=== PATIENT | male | born 1950 | race Caucasian/White ===

== ENCOUNTER 2020-06-23 15:03 | Observation (INO) | payer MEDICARE, SELFPAY ==
[2020-06-23] VITALS (7 sets, daily range): BP systolic 106–137; BP diastolic 60–78; PULSE 64–73; RESP 13–22; TEMP 36.7–37.3; O2SAT 97–99; BMI 29.2
--- NOTE | 2020-06-23 15:24 | DI.US.S_ITS ---
PROCEDURE: US ABDOMEN COMPLETE INDICATIONS: RULE OUT GALLBLADDER DISEASE TECHNIQUE: Real-time scanning was performed of the abdominal and retroperitoneal organs, with image documentation. COMPARISON: None. FINDINGS: Liver: Liver is normal in size and homogeneous in echotexture. Gallbladder: Gallbladder wall thickening measuring 8 mm. Positive sonographic Oshea sign is present. There are multiple gallstones measuring up to 8 mm. Biliary ducts: Intrahepatic bile ducts are non-dilated. Extrahepatic bile duct caliber measures 3 mm. Normal is 6-7 mm or less in diameter, or 10 mm or less post-cholecystectomy. Pancreas: Visualized portions of the pancreas are sonographically normal. Spleen: Spleen is normal in size and homogeneous in echotexture. Kidneys: Kidneys are normal in size and echotexture. Right kidney measures 10.3 cm long; left kidney measures 10.0 cm long. No hydronephrosis or nephrolithiasis. No solid masses. Aorta: Visualized aorta is normal in caliber at less than 3 cm. Iliacs: Proximal common iliac arteries are normal in caliber at less than 2.5 cm. IVC: Intrahepatic inferior vena cava is patent. Miscellaneous: No free abdominal fluid. IMPRESSION: Cholelithiasis, gallbladder wall thickening and sonographic Oshea sign suspicious for acute cholecystitis is as above. Recommend clinical correlation and with LFTs. Dictated by: Aamir Miramontes M.D. on 06/23/2020 at 17:12 Approved by: Aamir Miramontes M.D. on 06/23/2020 at 17:15
[2020-06-23 15:43] LABS: Add Manual Diff / Slide Review NO; Basophils Absolute Auto 100 /uL (0-100); Basophils Percent Auto 1.3 % (0-2); Eosinophils Absolute Auto 300 /uL (0-450); Eosinophils Percent Auto 4.8 % (2-4); Hematocrit 43.1 % (41-53); Hemoglobin 14.5 g/dL (13.5-17.5); Lymphocytes Absolute Auto 1200 /uL (1100-4500); Lymphocytes Percent Auto 17.4 % (25-40); Mean Corpuscular HGB Conc 33.7 % (30-36); Mean Corpuscular Hemoglobin 30.5 PG (26-34); Mean Corpuscular Volume 90.6 fL (80-100); Monocytes Absolute Auto 400 /uL (0-900); Monocytes Percent Auto 5.9 % (3-14); Neutrophils Absolute Auto 4900 /uL (1500-7000); Neutrophils Percent Auto 70.6 % (50-75); Platelet Count 210 X10^3/uL (150-400); Red Blood Cell Count 4.76 X10^6/uL (4.5-5.9); Red Cell Distribution Width 13.9 % (11.6-14.8)
[2020-06-23 15:52] LABS: Prothrombin Time 23.2 SECONDS (10.1-12.7)
[2020-06-23 15:54] LABS: PTT Partial Thromboplastin Tim 53 SECONDS (26.4-36.2)
[2020-06-23 15:57] LABS: Alanine Aminotransferase 287 IU/L (<50); Albumin 4.5 g/dL (3.5-5.0); Albumin Globulin Ratio 1.4 (1.0-2.8); Alkaline Phosphatase 152 U/L (38-126); Aspartate Aminotransferase 204 IU/L (17-59); Bilirubin Total 2.3 mg/dL (0.2-1.3); Blood Urea Nitrogen 13 mg/dL (9-20); Calcium 9.4 mg/dL (8.4-10.2); Carbon Dioxide 28 mmol/L (22-32); Chloride 104 mmol/L (98-107); Estimated Glomerular Filt Rate > 60.0 mL/min (>60); Globulin 3.2 g/dL (1.7-4.1); Glucose 120 mg/dL (80-110); HEMOLYSIS < 15 (0-50); Lipase 148 U/L (23-300); Potassium 3.9 mmol/L (3.4-5.1); Sodium 137 mmol/L (137-145); Total Protein 7.7 g/dL (6.3-8.2)
--- NOTE | 2020-06-23 18:08 | ED_ITS ---
HPI - Abdominal Pain General Chief Complaint: Recheck/Abnormal Lab/Rx Stated Complaint: sent by MD - liver issues Time Seen by Provider: 06/23/20 15:14 Source: patient and family Mode of arrival: Ambulatory History of Present Illness HPI narrative: Patient here with . Sent here from Dr. Dc, primary care in [place] for abnormal liver enzymes in the office. Complains of 3 days of right upper quadrant pain. Nausea but no vomiting. No diarrhea. No fever chills. No recent illness. No cough cold congestion fever chills. MD complaint: abdominal pain Related Data Home Medications Medication Instructions Recorded Confirmed metoprolol succinate 25 mg PO DAILY 06/23/20 06/23/20 nitroglycerin 0.3 mg SUBLINGUAL Q5MIN PRN 06/23/20 06/23/20 oxycodone 5 mg PO Q8HR PRN 06/23/20 06/23/20 sacubitril-valsartan [Entresto] 0.5 tab PO BID 06/23/20 06/23/20 warfarin 1 mg PO SEEINSTR 06/23/20 06/23/20 warfarin 2 mg PO SEEINSTR 06/23/20 06/23/20 Allergies Allergy/AdvReac Type Severity Reaction Status Date / Time No Known Drug Allergies Allergy Verified 06/23/20 18:53 Review of Systems Review of Systems Narrative: GENERAL: Denies chills, fatigue, malaise, fever, sweats. HEENT: Denies sinus pain, ear pain, sore throat RESPIRATORY: Denies dyspnea, cough CARDIOVASCULAR: Denies chest pain, palpitations GASTROINTESTINAL: Denies nausea, vomiting, complains abdominal pain : Denies dysuria, frequency, hematuria MUSCULOSKELETAL: denies muscle or bony pain SKIN: Denies rash, skin lesions NEUROLOGIC: Denies weakness, numbness ROS Unobtainable: All systems reviewed & are unremarkable except as noted in HPI and below Patient History Medical History (Updated 06/24/20 @ 12:04 by Pau Avalos MD) Acute calculous cholecystitis Social History household members: spouse and children Smoking Status: Never smoker alcohol intake: current Smoking Status: Never smoker alcohol intake frequency: holidays/special occasions only Exam Narrative Exam Narrative: GENERAL: in no distress, not toxic not dyspneic HEAD: Normocephalic. EYES: Pupils equal round No scleral icterus. No injection no discharge ENT: Mucous membranes moist. NECK: Trachea midline. CARDIOVASCULAR: Regular rate and rhythm without murmurs RESPIRATORY: Clear to auscultation. Breath sounds equal bilaterally. No wheezes, rales, or rhonchi. GASTROINTESTINAL: Abdomen soft, positive Oshea sign. Reproducible right upper quadrant tenderness. Bowel sounds present. No peritoneal signs. EXTREMITIES: No gross deformities. BACK: No flank tenderness. NEURO: AOx4. SKIN: Warm and dry PSYCH: Not anxious, is cooperative Initial Vital Signs Initial Vital Signs: Vital Signs Temperature 98.0 F 06/23/20 15:18 Pulse Rate 72 06/23/20 15:18 Respiratory Rate 16 06/23/20 15:18 Blood Pressure 127/60 06/23/20 15:18 Pulse Oximetry 97 06/23/20 15:18 Course Course Course Narrative: No new issues during course of stay Decision to Admit Date: 06/23/20 Decision to Admit time: 18:17 Orders Ordered: Acetaminophen (Acetaminophen 325 Mg Tablet) 650 mg PO Q6HR PRN PRN Reason: Fever/Mild Pain (1-3) Sodium Chloride (Normal Saline 0.9%) 1,000 mls @ 75 mls/hr IV CONT LESTER Last Infusion: 06/24/20 10:12 Dose: 0 mls/hr Documented by: Admin: 06/24/20 08:53 Dose: 75 mls/hr Documented by: Infusion: 06/24/20 08:22 Dose: 75 mls/hr Documented by: Admin: 06/23/20 19:02 Dose: 75 mls/hr Documented by: YOVANY Lactated Ringer's (Lactated Ringers) 1,000 mls @ 100 mls/hr IV CONT LESTER Last Admin: 06/24/20 10:11 Dose: 100 mls/hr Documented by: LINK Morphine Sulfate (Morphine 2 Mg/Ml Inj) 2 mg IV Q4HR PRN PRN Reason: Pain, Moderate (4-6) Last Admin: 06/24/20 08:39 Dose: 2 mg Documented by: Admin: 06/24/20 04:06 Dose: 2 mg Documented by: Admin: 06/23/20 21:30 Dose: 2 mg Documented by: YOVANY Ondansetron HCl (Ondansetron 4 Mg/2 Ml Inj) 4 mg IV Q4HR PRN PRN Reason: Nausea And Vomiting Discontinued Medications Piperacillin/Tazobactam/Dextrose (Zosyn) 3.375 gm in 50 mls @ 100 mls/hr IV NOW ONE Stop: 06/23/20 18:49 Last Admin: 06/23/20 19:02 Dose: 100 mls/hr Documented by: YOVANY Reevaluation(s) Reevaluation #1: Pain control at this time. Patient does not want anything. Understands admit and likely surgery tomorrow. Time: 18:17 Consultations Consultation #1: Spoke with Dr. Avalos, general surgeon. Will admit patient. Time: 18:17 Vital Signs Vital signs: Vital Signs - 8 hr 06/23/20 15:18 Temperature 98.0 F Pulse Rate 72 Respiratory Rate 16 Blood Pressure 127/60 Pulse Oximetry 97 MDM - Abdominal Pain Differential Diagnosis Differential diagnosis: Likely abdominal pain, constipation, diverticulitis, pancreatitis, small bowel obstruction and other (Acute cholecystitis) Lab Data Attestation: I reviewed the patient's lab results. Result diagrams: 06/23/20 15:35 06/24/20 09:51 Labs: Lab Results 06/23/20 06/23/20 06/23/20 Range/Units 15:35 15:35 15:35 WBC 7.0 (4.5-11.0) X10^3/uL RBC 4.76 (4.5-5.9) X10^6/uL Hgb 14.5 (13.5-17.5) g/dL Hct 43.1 (41-53) % MCV 90.6 (80-100) fL MCH 30.5 (26-34) PG MCHC 33.7 (30-36) % RDW 13.9 (11.6-14.8) % Plt Count 210 (150-400) X10^3/uL Neut % (Auto) 70.6 (50-75) % Lymph % (Auto) 17.4 L (25-40) % [place] % (Auto) 5.9 (3-14) % Eos % (Auto) 4.8 H (2-4) % Baso % (Auto) 1.3 (0-2) % Neut # (Auto) 4900 (7820-9756) /uL Lymph # (Auto) 1200 (2904-8729) /uL [place] # (Auto) 400 (0-900) /uL Eos # (Auto) 300 (0-450) /uL Baso # (Auto) 100 (0-100) /uL PT 23.2 H (10.1-12.7) SECONDS INR 2.0 H (0.9-1.3) APTT 53 H (26.4-36.2) SECONDS Sodium 137 (137-145) mmol/L Potassium 3.9 (3.4-5.1) mmol/L Chloride 104 (98-107) mmol/L Carbon Dioxide 28 (22-32) mmol/L BUN 13 (9-20) mg/dL Creatinine 1.18 (0.66-1.25) mg/dL Estimated GFR > 60.0 (>60) mL/min BUN/Creatinine Ratio 11.0 (6-22) Glucose 120 H (80-110) mg/dL Calcium 9.4 (8.4-10.2) mg/dL Total Bilirubin 2.3 H (0.2-1.3) mg/dL AST 204 H (17-59) IU/L ALT 287 H (<50) IU/L Alkaline Phosphatase 152 H (38-126) U/L Total Protein 7.7 (6.3-8.2) g/dL Albumin 4.5 (3.5-5.0) g/dL Globulin 3.2 (1.7-4.1) g/dL Albumin/Globulin Ratio 1.4 (1.0-2.8) Lipase 148 (23-300) U/L SARS-CoV-2 (PCR) (Negative) 06/23/20 Range/Units 18:00 WBC (4.5-11.0) X10^3/uL RBC (4.5-5.9) X10^6/uL Hgb (13.5-17.5) g/dL Hct (41-53) % MCV (80-100) fL MCH (26-34) PG MCHC (30-36) % RDW (11.6-14.8) % Plt Count (150-400) X10^3/uL Neut % (Auto) (50-75) % Lymph % (Auto) (25-40) % [place] % (Auto) (3-14) % Eos % (Auto) (2-4) % Baso % (Auto) (0-2) % Neut # (Auto) (8568-5762) /uL Lymph # (Auto) (5619-5674) /uL Cabell # (Auto) (0-900) /uL Eos # (Auto) (0-450) /uL Baso # (Auto) (0-100) /uL PT (10.1-12.7) SECONDS INR (0.9-1.3) APTT (26.4-36.2) SECONDS Sodium (137-145) mmol/L Potassium (3.4-5.1) mmol/L Chloride (98-107) mmol/L Carbon Dioxide (22-32) mmol/L BUN (9-20) mg/dL Creatinine (0.66-1.25) mg/dL Estimated GFR (>60) mL/min BUN/Creatinine Ratio (6-22) Glucose (80-110) mg/dL Calcium (8.4-10.2) mg/dL Total Bilirubin (0.2-1.3) mg/dL AST (17-59) IU/L ALT (<50) IU/L Alkaline Phosphatase (38-126) U/L Total Protein (6.3-8.2) g/dL Albumin (3.5-5.0) g/dL Globulin (1.7-4.1) g/dL Albumin/Globulin Ratio (1.0-2.8) Lipase (23-300) U/L SARS-CoV-2 (PCR) Negative (Negative) Imaging Data US - abdomen: Radiologist's Impression: [address] [id number] ReportSigned Patient: Luis Mckeon LMR#: [id number]: 1950cct:[id number]/Sex: 69 / MDate of Service: 06/23/20Loc: EDAccession Number: [id number] Procedure: US abdomen complete Ordering Provider: Gil Davalos MD PROCEDURE: US ABDOMEN COMPLETE INDICATIONS: RULE OUT GALLBLADDER DISEASE TECHNIQUE: Real-time scanning was performed of the abdominal and retroperitoneal organs, with image documentation. COMPARISON: None. FINDINGS: Liver: Liver is normal in size and homogeneous in echotexture. Gallbladder: Gallbladder wall thickening measuring 8 mm. Positive sonographic Oshea sign is present. There are multiple gallstones measuring up to 8 mm. Biliary ducts: Intrahepatic bile ducts are non-dilated. Extrahepatic bile duct caliber measures 3 mm. Normal is 6-7 mm or less in diameter, or 10 mm or less post-cholecystectomy. Pancreas: Visualized portions of the pancreas are sonographically normal. Spleen: Spleen is normal in size and homogeneous in echotexture. Kidneys: Kidneys are normal in size and echotexture. Right kidney measures 10.3 cm long; left kidney measures 10.0 cm long. No hydronephrosis or nephrolithiasis. No solid masses. Aorta: Visualized aorta is normal in caliber at less than 3 cm. Iliacs: Proximal common iliac arteries are normal in caliber at less than 2.5 cm. IVC: Intrahepatic inferior vena cava is patent. Miscellaneous: No free abdominal fluid. IMPRESSION: Cholelithiasis, gallbladder wall thickening and sonographic Oshea sign suspicious for acute cholecystitis is as above. Recommend clinical correlation and with LFTs. Dictated by: Aamir Miramontes M.D. on 06/23/2020 at 17:12 Approved by: Aamir Miramontes M.D. on 06/23/2020 at 17:15 [facility] Narrative Medical decision making narrative: Appropriate for admission. Will need surgic al consult/admit Discharge Plan Departure Patient Disposition: Admitted as Observation Clinical Impression: Acute calculous cholecystitis Admit Date/Time: 06/23/20 18:08 Admit Provider: Pau Avalos
[2020-06-23 18:19] LABS: COVID19 -Nasal RAPID Negative (Negative)
[2020-06-23] MEDS: PIPERACILLIN-TAZO 3.375 GM/50 ML FROZ.PIGGY IV (19:02)
[2020-06-23] MEDS: SODIUM CHLORIDE 0.9% 1,000 ML 75 ML IV (19:02)
--- NOTE | 2020-06-23 19:14 | PC.NURSE ---
Admission note: Patient arrived via wheelchair accompanied by and ED QUALITY ASSURANCE ADVISOR, transferred self to inpatient bed and ambulated to toilet with no difficulties. Denies recent hx of falls. Hx of mechanical heart valve for which he takes warfarin, tele placed and ICU notified. Patient has not taken his warfarin today. C/o chest pain r/t anxiety of needing surgery, does have a history of angina for which he's prescribed nitro but has not taken his home prescription in a while. VSS and on room air. Low fall risk, bed alarm on d/t IV fluids infusion, call light and fall risk safety education given, acknowledges all instructions.
[2020-06-23] MEDS: MORPHINE 2 MG/ML INJ IV (21:30)
[2020-06-24 01:29] VITALS: BP 110/67; PULSE 69; RESP 14; TEMP 36.4; O2SAT 97
[2020-06-24] MEDS: MORPHINE 2 MG/ML INJ IV ×5 (04:06→23:17)
[2020-06-24 04:40] VITALS: BP 125/70; PULSE 83; RESP 18; TEMP 36.6; O2SAT 96
[2020-06-24] MEDS: SODIUM CHLORIDE 0.9% 1,000 ML 75 ML IV (08:53)
[2020-06-24 10:09] LABS: INR 1.9 (0.9-1.3); Prothrombin Time 22.4 SECONDS (10.1-12.7)
[2020-06-24] MEDS: LACTATED RINGERS 1,000 ML 100 ML IV ×2 (10:11→23:11)
[2020-06-24 10:12] LABS: Alanine Aminotransferase 175 IU/L (<50); Albumin 3.5 g/dL (3.5-5.0); Albumin Globulin Ratio 1.2 (1.0-2.8); Alkaline Phosphatase 116 U/L (38-126); Aspartate Aminotransferase 84 IU/L (17-59); BUN Creatinine Ratio 11.8 (6-22); Bilirubin Total 1.9 mg/dL (0.2-1.3); Blood Urea Nitrogen 12 mg/dL (9-20); Calcium 8.6 mg/dL (8.4-10.2); Carbon Dioxide 27 mmol/L (22-32); Chloride 109 mmol/L (98-107); Estimated Glomerular Filt Rate > 60.0 mL/min (>60); Globulin 2.9 g/dL (1.7-4.1); Glucose 88 mg/dL (80-110); HEMOLYSIS 31 (0-50); Potassium 3.9 mmol/L (3.4-5.1); Sodium 137 mmol/L (137-145); Total Protein 6.4 g/dL (6.3-8.2)
[2020-06-24 11:18] VITALS: BP 96/62; PULSE 67; RESP 19; TEMP 36.7; O2SAT 97
--- NOTE | 2020-06-24 11:52 | P.HP_ITS ---
History of Present Illness History of Present Illness Date Patient Seen: 06/24/20 Time Patient Seen: 08:53 Date of Onset of Symptoms: 06/21/20 Chief complaint: sent by MD - liver issues Narrative: 69 yo male seen in consult for Dr. Bell in ED for 3 days of RUQ pain, decreased appetite, nausea. no fevers. he has had prior events that slaughter bsided w/o hospitalization. Has congenital heart defect and on coumadin. COVID negative. Patient History Medical History (Updated 06/24/20 @ 12:03 by Pau Avalos MD) Acute calculous cholecystitis Family & Social History Social History: household members spouse,children Prior Living Arrangements Apartment/Condo Safety & Behavioral: Feels Safe in Current Yes Environment Been Physically Hurt or No Threatened By a Person Suicidal Ideation Description None Suicide Plan Description No Plan Tobacco & Substance use: Smoking Status Never smoker alcohol intake current alcohol intake frequency holiday/special occasion Substance Use Type does not use Meds Home Medications and Allergies Home Medications Medication Instructions Recorded Confirmed Type metoprolol succinate 25 mg PO DAILY 06/23/20 06/23/20 History nitroglycerin 0.3 mg SUBLINGUAL Q5MIN PRN 06/23/20 06/23/20 History oxycodone 5 mg PO Q8HR PRN 06/23/20 06/23/20 History sacubitril-valsartan [Entresto] 0.5 tab PO BID 06/23/20 06/23/20 History warfarin 1 mg PO SEEINSTR 06/23/20 06/23/20 History warfarin 2 mg PO SEEINSTR 06/23/20 06/23/20 History Allergies Allergy/AdvReac Type Severity Reaction Status Date / Time No Known Drug Allergies Allergy Verified 06/23/20 18:53 Review of Systems Review of Systems ROS: Yes All systems reviewed with the patient and are negative except as otherwise documented Gastrointestinal Gastrointestinal: Reports abdominal pain Exam Vital Signs (past 8 hours): - 06/24/20 04:40 Temperature 97.9 F Pulse Rate 83 Respiratory Rate 18 Blood Pressure 125/70 Pulse Oximetry 96 Oxygen Delivery Method Room Air Oxygen Flow Rate 0 Const General: cooperative HENMT Head: normocephalic and atraumatic Mouth: oral mucosae normal Eyes Sclera: sclerae normal Neck Neck: trachea midline Chest Chest: normal inspection of the chest (midline scar, reports discomfort left upper chest with deep breath) Resp Effort & Inspection: normal respiratory effort and able to speak in complete sentences Cardio Rate: regular rate Rhythm: regular rhythm GI Inspection: distended Palpation: soft and tender (RUQ) Skin General: no rashes or lesions noted Neuro General: patient alert, patient oriented x3 and no focal motor deficits Extrem General: normal to inspection and full ROM Psych Judgment: judgment good Objective Labs Result Diagrams: 06/23/20 15:35 06/24/20 09:51 Labs: Laboratory Results - last 24 hr 06/23/20 06/23/20 06/23/20 15:35 15:35 15:35 WBC 7.0 RBC 4.76 Hgb 14.5 Hct 43.1 MCV 90.6 MCH 30.5 MCHC 33.7 RDW 13.9 Plt Count 210 Neut % (Auto) 70.6 Lymph % (Auto) 17.4 L [place] % (Auto) 5.9 Eos % (Auto) 4.8 H Baso % (Auto) 1.3 Neut # (Auto) 4900 Lymph # (Auto) 1200 [place] # (Auto) 400 Eos # (Auto) 300 Baso # (Auto) 100 PT 23.2 H INR 2.0 H APTT 53 H Sodium 137 Potassium 3.9 Chloride 104 Carbon Dioxide 28 BUN 13 Creatinine 1.18 Estimated GFR > 60.0 BUN/Creatinine Ratio 11.0 Glucose 120 H Calcium 9.4 Total Bilirubin 2.3 H AST 204 H ALT 287 H Alkaline Phosphatase 152 H Total Protein 7.7 Albumin 4.5 Globulin 3.2 Albumin/Globulin Ratio 1.4 Lipase 148 SARS-CoV-2 (PCR) 06/23/20 06/24/20 06/24/20 18:00 09:34 09:51 WBC RBC Hgb Hct MCV MCH MCHC RDW Plt Count Neut % (Auto) Lymph % (Auto) [place] % (Auto) Eos % (Auto) Baso % (Auto) Neut # (Auto) Lymph # (Auto) [place] # (Auto) Eos # (Auto) Baso # (Auto) PT 22.4 H INR 1.9 H APTT Sodium 137 Potassium 3.9 Chloride 109 H Carbon Dioxide 27 BUN 12 Creatinine 1.02 Estimated GFR > 60.0 BUN/Creatinine Ratio 11.8 Glucose 88 Calcium 8.6 Total Bilirubin 1.9 H AST 84 H ALT 175 H Alkaline Phosphatase 116 Total Protein 6.4 Albumin 3.5 Globulin 2.9 Albumin/Globulin Ratio 1.2 Lipase SARS-CoV-2 (PCR) Negative Assessment & Plan Assessment and plan (1) Acute calculous cholecystitis: Problem details: US confirms acute glenis. elevated LFT's trending down consistent with no true biliary obstruction. INR 1.9 today. Plan: Lap glenis in am to allow INR to drift to safer value. Status: Acute Quality VTE Deep Vein Thrombosis/Pulmonary Embolism Present on Admission: No
--- NOTE | 2020-06-24 13:11 | CM.DANOTE ---
Patient is a 69 yo male who was admitted on 06/23/20 for Liver Issues. Pt has MCR and AARP for insurance and his PCP is Dr. Mohini Dc in [facility]. EMR was reviewed. Per MD, pt with gallbladder thickening and awaiting Surgeon Consult to determine possible surgery for cholecystitis. Per linen keeper, pt scheduled for 1400 surgery today. SW met bedside with pt and explained role and he confirms he has not seen the Surgeon Dr. Avalos yet bedside and unsure if he will need surgery. He states he lives at home in an apt in [place] with his , who does not drive, and his adult son who does drive. Pt is retired and independent with ADL's at baseline and still drives himself and states his son and can assist if needed at d/c. Pt denies any DPOA but plans to complete pwk in the near future. Pt denies any hx of SNF but states he used HH after one of his open heart surgeries. Pt preference is to d/c home with family assist when medically stable. Plan: SW to follow tomorrow to determine how pt is progressing after scheduled surgery with Surgeon regarding his gallbladder at 1400 today to confirm if he will be safe for d/c home with family assist and any further identified needs. MARIO Escalera Discharge Planning/Care Management CM Discharge Assessment Start: 06/24/20 13:10 Freq: Status: Active Protocol: Document 06/24/20 13:10 BF (Rec: 06/24/20 13:11 BF [id number]) Discharge Planning Assessment Assigned Content Writer MARIO Amaro DPOA/Assigned Designee Name none, considering DPOA pwk Advance Directives? No Advance Directives on File No History Provided By Patient,Family Member,Medical Record Has Patient been admitted in last 30 No days? Prior Living Arrangements Apartment/Condo Household Members spouse,children Type of transporation used prior to Drives own vehicle admit Independent with ADL's Yes Is patient alert and oriented? Yes Caregiver for Another No Comment Pending pt's needs after surg today at 1400 Barriers to Discharge No Discharge Plan Home with Home Health Transportation Arrangement Pt states his son can provide transport at d/c Additional Comment Pending surg today Whiteboard Updated in Patient Room with Yes name and ext. # of Content Writer Review Status In Process Please Provide Date Initial DC 06/24/20 Assessment Was Performed Next Review Type Continued Stay Review
--- NOTE | 2020-06-24 15:52 | PC.NURSE ---
1200- Dr. Avalos reports pt will not have surgery today, but scheduled it for tomorrow 0745. She placed consent form in chart, unsigned, stated she will have him sign it when he is brought down for pre-op tomorrow am. Verbal order for Low Fat diet for lunch and dinner, NPO at midnight.
[2020-06-24 16:38] VITALS: BP 100/60; PULSE 75; RESP 17; TEMP 36.6; O2SAT 97
[2020-06-24 19:45] VITALS: BP 120/66; PULSE 75; RESP 18; TEMP 36.6; O2SAT 100
[2020-06-24 23:00] VITALS: BP 116/69; PULSE 64; RESP 18; TEMP 36.8; O2SAT 96
[2020-06-25] VITALS (23 sets, daily range): BP systolic 100–145; BP diastolic 63–81; PULSE 6–91; RESP 8–18; TEMP 36.4–37.6; O2SAT 92–100; BMI 29.1
--- NOTE | 2020-06-25 | PATH_ITS ---
[facility] Accession Number: [id number] . 01 Material submitted: . gallbladder - GALLBLADDER . 01 Clinical history: . SEND BY LIVER ISSUES . 02 Diagnosis: Gallbladder, Cholecystectomy: Cholelithiasis with mild chronic cholecystitis and cholesterolosis. No evidence of neoplasm. MRV 06/30/2020 1027 Local . 02 Electronically signed: . Jericho Burciaga MD, PhD, Pathologist NPI- [id number] . 01 Gross description: . The specimen is received in formalin, labeled gallbladder, and consists of a 7.0 x 3.0 x 2.8 cm previously disrupted gallbladder with a 0.3 cm in diameter cystic duct. The serosa is pink-purple to carranza and wrinkled. Opening reveals green viscous bile with multiple carranza-green cholelith fragments ranging from 0.1-0.4 cm and measuring 2.5 x 2.5 x 1.0 cm in aggregate. The mucosa is carranza-green with severe cholestrolosis. The wall thickness measures 0.3 cm. Dental Service Chief sections are submitted, to include the en face cystic duct margin, in cassette A1. ([id number]) /[facility] 06/27/2020 1500 Local . 02 Pathologist provided ICD-10: K80.60, K81.1 . 02 CPT . 465194 Performed at: 01 [facility] [address] [id number] MD Zhang Echeverria MD Phone: [phone] Performed at: 02 [facility] [address] [place], [place] [id number] MD Lis Gonzalez MD Phone: [phone]
[2020-06-25] MEDS: ONDANSETRON 4 MG/2 ML INJ IV (02:37)
[2020-06-25] MEDS: LACTATED RINGERS 1,000 ML 42 ML IV (07:20)
--- NOTE | 2020-06-25 07:22 | PC.NURSE ---
Patient was taken to OR via stretcher at 0710. Telemetry was removed by PHYSICS TECHNICAL OFFICER before departing.
--- NOTE | 2020-06-25 07:26 | PC.NURSE ---
Patient not in room, picked up for surgery at 0705am. Report received from nightshift, plan to assume care upon his return.
--- NOTE | 2020-06-25 07:41 | PM.PREOP ---
Pre-operative Note COVID-19 COVID-19 status: Negative Interval Note History & Physical reviewed/Exam performed by Physician: Yes Changes to H&P: No
[2020-06-25] MEDS: ACETAMINOPHEN 325 MG TABLET 650 MG PO (08:04)
[2020-06-25] MEDS: METOPROLOL ER 25 MG TABLET PO (08:05)
[2020-06-25] MEDS: OXYCODONE IR 5 MG TABLET PO ×4 (08:05→16:17)
[2020-06-25] MEDS: CEFAZOLIN 2 GM/100 ML FROZ.PIGGY IV (09:10)
--- NOTE | 2020-06-25 09:22 | SUR.OPER ---
Supine on padded OR bed, head on pillow, arms secured on padded arm boards at <90 degrees abduction, legs uncrossed, safety belt at thigh, tape over blanket over lower legs.
[2020-06-25] MEDS: BUPIVACAINE 0.5% W/ EPI (PF) 30 ML VIAL INJ (09:39)
--- NOTE | 2020-06-25 10:35 | PM.OP.1 ---
Operative Date/Time/Diagnoses Date of procedure: 06/25/20 Time of procedure: 10:36 Pre-op diagnosis: acute cholecystitis Post-op diagnosis: same Procedure & Clinicians Same procedure as scheduled: Yes Post-operative Condition: stable Disposition: PACU Plan for aftercare: Discharge home.
[2020-06-25] MEDS: LACTATED RINGERS 1,000 ML 100 ML IV ×2 (10:36→17:18)
--- NOTE | 2020-06-25 10:36 | PM.OP.1 ---
Procedure & Clinicians Procedure: Laparoscopic cholecystectomy Same procedure as scheduled: Yes Indications: Acute cholecystitis Surgeon: Pau Avalos Click Yes if Unassisted: Yes Anesthesia Type: General Operative Notes Findings: Acute cholecystitis Closure Type: primary Specimen(s): other Estimated Blood Loss (mL): 20 Blood products transfused: none Procedure in detail: Patient is placed in a supine position. Prepped and draped in sterile fashion. Infraumbilical port site was placed in open technique and a 12 mm port. Insufflation began in all other ports were placed under direct vision, this included 11 mm port in the midepigastrium, 2 5 mm ports in the right lateral abdomen. Gallbladder was identified, decompressed, then lifted cephalad for exposure. Cystic duct was identified clipped once distally twice proximally and transected. Cystic artery was identified clipped once distally once proximally and transected. Gallbladder is removed from the fossa with electrocautery and excellent hemostasis. There was no spillage of stones, small amount of bile spillage which was irrigated to a clear return. Gallbladder was placed into an Endo-Catch bag and pulled through the umbilical port site intact. Abdomen was surveyed for hemostasis and suctioned free of any retained fluid or clot. I then removed all ports and began closure. Closure consisted of interrupted 0 Vicryl for fascial closure at the umbilical port site. Skin was closed a running 4-0 Vicryl. Steri-Strips and sterile dressings were placed. Patient was awakened, extubated, taken to recovery room in stable condition. Needle, instrument, sponge counts were correct. Blood loss: 20 mL Specimen: Gallbladder Complications: none
[2020-06-25] MEDS: fentaNYL 100 MCG/2 ML INJ IV ×3 (12:23→12:33)
--- NOTE | 2020-06-25 14:27 | PC.NURSE ---
Patient still off unit in PACU
--- NOTE | 2020-06-25 14:32 | SUR.PHASEII ---
Assumed pt from Noman Phoenix RN, pt on his way to , fairly steady on feet with SBA. Pt voided in BR, bloody drainage on floor in BR and drips from BR to bed. pressure to wound x 5minutes then new steri stips placed. Wound still oozing bloody drainage. Dr. Kulkarni called instructed to hold pressure for 10 minutes. Pressure held for 10 minutes, new steri strips again applied, wound still oozing, reinforced with [address] Kulkarni called again. Pt to stay over night, Kayla LEACH coordinator upstairs notified. Report called to HANY Hyde. Awaiting transfer orders from Dr. Kulkarni. Pt up to BR to void again, wound again leaked reinforced with gauze.
--- NOTE | 2020-06-25 15:11 | SUR.PHASEII ---
Pt transported up to room 210, left in stable condition with Barrett LEACH.
--- NOTE | 2020-06-25 15:29 | PC.NURSE ---
Patient received from PACU at 1500 back to his room, after orders for patient to stay overnight. at bedside. VSS. Patient awake and talkative, states his pain is minimal at about 2/10 to his abdomen. Steri strips and gauze dressing in place to lap sites to abdomen, all CDI, no bleeding or drainage noted after he was up to bathroom this time. Call light within reach. Report given to evening shift RN.
[2020-06-25 15:50] LABS: Hematocrit 42.6 % (41-53)
[2020-06-25] MEDS: MORPHINE 2 MG/ML INJ IV ×2 (17:17→23:38)
[2020-06-25] MEDS: IBUPROFEN 600 MG TABLET PO ×2 (17:17→23:37)
[2020-06-25] MEDS: WARFARIN 1 MG TABLET PO (17:18)
[2020-06-26] MEDS: OXYCODONE IR 5 MG TABLET PO ×2 (01:50→10:36)
[2020-06-26 05:00] VITALS: BP 98/58; PULSE 63; RESP 18; TEMP 36.4; O2SAT 95
[2020-06-26] MEDS: LACTATED RINGERS 1,000 ML 100 ML IV (05:01)
[2020-06-26] MEDS: IBUPROFEN 600 MG TABLET PO (05:05)
[2020-06-26] MEDS: MORPHINE 2 MG/ML INJ IV (05:54)
[2020-06-26 07:50] VITALS: BP 101/61; PULSE 64; RESP 15; TEMP 36.3; O2SAT 94
[2020-06-26 08:24] VITALS: BP 102/56; PULSE 70
[2020-06-26] MEDS: Sacubitril-Valsartan [Entresto] 24-26 mg 0.5 EACH PO (09:33)
--- NOTE | 2020-06-26 09:54 | PM.DS.1 ---
History of Present Illness History of Present Illness Chief complaint: sent by MD - liver issues Narrative: 69 yo male seen in consult for Dr. Bell in ED for 3 days of RUQ pain, decreased appetite, nausea. no fevers. he has had prior events that subsided w/o hospitalization. Has congenital heart defect and on coumadin. COVID negative. Discharge Providers Provider Date of admission: 06/23/20 18:08 Discharge Date: 06/26/20 Primary care physician: JAMAL Morris Discharge provider: Pau Avalos MD Summary Hospital Course Discharge Diagnosis: acute glenis, chronic anticoagulation. Hospital Course: uncomplicated post op. held for pain control and observation of bleeding vs drainage for port site that was actually drainage only Status at Discharge Cognitive/behavioral status at discharge: at baseline, oriented Time Spent with Patient Time spent: Less than 30 minutes Exam Vital Signs (past 8 hours): - 06/26/20 05:00 06/26/20 07:50 06/26/20 08:24 Temperature 97.6 F 97.3 F L Pulse Rate 63 64 70 Respiratory Rate 18 15 Blood Pressure 98/58 L 101/61 102/56 L Pulse Oximetry 95 94 Oxygen Delivery Method Room Air Oxygen Flow Rate 0 Const General: cooperative and comfortable Eyes General: appearance normal, both eyes and all related structures Cardio Rhythm: regular rhythm GI Palpation: soft and tender (incisional tenderness, no further drainage) Objective Labs Result Diagrams: 06/25/20 15:23 06/24/20 09:51 Labs: Laboratory Results - last 24 hr 06/25/20 15:23 Hct 42.6 PFSH Medical History Acute calculous cholecystitis Ascending aortic aneurysm Chronic pain HTN (hypertension) Kidney stones Surgical History AICD (automatic cardioverter/defibrillator) present S/P AVR (aortic valve replacement) and aortoplasty S/P CABG (coronary artery bypass graft) Status post laparoscopic cholecystectomy Social History household members: spouse and children Smoking Status: Never smoker alcohol intake: current Discharge Assessment & Plan Assessment and Plan Assessment: a/p lap glenis. no further drainage from port site. no clinical complication. incision pain Plan of Treatment: final check on CBC and CMP, if baseline or appropriate patient can discharge home with follow up [facility] in 2-4 weeks. Discharge Plan Discharge Plan Patient Disposition: Home Provider Discharge Comment: follow up with [facility] in 2-4 weeks Nursing Discharge Comment: per Dr Avalos, pt to start warfarin tonight as previously prescribed. Discharge orders & Medications Prescriptions: New oxycodone-acetaminophen [Percocet] 10-325 mg tablet 1 tab PO Q8H PRN (Reason: pain) Qty: 20 RF: 0 Continued nitroglycerin 0.3 mg tablet, sublingual 0.3 mg sublingual Q5MIN PRN (Reason: Chest Pain) RF: 0 metoprolol succinate 25 mg tablet extended release 24 hr 25 mg PO DAILY RF: 0 warfarin 1 mg tablet 2 mg PO SEEINSTR RF: 0 warfarin 1 mg tablet 1 mg PO SEEINSTR RF: 0 oxycodone 5 mg tablet 5 mg PO Q8HR PRN (Reason: Pain (Scale Score 4-6)) RF: 0 Entresto 24-26 mg tablet 0.5 tab PO BID RF: 0 Follow up/Referrals: Mohini Dc ARNP [Primary Care Provider] - Diet/Activity/Treatments Diet: Diet as Tolerated Activity: no heavy lifting greater than 15 lbs for 4 weeks. Skin/Wound/Dressing Care Report to your healthcare provider any signs of infection, such as:: chills, fever, increased pain, unusual drainage and unusual redness Visit Report/Discharge Packet Instructions: DI for Laparoscopy, DI for Prescription Opioid Use, [facility]: Wound Care Stand Alone Forms: Surgery Discharge Discharge Data Primary Care Provider: Mohini Dc Attending Provider: Pau Avalos VTE Deep Vein Thrombosis/Pulmonary Embolism Present on Admission: No
[2020-06-26] MEDS: ENOXAPARIN 80 MG/0.8 ML SYRINGE SUBCUT (10:35)
[2020-06-26] MEDS: ONDANSETRON 4 MG ODT 8 MG PO (10:36)
[2020-06-26 11:20] LABS: Hematocrit 38.5 % (41-53); Hemoglobin 12.7 g/dL (13.5-17.5); Mean Corpuscular HGB Conc 33.1 % (30-36); Mean Corpuscular Volume 90.8 fL (80-100); Platelet Count 182 X10^3/uL (150-400); Red Blood Cell Count 4.24 X10^6/uL (4.5-5.9); Red Cell Distribution Width 13.9 % (11.6-14.8); White Blood Cell Count 10.4 X10^3/uL (4.5-11.0)
[2020-06-26 11:37] LABS: Alanine Aminotransferase 134 IU/L (<50); Albumin 3.4 g/dL (3.5-5.0); Albumin Globulin Ratio 1.2 (1.0-2.8); Alkaline Phosphatase 120 U/L (38-126); Aspartate Aminotransferase 74 IU/L (17-59); BUN Creatinine Ratio 17.6 (6-22); Bilirubin Total 1.1 mg/dL (0.2-1.3); Blood Urea Nitrogen 19 mg/dL (9-20); Calcium 9.1 mg/dL (8.4-10.2); Carbon Dioxide 31 mmol/L (22-32); Chloride 103 mmol/L (98-107); Estimated Glomerular Filt Rate > 60.0 mL/min (>60); Globulin 2.9 g/dL (1.7-4.1); Glucose 107 mg/dL (80-110); Sodium 136 mmol/L (137-145); Total Protein 6.3 g/dL (6.3-8.2)
[2020-06-26 11:43] LABS: HEMOLYSIS < 15 (0-50); Potassium 4.3 mmol/L (3.4-5.1)
--- NOTE | 2020-06-26 11:45 | PC.NURSE ---
VSS. Pain controlled with PRN oxy and nausea controlled with PRN zofran. Given discharge instructions and all questions answered. Escorted to personal vehicle by wheel chair, son driving him home. Off of unit at 11:47.
--- NOTE | 2020-07-01 17:06 | PC.NURSE ---
Late Entry; Zosyn infusion initiated /2 at 19:02 complete at 19:33.
== END 2020-06-26 11:45 | disposition home or self-care (01) ==
LOC: ED 17:56 → AC 18:09
PROVIDERS: Admitting Provider Surgery; Emergency Provider Emergency Medicine; PCP Nurse Practitioner Family; Referring Provider Emergency Medicine; Visit Provider Surgery
PROC: 0FT44ZZ Resection of Gallbladder, Percutaneous Endoscopic Approach (ICD-10-PCS; CPT 47562; principal; 2020-06-25 07:45)
DX: K80.00 Calculus of gallbladder with acute cholecystitis without obstruction (principal); R10.11 Right upper quadrant pain; Z95.0 Presence of cardiac pacemaker; Z95.1 Presence of aortocoronary bypass graft; I50.9 Heart failure, unspecified; I10 Essential (primary) hypertension; Z20.822 Contact with and (suspected) exposure to COVID-19
CPT/HCPCS: 47562; 36415; 76700; 80053; 83690; 85014; 85025; 85027; 85610; 85730; 87635; 96361; 96365; 96372; 96375; 96376; 99219; 99283; 99284; C9803; G0378; J0330; J0690; J1100; J1650; J2250; J2270; J2405; J2543; J2704; J3010

== ENCOUNTER 2021-11-17 11:12 | Inpatient (IN) | payer MEDICARE, SELFPAY ==
[2020-06-29 15:34] VITALS: BMI 29.2
[2021-11-17] VITALS (12 sets, daily range): BP systolic 97–151; BP diastolic 59–77; PULSE 50–78; RESP 14–19; TEMP 35.7–36.5; O2SAT 96–98; BMI 28.1
--- NOTE | 2021-11-17 11:25 | DI.CT.S_ITS ---
PROCEDURE: CT ANGIO HEAD AND NECK INDICATIONS: Possible stroke TECHNIQUE: Noncontrast images were performed earlier in the day and not repeated. After the administration of intravenous contrast, 1 mm thick sections acquired from the aortic arch through the Kiana of Garcia. Post-contrast 4.5 mm thick sections then re-acquired from the foramen magnum to the vertex. 3-dimensional kznevff-nnxpbyhuf-cwlvwfgvhp (MIP) and/or volume rendering reformats were acquired of the central intracranial vasculature and neck separately. For radiation dose reduction, the following was used: automated exposure control, adjustment of mA and/or kV according to patient size. COMPARISON: [facility], CR, XR CHEST 1V, 11/17/2021, 11:37. [facility], CT, CT STROKE, 11/17/2021, 11:30. FINDINGS: Image quality: Limited by bolus timing, with venous contamination. BRAIN: CSF spaces: Ventricles are normal in size and shape. Basal cisterns are patent. No extra-axial fluid collections. Brain: No midline shift. No intracranial bleeds or masses. Chen-white matter interface appears intact. Skull and face: Calvarium and facial bones appear intact, without suspicious lesions. Orbits appear normal. Sinuses: Mild paranasal sinus disease is seen. No abnormal fluid is seen within the mastoid air cells. HEAD CT ANGIOGRAPHY: Anterior circulation: Intracranial internal carotid arteries are normal in size and flow. The flow within the paired anterior cerebral arteries is normal and symmetric. The flow within the middle cerebral arteries is normal and symmetric. The anterior communicating artery is seen. No aneurysms are seen. Posterior circulation: Visualized portions of the vertebral arteries demonstrate normal caliber, and join to form a normal appearing basilar artery. Flow within the posterior cerebral arteries is normal and symmetric. No aneurysms are seen. NECK CT ANGIOGRAPHY: Carotid system: Incidental note is made of a common origin of the right brachiocephalic artery and the left common carotid artery (bovine type arch). This is considered to be a developmental variant of no clinical consequence. The origins of the common carotid arteries appear patent. The common carotid arteries demonstrate normal caliber and courses. The bifurcation regions are both widely patent. The internal carotid arteries demonstrate normal calibers and courses. Posterior circulation: The origins of the vertebral arteries both appear widely patent. The more superior extracranial portions of both vertebral arteries also demonstrate normal courses and calibers. They join to form a normal appearing basilar artery. Soft tissues: Visualized neck soft tissues demonstrate no suspicious abnormalities. Left-sided pacer leads are seen Bones: No suspicious bony lesions. Visualized cervical spine appears normally aligned. Moderate cervical spine degenerative change can be seen. Sternotomy wires are partially seen. IMPRESSION: No significant intracranial arterial abnormality is seen. Within the arteries of the neck, no hemodynamically significant stenosis can be seen. Incidental note is made of: Moderate cervical spine degenerative change Bovine type aortic branching pattern Left-sided pacer leads Sternotomy wires Any quantitative measurements of stenosis were performed using NASCET criteria. Dictated by: Rosalio Mares M.D. on 11/17/2021 at 10:56 Approved by: Rosalio Mares M.D. on 11/17/2021 at 10:59
--- NOTE | 2021-11-17 11:25 | DI.CT.S_ITS ---
PROCEDURE: CT STROKE INDICATIONS: Positive BE-FAST, Stroke symptoms TECHNIQUE: Noncontrast 4.5 mm thick angled axial sections acquired from the foramen magnum to the vertex, with coronal reformats. For radiation dose reduction, the following was used: automated exposure control, adjustment of mA and/or kV according to patient size. COMPARISON: None. FINDINGS: Image quality: Excellent. CSF spaces: Basal cisterns are patent. No extra-axial fluid collections. The ventricles are symmetric in size and shape. Brain: No intracranial bleeds or masses. There is cerebral volume loss for age, with resultant ventricular and sulcal prominence. There are periventricular and deep white matter chronic small vessel ischemic changes. There is intracranial internal carotid artery atherosclerosis. Skull and face: Calvarium and visualized facial bones appear intact, without suspicious lesions. Sinuses: Bilateral maxillary sinus mucosal thickening. The mastoids are clear. IMPRESSION: 1. No acute intracranial abnormalities. 2. Cerebral volume loss and chronic microvascular ischemic changes. 3. Bilateral maxillary sinus mucosal thickening. The result was discussed with Dr. Valero in ER prior to dictation. This study fulfills neurological imaging criteria for inclusion or exclusion of acute stroke therapies based on available published neurological guidelines. Dictated by: Stuart Mendiola M.D. on 11/17/2021 at 11:41 Approved by: Stuart Mendiola M.D. on 11/17/2021 at 11:44
--- NOTE | 2021-11-17 11:25 | DI.RAD.S_ITS ---
PROCEDURE: XR CHEST 1V INDICATIONS: Possible stroke TECHNIQUE: One view of the chest was acquired. COMPARISON: None. FINDINGS: Surgical changes and devices: Median sternotomy wires are present and appear intact. Left-sided cardiac pacer device is in place. Lungs and pleura: Lungs are clear. No pleural effusions or pneumothorax. Mediastinum: Mediastinal contours appear normal. Heart size is normal. Bones and chest wall: No suspicious bony lesions. Overlying soft tissues appear unremarkable. IMPRESSION: Chest without acute cardiopulmonary abnormalities or focal airspace disease. Dictated by: Melquiades Julian M.D. on 11/17/2021 at 12:00 Approved by: Melquiades Julian M.D. on 11/17/2021 at 12:00
[2021-11-17 11:41] LABS: Add Manual Diff / Slide Review NO; Basophils Absolute Auto 100 /uL (0-100); Eosinophils Absolute Auto 500 /uL (0-450); Hematocrit 43.1 % (41-53); Hemoglobin 14.5 g/dL (13.5-17.5); Lymphocytes Absolute Auto 1000 /uL (1100-4500); Lymphocytes Percent Auto 16.5 % (25-40); Mean Corpuscular HGB Conc 33.6 % (30-36); Mean Corpuscular Volume 89.5 fL (80-100); Monocytes Absolute Auto 500 /uL (0-900); Monocytes Percent Auto 7.8 % (3-14); Neutrophils Absolute Auto 4200 /uL (1500-7000); Neutrophils Percent Auto 66.7 % (50-75); Platelet Count 212 X10^3/uL (150-400); Red Blood Cell Count 4.82 X10^6/uL (4.5-5.9); Red Cell Distribution Width 13.3 % (11.6-14.8); White Blood Cell Count 6.3 X10^3/uL (4.5-11.0)
[2021-11-17 11:49] LABS: Prothrombin Time 34.4 SECONDS (10.1-12.7)
[2021-11-17 11:51] LABS: PTT Partial Thromboplastin Tim 60 SECONDS (26.4-36.2)
[2021-11-17 11:53] LABS: Alanine Aminotransferase 18 IU/L (<50); Albumin 4.1 g/dL (3.5-5.0); Albumin Globulin Ratio 1.2 (1.0-2.8); Alkaline Phosphatase 83 U/L (38-126); Aspartate Aminotransferase 32 IU/L (17-59); BUN Creatinine Ratio 15.7 (6-22); Blood Urea Nitrogen 18 mg/dL (9-20); Calcium 8.5 mg/dL (8.4-10.2); Carbon Dioxide 29 mmol/L (22-32); Chloride 105 mmol/L (98-107); Creatine Kinase 151 U/L (55-170); Estimated Glomerular Filt Rate > 60 mL/min (>60); Globulin 3.5 g/dL (1.7-4.1); Glucose 121 mg/dL (80-110); HEMOLYSIS 27 (0-50); Potassium 4.3 mmol/L (3.4-5.1); Sodium 139 mmol/L (137-145); Total Protein 7.6 g/dL (6.3-8.2)
--- NOTE | 2021-11-17 11:53 | ED.NEUROSD ---
HPI - Neuro Symptoms/Deficit General Chief Complaint: Neuro Symptoms/Deficit Stated Complaint: Left arm numb/painful, SOB, dizzy Time Seen by Provider: 11/17/21 11:34 Source: patient Mode of arrival: Ambulatory History of Present Illness HPI Narrative: Patient is a 71-year-old male with history of aortic valve replacement on warfarin presenting is today with left leg weakness and difficulty walking along with some left hand numbness. He went to bed normal last night. Woke up at some point to go to the bathroom thought his legs were just stiff. However this morning he just does not feel quite right. He has got some numbness in his left hand and wrist. He is really having some difficulty walking his left leg seems weak. His he says that he has had some mild shortness of breath as well. He has no chest pain or palpitations. On Anticoagulants: Yes (coumadin) Related Data Home Medications Medication Instructions Recorded Confirmed metoprolol succinate 25 mg 25 mg PO DAILY 06/23/20 11/17/21 tablet,extended release 24 hr nitroglycerin 0.3 mg sublingual 0.3 mg sublingual Q5MIN PRN Chest 06/23/20 11/17/21 tablet Pain oxycodone 5 mg tablet 5 mg PO Q8HR PRN Pain (Scale Score 06/23/20 11/17/21 4-6) sacubitril 24 mg-valsartan 26 mg 0.5 tab PO BID 06/23/20 11/17/21 tablet (Entresto) warfarin 1 mg tablet 1 mg PO SEEINSTR 06/23/20 11/17/21 warfarin 1 mg tablet 2 mg PO SEEINSTR 06/23/20 11/17/21 Allergies Allergy/AdvReac Type Severity Reaction Status Date / Time No Known Drug Allergies Allergy Verified 11/17/21 11:19 Review of Systems Review of Systems Narrative: GENERAL: Denies chills, fatigue, malaise, fever, sweats, travel HEENT: Denies sinus pain, ear pain, sore throat, difficulty swallowing, neck pain RESPIRATORY: Denies dyspnea, cough, wheezing, hemoptysis, sputum. CARDIOVASCULAR: Denies chest pain, palpitations, orthopnea, edema GASTROINTESTINAL: Denies nausea, vomiting, abdominal pain, diarrhea, constipation, melena. : Denies dysuria, frequency, incontinence, hematuria, urinary retention, flank pain. MUSCULOSKELETAL: Denies weakness, joint pain, or bony pain SKIN: No rash, no erythema, no pruritus NEUROLOGIC: See HPI PSYCHIATRIC: No concerning psychosocial issues. 12 point review of systems is negative except for those stated above and HPI Hematologic/Lymphatic On Anticoagulants: Yes (coumadin) Patient History Medical History Acute calculous cholecystitis Ascending aortic aneurysm Chronic pain HTN (hypertension) Kidney stones Surgical History AICD (automatic cardioverter/defibrillator) present S/P AVR (aortic valve replacement) and aortoplasty S/P CABG (coronary artery bypass graft) Status post laparoscopic cholecystectomy Family History (Updated 11/17/21 @ 14:41 by Ashvin Muhammad DO) Mother Diabetes mellitus Father Diabetes mellitus Social History household members: spouse and children Smoking Status: Never smoker alcohol intake: current Smoking Status: Never smoker alcohol intake frequency: holidays/special occasions only Substance Use Type: does not use Exam Initial Vital Signs Initial Vital Signs: Vital Signs Temperature 97.7 F 11/17/21 11:15 Pulse Rate 78 11/17/21 11:15 Respiratory Rate 15 11/17/21 11:15 Blood Pressure 141/77 H 11/17/21 11:15 Pulse Oximetry 97 11/17/21 11:15 Oxygen Delivery Method 11/17/21 11:15 GENERAL: Alert pleasant 71-year-old male and in [no acute] distress. HEENT: Head atraumatic,EOMI, pupils reactive, face symmetric, [moist] mucous membranes CARDIOVASCULAR: Regular rate and rhythm without murmurs, rubs or gallops. RESPIRATORY: Breath sounds equal bilaterally, no wheezes rales or rhonchi. ABDOMEN: Soft, nontender. Normoactive bowel sounds all 4 quadrants. No guarding or rebound. EXTREMITIES: Normal range of motion, no clubbing or edema. Neurovascularly intact NEUROLOGICAL: Alert and oriented x4. Left leg it drips to gurney difficulty heel to amaro with left leg. Good [id number] bilaterally some decreased sensation in left arm is. No aphasia or dysarthria no facial droop SKIN: Warm, dry, no laceration, no petechiae, no rashes or lesions. Scores NIH Stroke Scale Level of Conciousness: Alert, keenly responsive Ask month/age: Answers both questions correctly. Open/close eyes, close hand: Performs both tasks correctly Best gaze horizontal: Normal Visual leija: No visual loss Facial palsy: Normal symetrical movement Left arm drift: No drift for full 10 sec Right arm drift: No drift for full 10 sec Left leg drift: Drifts down, not to bed Right leg drift: No drift for full 5 sec Limb ataxia: Present in one limb Sensory on face/arms/legs: Mild to moderate sensory loss, can tell touch Best language: No aphasia, normal Dysarthria: Normal Extinction or inattention: No abnormality Total NIH Stroke scale score: 3 Course Orders Ordered: ED Orders 11/17/21 11:[address] angio head and neck Stat XR chest 1V Stat EKG-12 Lead Stat 11/17/21 11:38 Complete Blood Count AUTO DIFF Stat Comprehensive Metabolic Panel Stat Magnesium Stat Partial Thromboplastin Time Stat Prothrombin Time INR Stat Troponin & CK Cardiac Panel Stat 11/17/21 12:10 COVID19 -Nasal RAPID/Pre-Proc Stat 11/17/21 13:23 Urine Drug Screen, Rapid Stat Acetaminophen (Acetaminophen 325 Mg Tablet) 975 mg PO Q8H PRN PRN Reason: Pain, Mild (1-3) Metoprolol Succinate (Metoprolol Er 25 Mg Tablet) 37.5 mg PO DAILY [facility] Nf - Sacubitril- Valsartan (Entresto) 24-26 Mg Tablet 0.5 tab PO BID [facility] Oxycodone HCl (Oxycodone Ir 5 Mg Tablet) 5 mg PO Q6H PRN PRN Reason: Pain, Moderate (4-6) Last Admin: 11/17/21 16:40 Dose: 5 mg Documented By: JARETH Warfarin Sodium (Warfarin 2 Mg Tablet) 2 mg PO DAILY@1700 [facility] Last Admin: 11/17/21 16:40 Dose: 2 mg Documented By: JARETH Vital Signs Vital signs: Vital Signs - 8 hr 11/17/21 11:48 11/17/21 11:49 11/17/21 11:49 Pulse Rate 74 72 Respiratory Rate 15 19 Blood Pressure 119/62 Pulse Oximetry 96 96 11/17/21 12:00 11/17/21 12:00 07/27/22 12:30 Pulse Rate 77 69 Respiratory Rate 18 Blood Pressure 151/74 H Pulse Oximetry 97 96 11/17/21 12:31 11/17/21 12:31 11/17/21 13:00 Pulse Rate 73 Respiratory Rate 19 Blood Pressure 100/66 102/60 Pulse Oximetry 97 11/17/21 13:00 Pulse Rate 65 Respiratory Rate Blood Pressure Pulse Oximetry 96 MDM - Neuro Symptoms/Deficit Lab Data Result diagrams: 11/17/21 11:38 11/17/21 11:38 Labs: Lab Results 11/17/21 11/17/21 11/17/21 Range/Units 11:38 11:38 11:38 WBC 6.3 (4.5-11.0) X10^3/uL RBC 4.82 (4.5-5.9) X10^6/uL Hgb 14.5 (13.5-17.5) g/dL Hct 43.1 (41-53) % MCV 89.5 (80-100) fL MCH 30.0 (26-34) PG MCHC 33.6 (30-36) % RDW 13.3 (11.6-14.8) % Plt Count 212 (150-400) X10^3/uL Neut % (Auto) 66.7 (50-75) % Lymph % (Auto) 16.5 L (25-40) % [place] % (Auto) 7.8 (3-14) % Eos % (Auto) 8.0 H (2-4) % Baso % (Auto) 1.0 (0-2) % Neut # (Auto) 4200 (4954-2845) /uL Lymph # (Auto) 1000 L (9173-1411) /uL [place] # (Auto) 500 (0-900) /uL Eos # (Auto) 500 H (0-450) /uL Baso # (Auto) 100 (0-100) /uL PT 34.4 H (10.1-12.7) SECONDS INR 3.0 H (0.9-1.3) APTT 60 H (26.4-36.2) SECONDS Sodium 139 (137-145) mmol/L Potassium 4.3 (3.4-5.1) mmol/L Chloride 105 (98-107) mmol/L Carbon Dioxide 29 (22-32) mmol/L BUN 18 (9-20) mg/dL Creatinine 1.15 (0.66-1.25) mg/dL Estimated GFR > 60 (>60) mL/min BUN/Creatinine Ratio 15.7 (6-22) Glucose 121 H (80-110) mg/dL Calcium 8.5 (8.4-10.2) mg/dL Magnesium 2.0 (1.6-2.3) mg/dL Total Bilirubin 1.0 (0.2-1.3) mg/dL AST 32 (17-59) IU/L ALT 18 (<50) IU/L Alkaline Phosphatase 83 (38-126) U/L Total Creatine Kinase 151 (55-170) U/L CK-MB (CK-2) 3.06 H (<2.37) ng/mL CK-MB (CK-2) Rel Index 2.0 (1.5-5.0) % Troponin I < 0.012 (0.01-0.034) ng/mL Total Protein 7.6 (6.3-8.2) g/dL Albumin 4.1 (3.5-5.0) g/dL Globulin 3.5 (1.7-4.1) g/dL Albumin/Globulin Ratio 1.2 (1.0-2.8) SARS-CoV-2 (PCR) (Negative) 11/17/21 Range/Units 12:10 WBC (4.5-11.0) X10^3/uL RBC (4.5-5.9) X10^6/uL Hgb (13.5-17.5) g/dL Hct (41-53) % MCV (80-100) fL MCH (26-34) PG MCHC (30-36) % RDW (11.6-14.8) % Plt Count (150-400) X10^3/uL Neut % (Auto) (50-75) % Lymph % (Auto) (25-40) % [place] % (Auto) (3-14) % Eos % (Auto) (2-4) % Baso % (Auto) (0-2) % Neut # (Auto) (9837-8198) /uL Lymph # (Auto) (9910-7470) /uL [place] # (Auto) (0-900) /uL Eos # (Auto) (0-450) /uL Baso # (Auto) (0-100) /uL PT (10.1-12.7) SECONDS INR (0.9-1.3) APTT (26.4-36.2) SECONDS Sodium (137-145) mmol/L Potassium (3.4-5.1) mmol/L Chloride (98-107) mmol/L Carbon Dioxide (22-32) mmol/L BUN (9-20) mg/dL Creatinine (0.66-1.25) mg/dL Estimated GFR (>60) mL/min BUN/Creatinine Ratio (6-22) Glucose (80-110) mg/dL Calcium (8.4-10.2) mg/dL Magnesium (1.6-2.3) mg/dL Total Bilirubin (0.2-1.3) mg/dL AST (17-59) IU/L ALT (<50) IU/L Alkaline Phosphatase (38-126) U/L Total Creatine Kinase (55-170) U/L CK-MB (CK-2) (<2.37) ng/mL CK-MB (CK-2) Rel Index (1.5-5.0) % Troponin I (0.01-0.034) ng/mL Total Protein (6.3-8.2) g/dL Albumin (3.5-5.0) g/dL Globulin (1.7-4.1) g/dL Albumin/Globulin Ratio (1.0-2.8) SARS-CoV-2 (PCR) Negative (Negative) Imaging Data CT scan - head: Radiologist's Impression: [address] [place] [id number] Scan Report Signed Patient: Luis Mckeon MR#: [id number] : 1950 Acct:[id number] Age/Sex: 71 / M Date of Service: 11/17/21 Loc: ED Accession Number: [id number] ?? Procedure: CT Stroke Ordering Provider: Sarah Valero D.O. PROCEDURE:? CT STROKE ? INDICATIONS:? Positive BE-FAST, Stroke symptoms ? TECHNIQUE:? Noncontrast 4.5 mm thick angled axial sections acquired from the foramen magnum to the vertex, with coronal reformats.? For radiation dose reduction, the following was used:? automated exposure control, adjustment of mA and/or kV according to patient size.? ? COMPARISON:? None. ? FINDINGS:? Image quality:? Excellent.? ? CSF spaces:? Basal cisterns are patent.? No extra-axial fluid collections.? The ventricles are symmetric in size and shape.? ? Brain:? No intracranial bleeds or masses.? There is cerebral volume loss for age, with resultant ventricular and sulcal prominence.? There are periventricular and deep white matter chronic small vessel ischemic changes.? There is intracranial internal carotid artery atherosclerosis.? ? Skull and face:? Calvarium and visualized facial bones appear intact, without suspicious lesions.? ? Sinuses:? Bilateral maxillary sinus mucosal thickening.? The mastoids are clear.? ? IMPRESSION:? ? 1. No acute intracranial abnormalities. 2. Cerebral volume loss and chronic microvascular ischemic changes. 3.? Bilateral maxillary sinus mucosal thickening. ? The result was discussed with Dr. Valero in ER prior to dictation. ? This study fulfills neurological imaging criteria for inclusion or exclusion of acute stroke therapies based on available published neurological guidelines.? ? ? Dictated by: Stuart Mendiola M.D. on 11/17/2021 at 11:41 ?? CTA - brain/neck: Radiologist's Impression: [place] [address] CT Scan Report Signed Patient: Luis Mckeon MR#: [id number] : 1950 Acct:[id number] Age/Sex: 71 / M Date of Service: 11/17/21 Loc: ED Accession Number: [id number] ?? Procedure: CT angio head and neck Ordering Provider: Sarah Valero D.O. PROCEDURE:? CT ANGIO HEAD AND NECK ? INDICATIONS:? Possible stroke ? TECHNIQUE:? Noncontrast images were performed earlier in the day and not repeated.? ? After the administration of intravenous contrast, 1 mm thick sections acquired from the aortic arch through the [place] of Garcia.? Post-contrast 4.5 mm thick sections then re-acquired from the foramen magnum to the vertex.? 3-dimensional fpnfxnx-iyfrjujak-ruarmdajhq (MIP) and/or volume rendering reformats were acquired of the central intracranial vasculature and neck separately. For radiation dose reduction, the following was used:? automated exposure control, adjustment of mA and/or kV according to patient size.? ? COMPARISON:? [facility], CR, XR CHEST 1V, 11/17/2021, 11:37.? [facility], CT, CT STROKE, 11/17/2021, 11:30. ? FINDINGS:? Image quality:? Limited by bolus timing, with venous contamination. ? BRAIN:? CSF spaces:? Ventricles are normal in size and shape.? Basal cisterns are patent.? No extra-axial fluid collections.? ? Brain:? No midline shift.? No intracranial bleeds or masses.? Chen-white matter interface appears intact.? ? Skull and face:? Calvarium and facial bones appear intact, without suspicious lesions.? Orbits appear normal.? ? Sinuses:? Mild paranasal sinus disease is seen. No abnormal fluid is seen within the mastoid air cells. ? ? HEAD CT ANGIOGRAPHY:? Anterior circulation:? Intracranial internal carotid arteries are normal in size and flow.? The flow within the paired anterior cerebral arteries is normal and symmetric.? The flow within the middle cerebral arteries is normal and symmetric.? The anterior communicating artery is seen.? No aneurysms are seen.? ? Posterior circulation:? Visualized portions of the vertebral arteries demonstrate normal caliber, and join to form a normal appearing basilar artery.? Flow within the posterior cerebral arteries is normal and symmetric.? No aneurysms are seen.? ? NECK CT ANGIOGRAPHY:? Carotid system:? Incidental note is made of a common origin of the right brachiocephalic artery and the left common carotid artery (bovine type arch). This is considered to be a developmental variant of no clinical consequence. ? The origins of the common carotid arteries appear patent.? The common carotid arteries demonstrate normal caliber and courses.? The bifurcation regions are both widely patent.? The internal carotid arteries demonstrate normal calibers and courses.? ? Posterior circulation:? The origins of the vertebral arteries both appear widely patent.? The more superior extracranial portions of both vertebral arteries also demonstrate normal courses and calibers.? They join to form a normal appearing basilar artery.? ? Soft tissues:? Visualized neck soft tissues demonstrate no suspicious abnormalities.? Left-sided pacer leads are seen ? Bones:? No suspicious bony lesions.? Visualized cervical spine appears normally aligned.? Moderate cervical spine degenerative change can be seen.? Sternotomy wires are partially seen. ? ? IMPRESSION:? No significant intracranial arterial abnormality is seen.? ? Within the arteries of the neck, no hemodynamically significant stenosis can be seen. ? Incidental note is made of: Moderate cervical spine degenerative change Bovine type aortic branching pattern Left-sided pacer leads Sternotomy wires ? Any quantitative measurements of stenosis were performed using NASCET criteria.? ? ? Dictated by: Rosalio Mares M.D. on 11/17/2021 at 10:56 ? ? Chest x-ray: Radiologist's Impression: [address] [address] XRay Report Signed Patient: Luis Mckeon MR#: [id number] : 1950 Acct:[id number] Age/Sex: 71 / M Date of Service: 11/17/21 Loc: ED Accession Number: [id number] ?? Procedure: XR chest 1V Ordering Provider: Sarah Valero D.O. PROCEDURE:? XR CHEST 1V ? INDICATIONS:? Possible stroke ? TECHNIQUE:? One view of the chest was acquired.? ? COMPARISON:? None. ? FINDINGS:? ? Surgical changes and devices:? Median sternotomy wires are present and appear intact. Left-sided cardiac pacer device is in place.? ? Lungs and pleura:? Lungs are clear.? No pleural effusions or pneumothorax.? ? Mediastinum:? Mediastinal contours appear normal.? Heart size is normal.? ? Bones and chest wall:? No suspicious bony lesions.? Overlying soft tissues appear unremarkable.? ? IMPRESSION:? Chest without acute cardiopulmonary abnormalities or focal airspace disease. ? ? Dictated by: Melquiades Julian M.D. on 11/17/2021 at 12:00 ? ? ECG Data Interpretation: Sinus rhythm rate 75 [place] interval 114 QRS [address] changes MDM Narrative Medical decision making narrative: Patient's symptoms are concerning for stroke he is certainly not a tPA candidate he is out of the window an on warfarin. He has significant left leg weakness. Imaging is negative. He is not an MRI candidate due to his aortic valve an AICD. Dr. Muhammad accepts patient Discharge Plan Departure Patient Disposition: Admitted As Inpatient Clinical Impression: Cerebrovascular accident Admit Date/Time: 11/17/21 13:04 Admit Provider: Ashvin Muhammad
[2021-11-17 12:05] LABS: Troponin I < 0.012 ng/mL (0.01-0.034)
[2021-11-17 12:08] LABS: Creatine Kinase MB 3.06 ng/mL (<2.37)
--- NOTE | 2021-11-17 12:22 | PC.NURSE ---
Reports waking up with left leg weakness and numbness/tingling in forearm down into hands/fingers.
[2021-11-17 12:29] LABS: COVID19 -Nasal RAPID Negative (Negative)
--- NOTE | 2021-11-17 13:36 | PC.NURSE ---
Pt reports some mild dizziness upon standing to use urinal.
[2021-11-17 13:45] LABS: UR Morphine/Opiate cutoff 300 Negative (Negative); Ur Creatinine Normal (Normal); Ur Specific Gravity Normal (Normal); Urine Amphetamines Negative (Negative); Urine Barbiturates Negative (Negative); Urine Benzodiazepines Negative (Negative); Urine Cocaine Negative (Negative); Urine MDMA Negative (Negative); Urine Methadone Negative (Negative); Urine Methamphetamines Negative (Negative); Urine Oxycodone Positive (Negative); Urine Phencyclidine Negative (Negative); Urine Tetrahydrocannabinol Negative (Negative); Urine Tricyclic Antidepressant Negative (Negative); Urine pH Normal (Normal)
--- NOTE | 2021-11-17 14:16 | PC.NURSE ---
Day shift: Pt in AC room from ED at approx 1410. Dr Muhammad and dial lathe operator Kayla in room at this time.
--- NOTE | 2021-11-17 14:40 | PM.HP.1 ---
History of Present Illness History of Present Illness Date Patient Seen: 11/17/21 Time Patient Seen: 14:30 Chief complaint: Left arm numb/painful, SOB, dizzy Narrative: This is a 71-year-old male with a past medical history of aortic valve replacement with mechanical valve on Coumadin, congenital heart disease, heart failure with reduced ejection fraction (due to valvular disease, most recently normal), hypertension, chronic low back pain, paroxysmal atrial flutter, AICD placement who came to the emergency room with left-sided weakness and numbness. The patient states that he woke up this morning with left leg weakness and some left hand weakness but predominantly numbness. His last known normal was when he went to bed yesterday evening. He states over the past month or so he has had a couple episodes chest pain requiring nitro, but none recently eyes any palpitations, shock. He does endorse some lower extremity swelling, though that is quite mild intermittent mild shortness of breath. He denies orthopnea, fever, chills, abdominal pain, nausea, vomiting, dysuria, or urinary frequency. Spouse at bedside did not notice See room, his vital signs were unremarkable, laboratory evaluation revealed an unremarkable CBC, INR was within therapeutic limits at 3.0, chemistries were also unremarkable and troponin was negative. Urine drug screen was positive for oxycodone which the patient chronically takes for back pain. COVID-[address] noncontrast of his head showed no hemorrhage. CT angiogram of his head and neck showed no significant vessel disease. Patient was admitted for further management of presumed stroke. Patient History Medical History Acute calculous cholecystitis Ascending aortic aneurysm Chronic pain HTN (hypertension) Kidney stones Surgical History AICD (automatic cardioverter/defibrillator) present S/P AVR (aortic valve replacement) and aortoplasty S/P CABG (coronary artery bypass graft) Status post laparoscopic cholecystectomy Family & Social History Family History (Updated 11/17/21 @ 14:41 by Ashvin Muhammad DO) Mother Diabetes mellitus Father Diabetes mellitus Social History: household members spouse,children Safety & Behavioral: Feels Safe in Current Yes Environment Been Physically Hurt or No Threatened By a Person Tobacco & Substance use: Smoking Status Former smoker, approx 10 PY history. alcohol intake current alcohol intake frequency holiday/special occasion Substance Use Type does not use Meds Home Medications and Allergies Home Medications Medication Instructions Recorded Confirmed Type metoprolol succinate 25 mg 25 mg PO DAILY 06/23/20 11/17/21 History tablet,extended release 24 hr nitroglycerin 0.3 mg sublingual 0.3 mg sublingual Q5MIN PRN Chest 06/23/20 11/17/21 History tablet Pain oxycodone 5 mg tablet 5 mg PO Q8HR PRN Pain (Scale Score 06/23/20 11/17/21 History 4-6) sacubitril 24 mg-valsartan 26 mg 0.5 tab PO BID 06/23/20 11/17/21 History tablet (Entresto) warfarin 1 mg tablet 1 mg PO SEEINSTR 06/23/20 11/17/21 History warfarin 1 mg tablet 2 mg PO SEEINSTR 06/23/20 11/17/21 History Allergies Allergy/AdvReac Type Severity Reaction Status Date / Time No Known Drug Allergies Allergy Verified 11/17/21 11:19 Review of Systems Review of Systems Narrative: All other systems reviewed with the patient and are negative unless otherwise stated. Exam Vital Signs (past 8 hours): - 11/17/21 11:15 11/17/21 11:48 11/17/21 11:49 Temperature 97.7 F Pulse Rate 78 74 Respiratory Rate 15 15 Blood Pressure 141/77 H 119/62 Pulse Oximetry 97 96 Oxygen Delivery Method Room Air 11/17/21 11:49 11/17/21 12:00 11/17/21 12:00 Temperature Pulse Rate 72 77 Respiratory Rate 19 18 Blood Pressure 151/74 H Pulse Oximetry 96 97 Oxygen Delivery Method 11/17/21 12:30 11/17/21 12:31 11/17/21 12:31 Temperature Pulse Rate 69 73 Respiratory Rate 19 Blood Pressure 100/66 Pulse Oximetry 96 97 Oxygen Delivery Method 11/17/21 13:00 11/17/21 13:00 Temperature Pulse Rate 65 Respiratory Rate Blood Pressure 102/60 Pulse Oximetry 96 Oxygen Delivery Method Oxygen Delivery Method Room Air Narrative Exam Narrative: General:? Patient is well developed and well nourished, in no distress at this time. HEENT:? Normocephalic, atraumatic, extraocular muscles intact, oral pharynx is clear and mucous membranes are moist. Neck: supple and symmetric, trachea is midline, no cervical adenopathy. Negative for JVD Chest:? Normal AP diameter and contour without kyphoscoliosis, no tachypnea, equal chest rise bilaterally. Lungs:? CTA b/l no wheezing rhonchi or rales. Cardio:?RRR no m/r/g. Abdomen: S NT ND. No CVA tenderness. Musculoskeletal:? Muscle strength and tone are equal within normal limits, no deformity. Extremities: No edema or joint effusions. No cyanosis or clubbing. Skin:? Pale,? Warm to touch,dry and intact without rashes, ulcerations or petechiae.? Neuro:? Alert and orientated x3,? decreased sensation bilateral lower feet, chronic, with new decreased sensation in L hand and foot. L leg and hand weakness compared to R, though approx 4+/5. unable to do heel to amaro. rapid alternating movements slowed and irregular on the L. + facial asymmetry with slight droop on the L. Psych:? Patient has a well-kept appearance, appropriate affect, mental status attitude thought context and judgment are appropriate for age. Objective ECG Impression: Normal sinus rhythm Nonspecific T wave abnormality Artifact in inferior leads No prior tracings As interpreted by me Labs Result Diagrams: 11/17/21 11:38 11/17/21 11:38 Labs: Laboratory Results - last 24 hr 11/17/21 11/17/21 11/17/21 11:38 11:38 11:38 WBC 6.3 RBC 4.82 Hgb 14.5 Hct 43.1 MCV 89.5 MCH 30.0 MCHC 33.6 RDW 13.3 Plt Count 212 Neut % (Auto) 66.7 Lymph % (Auto) 16.5 L Stafford % (Auto) 7.8 Eos % (Auto) 8.0 H Baso % (Auto) 1.0 Neut # (Auto) 4200 Lymph # (Auto) 1000 L Stafford # (Auto) 500 Eos # (Auto) 500 H Baso # (Auto) 100 PT 34.4 H INR 3.0 H APTT 60 H Sodium 139 Potassium 4.3 Chloride 105 Carbon Dioxide 29 BUN 18 Creatinine 1.15 Estimated GFR > 60 BUN/Creatinine Ratio 15.7 Glucose 121 H Calcium 8.5 Magnesium 2.0 Total Bilirubin 1.0 AST 32 ALT 18 Alkaline Phosphatase 83 Total Creatine Kinase 151 CK-MB (CK-2) 3.06 H CK-MB (CK-2) Rel Index 2.0 Troponin I < 0.012 Total Protein 7.6 Albumin 4.1 Globulin 3.5 Albumin/Globulin Ratio 1.2 U Opiates 300ng/mL cut Ur Oxycodone Screen Urine Methadone Screen Ur Barbiturates Screen U Tricyclic Antidepress Ur Phencyclidine Scrn Ur Amphetamines Screen U Methamphetamines Scrn Ur MDMA Scrn (Ecstasy) U Benzodiazepines Scrn Urine Cocaine Screen U Marijuana (THC) Screen SARS-CoV-2 (PCR) 11/17/21 11/17/21 12:10 13:23 WBC RBC Hgb Hct MCV MCH MCHC RDW Plt Count Neut % (Auto) Lymph % (Auto) Stafford % (Auto) Eos % (Auto) Baso % (Auto) Neut # (Auto) Lymph # (Auto) Stafford # (Auto) Eos # (Auto) Baso # (Auto) PT INR APTT Sodium Potassium Chloride Carbon Dioxide BUN Creatinine Estimated GFR BUN/Creatinine Ratio Glucose Calcium Magnesium Total Bilirubin AST ALT Alkaline Phosphatase Total Creatine Kinase CK-MB (CK-2) CK-MB (CK-2) Rel Index Troponin I Total Protein Albumin Globulin Albumin/Globulin Ratio U Opiates 300ng/mL cut Negative Ur Oxycodone Screen Positive H Urine Methadone Screen Negative Ur Barbiturates Screen Negative U Tricyclic Antidepress Negative Ur Phencyclidine Scrn Negative Ur Amphetamines Screen Negative U Methamphetamines Scrn Negative Ur MDMA Scrn (Ecstasy) Negative U Benzodiazepines Scrn Negative Urine Cocaine Screen Negative U Marijuana (THC) Screen Negative SARS-CoV-2 (PCR) Negative Assessment & Plan Assessment & Plan narrative: This is a 71-year-old male with a past medical history of aortic valve replacement with mechanical valve on Coumadin, congenital heart disease, heart failure with reduced ejection fraction (due to valvular disease, most recently normal), hypertension, chronic low back pain, paroxysmal atrial flutter, AICD placement who came to the emergency room with left-sided weakness and numbness. Admitted for an acute CVA. 1. 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 Follow NIH qshift for now. - will check TTE - continue coumadin, INR therapeutic at 3.0. - unable to do MRI with prior aortic valve and AICD. though symptoms are consistent with CVA. - CT head unremarkable, CT angio without significant vascular disease further indicating embolic etiology. - start PT / OT - resume entresto in the AM, continue home metoprolol. 2. paroxysmal atrial flutter, history of aortic valve replacement - continue coumadin. 3. CHFrEF - continue home entresto and metoprolol. - appears euvolemic currently, some mild dyspnea, will repeat TTE. No need for diuresis. Most recent TTE in records with EF 50-55%. 4. HTN, chronic - continue home medications as noted above. 5. Chronic back pain - continue home oxycodone. Code: Full, surrogate decision maker is his spouse Dispo: Patient is admitted under inpatient status as his stay is expected to exceed 2 midnights DVT: On Coumadin I have utilized all available immediate resources to obtain, update, or review the patient's current medications. COVID-19 COVID-19 status: Negative Time Spent With Patient Critical Care time: I spent a total of [] minutes of critical care time on this patient's care today; this time is exclusive of procedural time. Scores NIHSS Level of Conciousness: Alert, keenly responsive Ask month/age: Answers both questions correctly. Open/close eyes, close hand: Performs both tasks correctly Best gaze horizontal: Normal Visual leija: No visual loss Facial palsy: Minor paralysis, flattened nasolabial fold, asymmetry on smiling Left arm drift: No drift for full 10 sec Quality Stroke Contraindication Not Initiating IV-Tpa: Contraindicated
--- NOTE | 2021-11-17 14:45 | DI.ECHO.S_ITS ---
[facility]---------+ [facility] +---------+ : : [address] [place] : : : : [id number] : : : : Phone: [phone]+ Echocardiogram Report + + :Name: AWILDA NORWOOD Study Date: 11/17/2021 Height: 64 in : :[facility] ReadingLocation: Weight: 164 lb : : Gender: Male BSA: 1.8 m2 : :: 1950 Age: 71 yrs BP: 100/66 mmHg: :Reason For Study: CVA, HX OF AVR, CHF : :Ordering Physician: URIAH, : :KINGSLEY CLEMONS Performed By: Nina Gaspar : :Referring: KINGSLEY KRUSE : + + Interpretation Summary The left ventricle is normal in size and wall thickness. The ejection fraction is estimated to be 50-55%. There has been no significant change in LVEF since the previous exam. The right ventricle is mildly dilated. There is a pacemaker lead in the right ventricle. Right ventricular systolic function is mildly reduced. There has been no significant change since the previous study. There is a mechanical aortic valve.The prosthetic aortic valve is well-seated. There is mild intravalvular regurgitation through the prosthetic aortic valve. There is mild perivalvular regurgitation around the prosthetic aortic valve. There has been no significant change since the previous study. The peak aortic velocity is 1.9 m/sec. The aortic valve mean gradient is 9 mmHg. The peak aortic velocity on the previous exam was 1.7 m/sec. There is moderate to severe tricuspid regurgitation. Compared to the prior echo exam, there has been an increase in TR severity. The right ventricular systolic pressure is estimated to be at least 32 mmHg based on an estimated right atrial pressure of 3 mm Hg. Injection of contrast documented no interatrial shunt. Mild atherosclerotic plaque(s) in the aortic arch. Procedure: A two-dimensional transthoracic echocardiogram with color flow and Doppler was performed. The study quality was technically adequate. Comparison is made with the echocardiogram of 01/21/2019. The patient was in sinus rhythm with heart rates between 66-77 bpm during the exam. The patient had frequent PVCs during the exam. Left Ventricle: The left ventricle is normal in size and wall thickness. There is no thrombus. The ejection fraction is estimated to be 50-55%. There has been no significant change since the previous exam. There is a basal inferior wall and basal inferior septum hypokinesis. There is a mild dyssynchronous contraction pattern, consistent with a conduction abnormality. MV E/A: 1.6 Med Peak E' Abilio: 6.7 cm/sec E/E' med: 9.5. Right Ventricle: There is a pacemaker lead in the right ventricle. The right ventricle is mildly dilated. Right ventricular systolic function is mildly reduced. There has been no significant change since the previous study. Atria: The left atrium is mildly dilated. The right atrium is moderate to severely dilated. There is a catheter/pacemaker lead seen in the right atrium. The right atrium has mildly increased in size since the prior echo exam. There is no Doppler evidence for an interatrial shunt. Injection of contrast documented no interatrial shunt. Mitral Valve: There is mild mitral annular calcification. There is systolic anterior motion of the chordal apparatus. Redundant elongated chordae are noted. No significant mitral valve stenosis. There is mild mitral regurgitation. Aortic Valve: There is a mechanical aortic valve. There is mild intravalvular regurgitation through the prosthetic aortic valve. There is mild perivalvular regurgitation around the prosthetic aortic valve. There has been no significant change since the previous study. The prosthetic aortic valve is well-seated. The peak aortic velocity is 1.9 m/sec. The aortic valve mean gradient is 9 mmHg. The calculated aortic valve area is 1.5 cm2. The peak aortic velocity on the previous exam was 1.7 m/sec. Tricuspid Valve: The tricuspid valve leaflets are thin and pliable. The tricuspid annulus is dilated. There is moderate to severe tricuspid regurgitation. The right ventricular systolic pressure is estimated to be at least 32 mmHg based on an estimated right atrial pressure of 3 mm Hg. Compared to the prior echo exam, there has been an increase in TR severity. Pulmonic Valve: The pulmonic valve is not well visualized. There is trace pulmonic regurgitation. Great Vessels: The aortic root is not well visualized but is probably normal size. The dimensions of the ascending aorta are normal. Mild atherosclerotic plaque(s) in the aortic arch. The IVC is of normal diameter and collapses greater than 50% with a sniff. This suggests a low right atrial pressure of 3 mm Hg. Pericardium/ Pleura There is no pericardial effusion. There is no pleural effusion. MMode/2D Measurements & Calculations LVIDd: 4.7 cm LVOT diam: 2.0 cm LVIDs: 3.7 cm asc Aorta Diam: 2.6 cm FS: 22.5 % Ao Arch Diam (Prox Trans): 2.0 cm IVSd: 0.75 cm LVPWd: 0.74 cm LV cortez. diameter/BSA (cm/m^2): 2.6 LV sys. diameter/BSA (cm/m^2): 2.0 LA A2 area: 21.5 cm2 RA long axis: 5.8 cm LA A4 area: 22.3 cm2 RA area: 23.0 cm2 LA length (vol): 6.6 cm RA vol: 78.0 ml LA vol: 61.5 ml RA : 43.4 ml/m2 LA vol index: 34.2 ml/m2 IVC diam: 1.2 cm RVD1 (basal): 4.7 cm RVD2 (mid): 3.8 cm TAPSE: 1.5 cm Doppler Measurements & Calculations Ao V2 max: 198.0 cm/sec LVOT Max Abilio: 95.1 cm/sec Ao V2 mean: 130.7 cm/sec LV V1 max P.6 mmHg Ao max P.1 mmHg LV V1 VTI: 20.6 cm Ao mean P.9 mmHg JORJE(I,D): 1.6 cm2 Ao V2 VTI: 41.5 cm JORJE(V,D): 1.5 cm2 sev ratio: 0.50 JORJE indexed to BSA (cm^2/m^2): 0.87 MV E max abilio: 63.6 cm/sec TR max abilio: 271.0 cm/sec MV A max abilio: 38.9 cm/sec TR max P.4 mmHg MV E/A: 1.6 PA V2 max: 73.1 cm/sec Med Peak E' Abilio: 6.7 cm/sec PA V2 mean: 49.4 cm/sec E/E' med: 9.5 PA mean P.1 mmHg Lat Peak E' Abilio: 10.2 cm/sec PA pr(Accel): 12.2 mmHg E/E' lat: 6.3 E/e' average: 7.9 MV dec time: 0.20 sec SV(LVOT): 65.2 ml Reading Physician:05:45 PM
[2021-11-17] MEDS: OXYCODONE IR 5 MG TABLET PO ×2 (16:40→22:04)
[2021-11-17] MEDS: WARFARIN 2 MG TABLET PO (16:40)
[2021-11-18] VITALS (8 sets, daily range): BP systolic 96–120; BP diastolic 60–66; PULSE 60–67; RESP 14–18; TEMP 36.3–36.8; O2SAT 96–99
[2021-11-18] MEDS: OXYCODONE IR 5 MG TABLET PO ×3 (06:44→22:31)
[2021-11-18] MEDS: ACETAMINOPHEN 325 MG TABLET 975 MG PO (06:44)
[2021-11-18 06:48] LABS: Add Manual Diff / Slide Review NO; Basophils Absolute Auto 100 /uL (0-100); Basophils Percent Auto 1.5 % (0-2); Eosinophils Absolute Auto 600 /uL (0-450); Eosinophils Percent Auto 11.4 % (2-4); Hematocrit 38.8 % (41-53); Hemoglobin 13.2 g/dL (13.5-17.5); Lymphocytes Absolute Auto 1500 /uL (1100-4500); Lymphocytes Percent Auto 29.1 % (25-40); Mean Corpuscular HGB Conc 34.1 % (30-36); Mean Corpuscular Hemoglobin 30.6 PG (26-34); Mean Corpuscular Volume 89.5 fL (80-100); Monocytes Absolute Auto 600 /uL (0-900); Monocytes Percent Auto 10.6 % (3-14); Neutrophils Absolute Auto 2500 /uL (1500-7000); Neutrophils Percent Auto 47.4 % (50-75); Platelet Count 189 X10^3/uL (150-400); Red Blood Cell Count 4.34 X10^6/uL (4.5-5.9); Red Cell Distribution Width 13.5 % (11.6-14.8); White Blood Cell Count 5.3 X10^3/uL (4.5-11.0)
[2021-11-18 07:08] LABS: BUN Creatinine Ratio 16.5 (6-22); Blood Urea Nitrogen 19 mg/dL (9-20); Calcium 8.4 mg/dL (8.4-10.2); Carbon Dioxide 30 mmol/L (22-32); Chloride 104 mmol/L (98-107); Estimated Glomerular Filt Rate > 60 mL/min (>60); Glucose 108 mg/dL (80-110); HEMOLYSIS < 15 (0-50); Magnesium 1.8 mg/dL (1.6-2.3); Potassium 4.2 mmol/L (3.4-5.1); Sodium 138 mmol/L (137-145)
--- NOTE | 2021-11-18 09:26 | PC.NURSE ---
Addendum entered by Isabelle Barcenas R.N. 11/18/21 13:19: Patient is a sba with walker to use the bathroom. He denies pain and is comfortable up in the chair. Original Note: Assess- Patient is alert and oriented x4, he does have some weakness in his left leg, it does drift down after about 5 seconds but does not touch the bed. His NIH stroke scale is a 1. He denies pain, patient has a mechanical heart valve, and an aicd. Denies discomfort and comfortable.
[2021-11-18] MEDS: METOPROLOL ER 25 MG TABLET 37.5 MG PO (09:32)
--- NOTE | 2021-11-18 09:50 | PT.IIE ---
Current Diagnoses Cerebral infarction, unspecified (11/17/21) Surgical History (Last Reviewed 11/17/21 @ 14:41 by Ashvin Muhammad DO) AICD (automatic cardioverter/defibrillator) present S/P AVR (aortic valve replacement) and aortoplasty S/P CABG (coronary artery bypass graft) Status post laparoscopic cholecystectomy Medical History (Last Reviewed 11/17/21 @ 14:41 by Ashvin Muhammad DO) Acute calculous cholecystitis Ascending aortic aneurysm Chronic pain HTN (hypertension) Kidney stones Physical Therapy Inpatient Evaluation/Re-Eval M1 PT/OT-IP Prior Functional Status Start: 11/18/21 13:21 Freq: NEEDED Status: Active Protocol: Document 11/18/21 09:50 AB (Rec: 11/18/21 13:36 AB [facility]) Medical Review Prior Functional Status Medical History Reviewed Yes Communication able to make needs known Mobility and Gait pt stated that he is independent with all mobilities and ambulation without AD but occasionally uses a SPC depending on back pain Social History Household Members spouse Living Arrangements Apartment/Condo Number of Floors (Floors) One Floor Number of Stairs To Enter/Railing? 2 stteps to enter with L rail Home Environment Standard Height Toilet,Tub/ Shower Home Equipment Front Wheel Walker,Straight Cane,Tub Transfer Bench,Hand Held Shower M2 PT-IP Current Condition Start: 11/18/21 13:21 Freq: NEEDED Status: Active Protocol: Document 11/18/21 09:50 AB (Rec: 11/18/21 13:36 AB [facility]) Physical Therapy Current Condition Current Condition Evaluation Date 11/18/21 Treatment Diagnosis CVA; difficulty in walking Onset Date 11/17/21 M3 PT-IP Subjective Start: 11/18/21 13:21 Freq: NEEDED Status: Active Protocol: Document 11/18/21 09:50 AB (Rec: 11/18/21 13:36 AB [id number]) Subjective Physical Therapy Visit Type Type Initial Evaluation Visit Start Time 09:50 Visit Stop Time 10:25 Total Visit Minutes 30 Number of NETBACKUP ENGINEER Visits 0 Physical Therapy Visit Comments Patient Comments agreeable to do PT M4 PT-IP Mobility and Gait Start: 11/18/21 13:21 Freq: NEEDED Status: Active Protocol: Document 11/18/21 09:50 AB (Rec: 11/18/21 13:36 AB [id number]) PT-Bed Mobility Assessment Supine to Sit Supine to Sit Standby Assistance Sit to Supine Sit to Supine Standby Assistance PT-Transfer Assessment Sit to and From Stand Sit to and from Stand Standby Assistance Equipment Transfer Assistive Device None,Gait Belt,Front Wheeled Walker Orthotic/Prosthetic Devices or Brace: No Transfers Transfer Destination Chair,Toilet Transfer Technique ambulated Transfer Ability Level of Assist Standby Assistance,1 Person Assistance,Use of Upper Extremities Comments Mobility Comments pt completed supine to sit SBA . completed sit to stand SBA and ambulated in room ~ 30 ft using FWW SBA. pt sat on chair. completed sit to stand from chair SBA and ambulated in room without AD SBA. unsteady antalgic gait but without LOB. pt requested to use the toilet and ambulated to the toilet without AD SBA. able to complete toileting needs without assistance. ambulated to the sink without AD SBA and able to maintain standing balance while doing handwashing sBA. ambulated in the hallway using FWW SBA. completed up/down steps x 2 sets SBA and cues. pt ambulated back to his room sBA without AD. agreed to sit up on the chair and positioned . call light and table placed within reach. Gait Assessment Gait Gait Assistance Required: Standby Assistance Distance (Feet) 125 Able to Maintain Weight Bearing Status Yes During Gait Assistive Devices Assistive Device Gait Belt,Front Wheeled Walker Orthotic/Prosthetic Devices or Brace: No Gait Deviations General Gait Pattern Antalgic,Decreased Stride Length,Decreased Feet Clearance Factors Limiting Gait Function Factors Limiting Gait Function Decreased Activity Tolerance, Decreased Strength,Pain,Poor Safety Awareness Stair Climbing Assessment Evaluation Level of Assist On Stairs Standby Assistance Devices Stair Climbing Assistive Devices Left Railing Technique/Endurance Stair Climbing Direction Ascend and Descend Stair Climbing Technique Step to Step Number of Steps Climbed 3 Query Text: Stair Climbing Set # Repetitions (reps) 2 PT-Balance Assessment Sitting Balance and Reactions Static Sitting Balance Ability Normal Dynamic Sitting Balance Ability Good Standing Balance and Reactions Static Standing Balance Ability Good Dynamic Standing Balance Ability Fair Device Used without AD M5 PT-IP Objective Assessments Start: 11/18/21 13:21 Freq: NEEDED Status: Active Protocol: Document 11/18/21 09:50 AB (Rec: 11/18/21 13:36 AB [email or web address]) Orientation Orientation/Cognition Level of Alertness Alert Orientation Name,Place,Situation Language Function Ability No Deficits Noted Safety Awareness Decreased Safety Awareness Gross Range of Motion Lower Extremity ROM Assessment Within Functional Limits Strength Lower Extremity Strength Assessment Left Impaired Comments Strength Comments RLE: 4/5 LLE: 4-/5 Sensation Assessment Sensation Gross Sensation Left UE Impaired,Left LE Impaired Sensation Description Numbness Comments Sensation Comments c/o slight numbness on L hand/ fingers and L foot Muscle Tone Muscle Tone WNL Yes M6 PT-IP Treatment Start: 11/18/21 13:21 Freq: NEEDED Status: Active Protocol: Document 11/18/21 09:50 AB (Rec: 11/18/21 13:36 AB [id number]) Physical Therapy Treatment Education Education Provided Safety M7 PT-IP Assessment and Plan Start: 11/18/21 13:21 Freq: NEEDED Status: Active Protocol: Document 11/18/21 09:50 AB (Rec: 11/18/21 13:36 AB [id number]) PT Summary Assessment and Plan Potential Rehabilitation Potential Fair Status of Condition at Evaluation Stable Summary Impairments Pain,ROM,Strength,Balance, Coordination,Sensation,Tone, Cognition,Bed Mobility, Transfers,Gait,Activity Tolerance Assessment Summary pt requiring SBA with mobility without AD. pt plans to go home and spouse to assist him if needed. pt presents with unsteady gait but without LOB. pt may go home when medically stable. Goals Bed Mobility Goal Independent Transfer Goal Independent Gait Goal Independent Gait Distance 250 Other Goals up/down 2 steps L rail mod I Days to Meet Goals 5 Frequency of Treatment Frequency Of Treatment Once a Day Treatment Plan Physical Therapy Treatment Plan Bed Mobility Training,Transfer Training,Gait Training, Therapeutic Exercise,Balance Retraining,Discharge Planning, Hot or Cold Pack,Neuromuscular Re-ed,Coordination Retraining ,Manual Therapy Recommendations To Nursing Amount of Assist Needed Standby Assistance Discharge Recommendations PT Discharge Recommendations Home with Assistance, Outpatient PT Transportation Needs at Discharge Private Vehicle
--- NOTE | 2021-11-18 12:31 | CM.DANOTE ---
DCP: Case received, EMR reviewed and met with patient. Introduced self and role. Was able to obtain information regarding patient's baseline activity level prior to hospitalization. DCP assessment completed with information currently available. Patient is a 71 year old male who admitted yesterday afternoon to the care of the hospitalist team. DCP: Dr. Dc. Payer: confirmed: Medicare/[employer]. Patient came to the hospital via private vehicle secondary to having left leg weakness and difficulty walking. Patient was also complaining of hand numbness. He had also been complaining of shortness of breath. Patient has history of cardiac issues, which include aortic valve replacement, congenital heart disease, heart failure with decreased ejection fraction, and atrial flutter. Patient has an AICD. He is unable to have MRI secondary to valve replacement and AICE. 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 Met with patient in his room. He is alert and oriented, pleasant. He was sitting up in bed. Confirmed that he resides here in [place] with his spouse, Ashley. At his baseline, he is independent. He still drives. He stated, he just had the feeling that his hand fall asleep, and felt strange, which is why he came to the hospital. Discussed patient during team rounds. Hospitalist indicated that acute inpatient rehab may benefit patient. He does have P.T, and O.T orders which are pending. Called [facility] rehab and spoke to Dahlia. Confirmed that she has a couple of beds available. Let her know that therapy has not yet worked with patient. She stated to go ahead and send the referral, and can send notes from therapy when they are completed. P: DCP to continue to follow. Having Selene fax initial referral to [facility] acute rehab. Will see how patient does with the therapy team. Yarelis Dobbs RN/[place] Discharge Planning/Care Management Advanced directive, confirm from FAMILY Start: 11/17/21 18:31 Freq: Q24H Status: Active Protocol: Document 11/17/21 18:31 YAD (Rec: 11/17/21 18:31 YAD [id number]) Advance Directive, confirm on record Time 18:31 Person contacted Pt Copy received No CM Discharge Assessment Start: 11/18/21 12:28 Freq: Status: Active Protocol: Document 11/18/21 12:28 (Rec: 11/18/21 12:30 [id number]) Discharge Planning Assessment Assigned Machine Joint Cutter Yarelis Dobbs RN/[place] Advance Directives? No Advance Directives on File No History Provided By Patient,Medical Record Prior Living Arrangements Apartment/Condo Household Members spouse,children Type of transporation used prior to Drives own vehicle admit Independent with ADL's Yes Is patient alert and oriented? Yes Caregiver for Another No Comment Patient may benefit with acute inpatient rehab. Barriers to Discharge No Discharge Plan Inpatient Rehab Unit Transportation Arrangement Spouse Referrals Initiated Other Additional Comment Sending initial referral to Inpatient Acute Care Inpatient Rehab in [facility] Whiteboard Updated in Patient Room with Yes name and ext. # of Machine Joint Cutter Review Status In Process Next Review Type Continued Stay Review
--- NOTE | 2021-11-18 15:00 | OT.IP.EVAL ---
Current Diagnoses Cerebral infarction, unspecified (11/17/21) Past Medical History (Last Reviewed 11/17/21 @ 14:41 by Ashvin Muhammad DO) Acute calculous cholecystitis Ascending aortic aneurysm Chronic pain HTN (hypertension) Kidney stones Surgical History (Last Reviewed 11/17/21 @ 14:41 by Ashvin Muhammad DO) AICD (automatic cardioverter/defibrillator) present S/P AVR (aortic valve replacement) and aortoplasty S/P CABG (coronary artery bypass graft) Status post laparoscopic cholecystectomy Occupational Therapy Inpatient Evaluation/Re-Eval M1 PT/OT-IP Prior Functional Status Start: 11/18/21 13:21 Freq: NEEDED Status: Active Protocol: Document 11/18/21 14:00 [facility] (Rec: 11/18/21 15:40 [facility] [id number]) Medical Review Prior Functional Status Medical History Reviewed Yes Communication able to make needs known Mobility and Gait pt stated that he is independent with all mobilities and ambulation without AD but occasionally uses a SPC depending on back pain Activities of Daily Living and IADL's completely independent with all his ADL' and IADl needs. Social History Household Members spouse,children Living Arrangements Apartment/Condo Number of Stairs To Enter/Railing? 2 steps to enter with L rail Home Equipment Front Wheel Walker,Straight Cane,Tub Transfer Bench,Hand Held Shower M2 OT-IP Current Condition Start: 11/18/21 15:19 Freq: Status: Active Protocol: Document 11/18/21 14:00 [facility] (Rec: 11/18/21 15:40 [facility] [id number]) Occupational Therapy Current Condition Current Condition Evaluation Date 11/18/21 Treatment Diagnosis Embolic CVA, left hand numbness Diagnosis Onset Date 11/18/21 M3 OT- IP Subjective and Pain Start: 11/18/21 15:19 Freq: Status: Active Protocol: Document 11/18/21 14:00 [facility] (Rec: 11/18/21 15:40 [facility] [id number]) OT- Subjective Occupational Therapy Visit Type Type Initial Evaluation Visit Start Time 14:00 Visit Stop Time 15:00 Total Visit Minutes 60 Occupational Therapy Visit Comments Patient Comments Pt agreed to get up for OT eval. Patient/Caregiver Goals TO go home. OT Pain Assessment Pain When Pain Assessed At Rest Pain Present Pain Present Pain Reported Location Back Intensity 5 M4 OT- IP ADL's Start: 11/18/21 15:19 Freq: Status: Active Protocol: Document 11/18/21 14:00 [facility] (Rec: 11/18/21 15:40 [facility] [id number]) OT [id number] Comments OT Self-Feeding Comments Not at meal time. OT ADL-Grooming General Evaluation Grooming Ability Independent OT ADL-Oral Care General Eval Oral Care Ability Independent OT ADL-Dressing General Eval Lower Body Dressing Ability Independent Comments OT Dressing Comments Pt able to sit to osman/doff his socks independently. OT ADL-Toileting Comments OT Toileting Comments Pt states not having to use the toilet at this time. OT ADL-Bathing Comments OT Bathing Comments Pt states uses a tub bench at home. To try a shower tomorrow if pt still here. M5 OT- IP IADL's Start: 11/18/21 15:19 Freq: Status: Active Protocol: Document 11/18/21 14:00 [facility] (Rec: 11/18/21 15:40 [facility] [id number]) OT-Instrumental Activities of Daily Living Home Safety Awareness Awareness of Need for Assistance at Home Good Awareness Ability to Problem Solve Emergency Able to Problem Solve Situations Medication Management Medication Management No Deficits Identified Money Management Money Management No Deficits Identified Driving Driving Comments Pt states does not feel comfortable to drive at this time. M6 OT- IP Functional Cognition Start: 11/18/21 15:19 Freq: Status: Active Protocol: Document 11/18/21 14:00 [facility] (Rec: 11/18/21 15:40 [facility] [id number]) Cognitive Factors Limiting Selfcare Function Cognitive Ability Level of Alertness Alert Patient Orientation Name,Age,Birthday,Month,Date, Year,Day of Week,Place, Situation Attention Span Ability Capable of Focused Attention, Capable of Sustained Attention Ability to Follow Commands Able to Follow One Step Commands Problem Solving Ability No deficits Noted Executive Function Ability Unable to Filter Distractions Cognitive Comments Cognitive Assessment Comments Pt scored 79 seconds for [place] Making Part B which implies normal but perfect for visual attention, speed of processing , task switching, mental flexibility, and executive functioning. Pt's score is at 40% for his age. Pt well aware that he does not feel comfortable to be able to drive home and thinking of just calling a cab home at this time. Pt intact for all home safety questions. Initially pt need a little longer time to process ,follow commands , and remember details from the day . OT- Vision and Hearing OT- Hearing Assessment OT- Hearing Assessment WFL OT- Vision Assessment Visual Acuity WFL Visual Attentiveness WFL Occular Pursuits WFL Visual Convergence WFL Visual Mueller WFL Diplopia Absent Visual Spacial Neglect Not Applicable M7 OT- IP Mobility and Balance Start: 11/18/21 15:19 Freq: Status: Active Protocol: Document 11/18/21 14:00 [facility] (Rec: 11/18/21 15:40 [facility] [id number]) OT-Transfer Assessment Sit to and From Stand Sit to and from Stand Standby Assistance Transfers Transfer Ability Standby Assistance Technique Transfer Destination Chair Transfer Technique Stand Step Pivot Devices Transfer Assistive Devices None,Gait Belt Comments Mobility Comments Initially when up on his feet noted slight lean to the left and occasional CGA for safety and then at the end of the session able to walk with close SBA. OT- Balance Assessment Sitting Balance and Reactions Static Sitting Balance Ability Normal Dynamic Sitting Balance Ability Normal Standing Balance and Reactions Static Standing Balance Ability Good Dynamic Standing Balance Ability Fair Comments Other Balance Tests/Deviations/Treatment Pt leaning to the left : initially when up on his feet and then at the end of the session more steady and even able to carry the trash can for 10 ft to simulate IADL chores at home with good safety. M8 OT- IP Objective Assessments Start: 11/18/21 15:19 Freq: Status: Active Protocol: Document 11/18/21 14:00 [facility] (Rec: 11/18/21 15:40 [facility] [id number]) OT Gross Range of Motion Upper Extremity Range of Motion Assessment Within Functional Limits OT Strength Comments Strength Comments BUE strength LUE slightly decreased from right side during regulation supervisor. NT for shoulders due to chronic back pain. OT- Coordination Assessment Upper Extremity Finger to Nose Test Within Functional Limits Finger Tapping Test Within Functional Limits Comments Coordination Comments Initially right hand not able to touch his nose of 1 and 2nd attempt and then able to do . Right hand 21 seconds and Left hand 19 seconds for 9 hole peg test, both scoring above 90% for his age group. OT-Muscle Tone Assessment Muscle Tone WNL Yes OT Sensation Assessment Comments Summary Comments Intact for light touch but pt states still feels a bit numb on the left side. Decreased proprioception for left wrist and fingers and right fingers. M9 OT- IP Assessment and Plan Start: 11/18/21 15:19 Freq: Status: Active Protocol: Document 11/18/21 14:00 [facility] (Rec: 11/18/21 15:40 [facility] [id number]) OT Summary Assessment and Plan Potential Rehabilitation Potential Good Analytic Complexity at Evaluation Moderate Summary OT Impairments Pain,Strength,Sensation, Functional Mobility,Toileting, Bathing,Activity Tolerance Progress Towards Goals Progressing Toward Goals Assessment Summary Pt MOD complexity due to CVA, however doing well and main barriers are decreased dynamic balance at this time and needing slight increased time to process and follow commands . Pt feels that he is close to his baseline needs. Pt states drove here, but has good awareness that he will just probably take a cab home. Pt to go home when medically stable and suggest outpt PT for dynamic balance needs. Goals Dressing Goal Independent Toileting Goal Independent Bathing Goal Independent Toilet Transfer Goal Independent Shower Transfer Goal Independent Days to Meet Goals 1 Frequency of Treatment Frequency Of Treatment Once a Day Treatment Plan OT Treatment Plan ADL Training,Functional Mobility,Patient/Family Education,Discharge Planning Discharge Recommendations OT Discharge Recommendations Home with Assistance, Outpatient PT Transportation Needs at Discharge Private Vehicle
--- NOTE | 2021-11-18 15:04 | P.PN_ITS ---
Subjective Subjective Date Patient Seen: 11/18/21 Interval history: 71 year old male admitted with an acute CVA. Left weakness slightly improved today as is his numbness. No other complaints. Tele with a short 3 beat run of NSVT, no shocks. Exam Vital Signs (past 8 hours): - 11/18/21 09:16 11/18/21 09:20 11/18/21 13:21 Temperature 98.2 F Pulse Rate 60 Respiratory Rate 18 Blood Pressure 96/60 Pulse Oximetry 98 Oxygen Delivery Method Room Air Room Air Oxygen Flow Rate 0 11/18/21 13:55 Temperature 97.4 F L Pulse Rate 65 Respiratory Rate 16 Blood Pressure 111/64 Pulse Oximetry 98 Oxygen Delivery Method Oxygen Flow Rate 0 Oxygen Delivery Method Room Air Oxygen Flow Rate 0 Narrative Exam Narrative: General:? Patient is well developed and well nourished, in no distress at this time. HEENT:? Normocephalic, atraumatic, extraocular muscles intact, oral pharynx is clear and mucous membranes are moist. Neck: supple and symmetric, trachea is midline, no cervical adenopathy. Negative for JVD Chest:? Normal AP diameter and contour without kyphoscoliosis, no tachypnea, equal chest rise bilaterally. Lungs:? CTA b/l no wheezing rhonchi or rales. Cardio:?RRR no m/r/g. Abdomen: S NT ND. No CVA tenderness. Musculoskeletal:? Muscle strength and tone are equal within normal limits, no deformity. Extremities: No edema or joint effusions. No cyanosis or clubbing. Skin:? Pale,? Warm to touch,dry and intact without rashes, ulcerations or petechiae.? Neuro:? Alert and orientated x3,? decreased sensation bilateral lower feet, chronic, with new decreased sensation in L hand and foot. L leg and hand weakness compared to R, though approx 5/5 today. rapid alternating movements slowed and irregular on the L. + facial asymmetry with slight droop on the L tho ugh improved today. Psych:? Patient has a well-kept appearance, appropriate affect, mental status at titude thought context and judgment are appropriate for age. Objective Labs Result Diagrams: 11/18/21 06:07 11/18/21 06:07 Labs: Laboratory Results - last 24 hr 11/18/21 11/18/21 06:07 06:07 WBC 5.3 RBC 4.34 L Hgb 13.2 L Hct 38.8 L MCV 89.5 MCH 30.6 MCHC 34.1 RDW 13.5 Plt Count 189 Neut % (Auto) 47.4 L Lymph % (Auto) 29.1 [place] % (Auto) 10.6 Eos % (Auto) 11.4 H Baso % (Auto) 1.5 Neut # (Auto) 2500 Lymph # (Auto) 1500 [place] # (Auto) 600 Eos # (Auto) 600 H Baso # (Auto) 100 Sodium 138 Potassium 4.2 Chloride 104 Carbon Dioxide 30 BUN 19 Creatinine 1.15 Estimated GFR > 60 BUN/Creatinine Ratio 16.5 Glucose 108 Calcium 8.4 Magnesium 1.8 PFSH Medical History Acute calculous cholecystitis Ascending aortic aneurysm Chronic pain HTN (hypertension) Kidney stones Surgical History AICD (automatic cardioverter/defibrillator) present S/P AVR (aortic valve replacement) and aortoplasty S/P CABG (coronary artery bypass graft) Status post laparoscopic cholecystectomy Family History (Updated 11/17/21 @ 14:41 by Ashvin Muhammad DO) Mother Diabetes mellitus Father Diabetes mellitus Social History household members: spouse and children Smoking Status: Never smoker alcohol intake: current Assessment & Plan Assessment & Plan narrative: This is a 71-year-old male with a past medical history of aortic valve replacement with mechanical valve on Coumadin, congenital heart disease, heart failure with reduced ejection fraction (due to valvular disease, most recently normal), hypertension, chronic low back pain, paroxysmal atrial flutter, AICD placement who came to the emergency room with left-sided weakness and numbness. Admitted for an acute CVA. 1. 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 Follow [facility] qshift for now. - TTE with no significant changes compared to prior study. - continue coumadin, INR therapeutic at 3.0. - unable to do MRI with prior aortic valve and AICD. though symptoms are consistent with CVA. - CT head unremarkable, CT angio without significant vascular disease further indicating embolic etiology. - continue PT / OT, possibly home tomorrow if continuing to improve. - resumed entresto and home metoprolol. 2. paroxysmal atrial flutter, history of aortic valve replacement - continue coumadin. 3. CHFrEF - continue home entresto and metoprolol. - appears euvolemic currently, some mild dyspnea, will repeat TTE. No need for diuresis. Most recent TTE in records with EF 50-55%. 4. HTN, chronic - continue home medications as noted above. 5. Chronic back pain - continue home oxycodone. Code: Full, surrogate decision maker is his spouse Dispo: Patient is admitted under inpatient status as his stay is expected to exceed 2 midnights DVT: On Coumadin I have utilized all available immediate resources to obtain, update, or review the patient's current medications. COVID-19 COVID-19 status: Negative Time Spent With Patient Critical Care time: I spent a total of [] minutes of critical care time on this patient's care today; this time is exclusive of procedural time. Quality Stroke Contraindication Not Initiating IV-Tpa: Contraindicated
[2021-11-18] MEDS: WARFARIN 1 MG TABLET PO (19:07)
[2021-11-19 02:25] VITALS: BP 119/71; PULSE 63; RESP 14; TEMP 36.2; O2SAT 97
[2021-11-19] MEDS: OXYCODONE IR 5 MG TABLET PO (06:26)
[2021-11-19 06:27] VITALS: BP 107/62; PULSE 64; RESP 14; TEMP 36.6; O2SAT 96
[2021-11-19 06:43] LABS: Add Manual Diff / Slide Review NO; Basophils Absolute Auto 100 /uL (0-100); Basophils Percent Auto 1.2 % (0-2); Eosinophils Absolute Auto 600 /uL (0-450); Eosinophils Percent Auto 9.7 % (2-4); Hematocrit 39.3 % (41-53); Hemoglobin 13.3 g/dL (13.5-17.5); Lymphocytes Absolute Auto 1500 /uL (1100-4500); Lymphocytes Percent Auto 24.9 % (25-40); Mean Corpuscular Hemoglobin 30.2 PG (26-34); Monocytes Absolute Auto 500 /uL (0-900); Monocytes Percent Auto 9.1 % (3-14); Neutrophils Absolute Auto 3300 /uL (1500-7000); Neutrophils Percent Auto 55.1 % (50-75); Platelet Count 190 X10^3/uL (150-400); Red Blood Cell Count 4.41 X10^6/uL (4.5-5.9); Red Cell Distribution Width 13.4 % (11.6-14.8)
[2021-11-19 06:45] LABS: BUN Creatinine Ratio 23.1 (6-22); Blood Urea Nitrogen 24 mg/dL (9-20); Calcium 8.5 mg/dL (8.4-10.2); Carbon Dioxide 28 mmol/L (22-32); Chloride 105 mmol/L (98-107); Estimated Glomerular Filt Rate > 60 mL/min (>60); Glucose 118 mg/dL (80-110); HEMOLYSIS < 15 (0-50); Sodium 137 mmol/L (137-145)
--- NOTE | 2021-11-19 08:32 | OT.IP.TRT ---
Current Diagnoses Cerebral infarction, unspecified (11/17/21) Occupational Therapy Treatment Note M2 OT-IP Current Condition Start: 11/18/21 15:19 Freq: Status: Active Protocol: Document 11/18/21 14:00 [facility] (Rec: 11/18/21 15:40 [facility] [id number]) Occupational Therapy Current Condition Current Condition Evaluation Date 11/18/21 Treatment Diagnosis Embolic CVA, left hand numbness Diagnosis Onset Date 11/18/21 M3 OT- IP Subjective and Pain Start: 11/18/21 15:19 Freq: Status: Active Protocol: Document 11/19/21 08:30 [facility] (Rec: 11/19/21 09:20 [facility] [id number]) OT- Subjective Occupational Therapy Visit Type Type Treatment Note Visit Start Time 08:30 Visit Stop Time 09:02 Total Visit Minutes 32 Occupational Therapy Visit Comments Patient Comments Pt states had a good night's sleep and feeling better today. Pt states to just shower at home. . Patient/Caregiver Goals TO go home. OT Pain Assessment Pain When Pain Assessed At Rest Pain Present Pain Present Denied Pain M5 OT- IP IADL's Start: 11/18/21 15:19 Freq: Status: Active Protocol: Document 11/18/21 14:00 [facility] (Rec: 11/18/21 15:40 [facility] [id number]) OT-Instrumental Activities of Daily Living Home Safety Awareness Awareness of Need for Assistance at Home Good Awareness Ability to Problem Solve Emergency Able to Problem Solve Situations Medication Management Medication Management No Deficits Identified Money Management Money Management No Deficits Identified Driving Driving Comments Pt states does not feel comfortable to drive at this time. M6 OT- IP Functional Cognition Start: 11/18/21 15:19 Freq: Status: Active Protocol: Document 11/19/21 08:30 [facility] (Rec: 11/19/21 09:20 [facility] [id number]) Cognitive Factors Limiting Selfcare Function Cognitive Ability Level of Alertness Alert Patient Orientation Name,Age,Birthday,Month,Date, Year,Day of Week,Place, Situation Attention Span Ability Capable of Focused Attention, Capable of Sustained Attention Ability to Follow Commands Able to Follow Multi-Step Commands Problem Solving Ability No deficits Noted Executive Function Ability Unable to Filter Distractions Cognitive Comments Cognitive Assessment Comments Pt scored 82 seconds for [place] Making Part B which implies normal but perfect for visual attention, speed of processing , task switching, mental flexibility, and executive functioning. Pt's score is at 30% for his age. Pt continues to miss seeing items immediately on the assessment directly in front of him. Pt not sure if he will drive home and but pt feels that he is capable to do so. OT- Vision and Hearing OT- Vision Assessment Visual Acuity WFL Visual Attentiveness WFL Occular Pursuits WFL Visual Convergence WFL Visual Mueller WFL Diplopia Absent Visual Spacial Neglect Not Applicable M7 OT- IP Mobility and Balance Start: 11/18/21 15:19 Freq: Status: Active Protocol: Document 11/19/21 08:30 [facility] (Rec: 11/19/21 09:20 [facility] [id number]) OT- Bed Mobility Assessment Supine to Sit Supine to Sit Assist Standby Assistance OT-Transfer Assessment Sit to and From Stand Sit to and from Stand Independent Transfers Transfer Ability Independent Technique Transfer Destination Bed,Chair Transfer Technique Stand Step Pivot Devices Transfer Assistive Devices None,Gait Belt Comments Mobility Comments Pt independent in the room without a device. OT- Balance Assessment Sitting Balance and Reactions Static Sitting Balance Ability Normal Dynamic Sitting Balance Ability Normal Standing Balance and Reactions Static Standing Balance Ability Normal Dynamic Standing Balance Ability Good Comments Other Balance Tests/Deviations/Treatment Pt able to bus his tray, carry : his tray and walk it to the hallway to put in away on the cart with SBA from therapist with good safety. M8 OT- IP Objective Assessments Start: 11/18/21 15:19 Freq: Status: Active Protocol: Document 11/19/21 08:30 [facility] (Rec: 11/19/21 09:20 [facility] [id number]) OT Strength Comments Strength Comments Today WFL for LUE and noted slight tightness at end ROM for right shoulder. Educated pt on self gentle stretching to his right internal rotators . OT- Coordination Assessment Upper Extremity Finger to Nose Test Within Functional Limits Finger Tapping Test Within Functional Limits OT Sensation Assessment Comments Summary Comments Leftt wrist decreased for proprioception. Edema Edema Comments Right hand and forearm noted swollen and nurse notified. M9 OT- IP Assessment and Plan Start: 11/18/21 15:19 Freq: Status: Active Protocol: Document 11/19/21 08:30 [facility] (Rec: 11/19/21 09:20 [facility] [id number]) OT Summary Assessment and Plan Potential Rehabilitation Potential Excellent Analytic Complexity at Evaluation Moderate Summary OT Impairments Pain,Strength,Sensation, Functional Mobility,Toileting, Bathing,Activity Tolerance Progress Towards Goals Progressing Toward Goals Assessment Summary Pt states feels 85-90% of his baseline especially for his mobility needs. Pt feels still on the borderline of trying to drive home. Therapist suggesting to get a ride at this time as during [place] Making Part B noted not automatically seeing items directly in front of him. Pt would still benefit from outpt PT for high level dynamic balance needs. Goals Bathing Goal Independent Days to Meet Goals 1 Frequency of Treatment Frequency Of Treatment Once a Day Treatment Plan OT Treatment Plan ADL Training,Functional Mobility,Patient/Family Education,Discharge Planning Discharge Recommendations OT Discharge Recommendations Home with Assistance, Outpatient PT Transportation Needs at Discharge Private Vehicle
[2021-11-19 08:55] VITALS: BP 106/66; PULSE 65; RESP 16; TEMP 36.7; O2SAT 95
--- NOTE | 2021-11-19 09:17 | P.DS_ITS ---
History of Present Illness History of Present Illness Date Patient Seen: 11/19/21 Time Patient Seen: 09:17 Chief complaint: Left arm numb/painful, SOB, dizzy Narrative: This is a 71-year-old male with a past medical history of aortic valve replacement with mechanical valve on Coumadin, congenital heart disease, heart failure with reduced ejection fraction (due to valvular disease, most recently normal), hypertension, chronic low back pain, paroxysmal atrial flutter, AICD placement who came to the emergency room with left-sided weakness and numbness. The patient states that he woke up this morning with left leg weakness and some left hand weakness but predominantly numbness. His last known normal was when he went to bed yesterday evening. He states over the past month or so he has had a couple episodes chest pain requiring nitro, but none recently eyes any palpitations, shock. He does endorse some lower extremity swelling, though that is quite mild intermittent mild shortness of breath. He denies orthopnea, fever, chills, abdominal pain, nausea, vomiting, dysuria, or urinary frequency. Spouse at bedside did not notice See room, his vital signs were unremarkable, laboratory evaluation revealed an unremarkable CBC, INR was within therapeutic limits at 3.0, chemistries were also unremarkable and troponin was negative. Urine drug screen was positive for oxycodone which the patient chronically takes for back pain. COVID-[address] noncontrast of his head showed no hemorrhage. CT angiogram of his head and neck showed no significant vessel disease. Patient was admitted for further management of presumed stroke. Discharge Providers Provider Date of admission: 11/17/21 13:04 Discharge Date: 11/19/21 Primary care physician: JAMAL Morris Consults: 11/17/21 14:14 Consult to Occupational Therapy Evaluate & Treat Comment: Physician Instructions: Evaluate and treat Consult to Physical Therapy Evaluate & Treat Comment: Physician Instructions: Evaluate and Treat Discharge provider: Ashvin Muhammad DO Summary Hospital Course Discharge Diagnosis: Please see hospital course by problem list noted below Hospital Course: This is a 71-year-old male with a past medical history of aortic valve replacement with mechanical valve on Coumadin, congenital heart disease, heart failure with reduced ejection fraction (due to valvular disease, most recently normal), hypertension, chronic low back pain, paroxysmal atrial flutter, AICD placement who came to the emergency room with left-sided weakness and numbness. Admitted for an acute CVA. 1. CVA, embolic ?- presumed secondary to aflutter and valvular disease. His stroke symptoms improved over the course of his stay. ?- TTE with no significant changes compared to prior study. ?- continue coumadin, INR therapeutic at 3.0. ?- unable to do MRI with prior aortic valve and AICD. though symptoms are consistent with CVA. ?- CT head unremarkable, CT angio without significant vascular disease further indicating embolic etiology. ?- primary care follow up recommended in the next 1-2 weeks. Consider PT referral as an outpatient. ?- resumed entresto and home metoprolol. 2. paroxysmal atrial flutter, history of aortic valve replacement ?- continue coumadin. 3. CHFrEF ?- continue home entresto and metoprolol. ?- appeared euvolemic currently. No changes from prior echo on study that was repeated here. Current EF 50-55%, same as previous. 4. HTN, chronic ?- continue home medications as noted above. 5. Chronic back pain - continued home medciations. Time Spent with Patient Time spent: Greater than 30 minutes Exam Vital Signs (past 8 hours): - 11/19/21 02:25 11/19/21 05:00 11/19/21 06:27 Temperature 97.2 F L 97.8 F Pulse Rate 63 64 Respiratory Rate 14 14 Blood Pressure 119/71 107/62 Pulse Oximetry 97 96 Oxygen Delivery Method Room Air Oxygen Flow Rate 0 Oxygen Delivery Method Room Air Oxygen Flow Rate 0 Narrative Exam Narrative: General:? Patient is well developed and well nourished, in no distress at this time. HEENT:? Normocephalic, atraumatic, extraocular muscles intact, oral pharynx is clear and mucous membranes are moist. Neck: supple and symmetric, trachea is midline, no cervical adenopathy. Negative for JVD Chest:? Normal AP diameter and contour without kyphoscoliosis, no tachypnea, equal chest rise bilaterally. Lungs:? CTA b/l no wheezing rhonchi or rales. Cardio:?RRR no m/r/g. Abdomen: S NT ND. No CVA tenderness. Musculoskeletal:? Muscle strength and tone are equal within normal limits, no deformity. Extremities: No edema or joint effusions. No cyanosis or clubbing. Skin:? Pale,? Warm to touch,dry and intact without rashes, ulcerations or petechiae.? Neuro:? Alert and orientated x3,? decreased sensation bilateral lower feet, chronic now improved to baseline. L leg weakness improved, now grossly equal bilaterally. Psych:? Patient has a well-kept appearance, appropriate affect, mental status attitude thought context and judgment are appropriate for age. Objective Labs Result Diagrams: 11/19/21 06:14 11/19/21 06:14 Labs: Laboratory Results - last 24 hr 11/19/21 11/19/21 06:14 06:14 WBC 6.0 RBC 4.41 L Hgb 13.3 L Hct 39.3 L MCV 89.0 MCH 30.2 MCHC 34.0 RDW 13.4 Plt Count 190 Neut % (Auto) 55.1 Lymph % (Auto) 24.9 L Schleicher % (Auto) 9.1 Eos % (Auto) 9.7 H Baso % (Auto) 1.2 Neut # (Auto) 3300 Lymph # (Auto) 1500 Schleicher # (Auto) 500 Eos # (Auto) 600 H Baso # (Auto) 100 Sodium 137 Potassium 4.0 Chloride 105 Carbon Dioxide 28 BUN 24 H Creatinine 1.04 Estimated GFR > 60 BUN/Creatinine Ratio 23.1 H Glucose 118 H Calcium 8.5 Magnesium 2.0 PFSH Medical History Acute calculous cholecystitis Ascending aortic aneurysm Chronic pain HTN (hypertension) Kidney stones Surgical History AICD (automatic cardioverter/defibrillator) present S/P AVR (aortic valve replacement) and aortoplasty S/P CABG (coronary artery bypass graft) Status post laparoscopic cholecystectomy Family History (Updated 11/17/21 @ 14:41 by Ashvin Muhammad DO) Mother Diabetes mellitus Father Diabetes mellitus Social History household members: spouse and children Smoking Status: Never smoker alcohol intake: current Discharge Plan Discharge Plan Patient Disposition: Home Provider Discharge Comment: You were admitted to the hospital after a stroke. This was likely a result of your atrial flutter. No medication changes are recommended. Follow up with your PCP as you have already scheduled. Please visit an [facility] for an eye check up, recommend against driving at this time until your PCP follow up. Discharge orders & Medications Prescriptions: Continued nitroglycerin 0.3 mg tablet, sublingual 0.3 mg sublingual Q5MIN PRN (Reason: Chest Pain) Label Comments: Place 1 tablet (0.3 mg total) under the tongue every 5 (five) min...(REFER TO PRESCRIPTION NOTES). metoprolol succinate 25 mg tablet extended release 24 hr 25 mg PO DAILY Label Comments: take 1 AND 1/2 tablets by mouth once daily warfarin 1 mg tablet 2 mg PO SEEINSTR Label Comments: take 2 tablets by mouth once daily EXCEPT MONDAY AND MONDAY TAKE 1MG Rx Instructions: take 2 tablets by mouth once daily EXCEPT MONDAY AND MONDAY TAKE 1MG warfarin 1 mg tablet 1 mg PO SEEINSTR Label Comments: take 2 tablets by mouth once daily EXCEPT MONDAY AND MONDAY TAKE 1MG Rx Instructions: take 2 tablets by mouth once daily EXCEPT MONDAY AND MONDAY TAKE 1MG oxycodone 5 mg tablet 5 mg PO Q8HR PRN (Reason: Pain (Scale Score 4-6)) Label Comments: take 1 tablet by mouth twice a day Entresto 24-26 mg tablet 0.5 tab PO BID Label Comments: take 1/2 tablet by mouth twice a day Follow up/Referrals: Mohini Dc ARNP [Primary Care Provider] - Diet/Activity/Treatments Diet: Diet as Tolerated Activity: As toleratedr Visit Report/Discharge Packet Instructions: Progress in Stroke Prevention, DI for Heart Failure, DI for Chronic Pain -- Adult Discharge Data Primary Care Provider: Mohini Dc Quality Stroke Contraindication Not Initiating IV-Tpa: Contraindicated
[2021-11-19 09:53] VITALS: BP 106/66; PULSE 65; O2SAT 95
[2021-11-19] MEDS: METOPROLOL ER 25 MG TABLET 37.5 MG PO (09:53)
[2021-11-19 10:25] VITALS: BP 115/64; PULSE 63
--- NOTE | 2021-11-19 10:30 | PT-IP ANOTE ---
Attempted to see pt at 10:30, pt refused - has already been cleared from PT as of yesterday and states he has no further needs and feels safe and ready to return home.
--- NOTE | 2021-11-19 10:45 | PC.NURSE ---
Pt dressed and ready for discharge via taxi service. Pt IV removed and tele removed. Pt does not have any medications at the pharmacy and no items being kept in the safe. Discharge instructions provided to pt and answered questions. Pt provided education about stroke signs and symptoms, stroke education, heart failure and chronic pain. Pt taken out with all belongings via wheel chair by KIAN.
== END 2021-11-19 11:00 | disposition home or self-care (01) | DRG 65 ==
LOC: ED 13:04 → AC 13:04
PROVIDERS: Admitting Provider Internal Medicine; Emergency Provider Emergency Medicine; PCP Nurse Practitioner Family; Referring Provider Emergency Medicine; Visit Provider Internal Medicine
DX: I63.9 Cerebral infarction, unspecified (principal); G81.94 Hemiplegia, unspecified affecting left nondominant side; I48.92 Unspecified atrial flutter; I50.22 Chronic systolic (congestive) heart failure; M54.9 Dorsalgia, unspecified; R29.703 NIHSS score 3; G89.29 Other chronic pain; I11.0 Hypertensive heart disease with heart failure; Z79.01 Long term (current) use of anticoagulants; Z95.810 Presence of automatic (implantable) cardiac defibrillator; Z95.2 Presence of prosthetic heart valve; Z20.822 Contact with and (suspected) exposure to COVID-19; Z87.891 Personal history of nicotine dependence
CPT/HCPCS: 36415; 70450; 70496; 70498; 71045; 80048; 80053; 80305; 81003; 82550; 82553; 83735; 84484; 85025; 85610; 85730; 87635; 93005; 93306; 97161; 97166; 97530; 99284; C9803; Q9967

== ENCOUNTER 2022-01-25 15:58 | Emergency (ER) | payer MEDICARE, SELFPAY ==
[2021-11-17 18:20] VITALS: BMI 28.1
[2022-01-25] VITALS (53 sets, daily range): BP systolic 89–133; BP diastolic 52–66; PULSE 59–83; RESP 8–25; TEMP 36.7; O2SAT 92–100; BMI 22.9
--- NOTE | 2022-01-25 16:06 | DI.CT.S_ITS ---
PROCEDURE: CT HEAD/BRAIN WO CON INDICATIONS: slurred speech TECHNIQUE: Noncontrast 4.5 mm thick angled axial sections acquired from the foramen magnum to the vertex, with coronal and sagittal reformats. For radiation dose reduction, the following was used: automated exposure control, adjustment of mA and/or kV according to patient size. COMPARISON: [facility], CT, CT ANGIO HEAD AND NECK, 11/17/2021, 11:30. [facility], CT, CT STROKE, 11/17/2021, 11:30. FINDINGS: Image quality: Excellent. CSF spaces: Basal cisterns are patent. No extra-axial fluid collections. The ventricles are symmetric in size and shape. Brain: No intracranial bleeds or masses. There is cerebral volume loss for age, with resultant ventricular and sulcal prominence. There are periventricular and deep white matter chronic small vessel ischemic changes. There is intracranial internal carotid artery atherosclerosis. Skull and face: Calvarium and visualized facial bones appear intact, without suspicious lesions. Sinuses: Visualized sinuses and mastoids are clear. IMPRESSION: No significant noncontrast head CT abnormality can be seen. If there is strong clinical suspicion for an acute stroke, please consider a brain MRI for further evaluation, as it is more sensitive (assuming that there is no contraindication to MRI). Dictated by: Rosalio Mares M.D. on 01/25/2022 at 15:33 Approved by: Rosalio Mares M.D. on 01/25/2022 at 15:34
[2022-01-25 16:13] LABS: Add Manual Diff / Slide Review NO; Basophils Absolute Auto 100 /uL (0-100); Basophils Percent Auto 0.7 % (0-2); Eosinophils Absolute Auto 300 /uL (0-450); Eosinophils Percent Auto 4.5 % (2-4); Hematocrit 44.3 % (41-53); Hemoglobin 14.8 g/dL (13.5-17.5); Lymphocytes Absolute Auto 2400 /uL (1100-4500); Lymphocytes Percent Auto 33.4 % (25-40); Mean Corpuscular HGB Conc 33.4 % (30-36); Mean Corpuscular Volume 89.8 fL (80-100); Monocytes Absolute Auto 600 /uL (0-900); Monocytes Percent Auto 7.7 % (3-14); Neutrophils Absolute Auto 3900 /uL (1500-7000); Neutrophils Percent Auto 53.7 % (50-75); Platelet Count 202 X10^3/uL (150-400); Red Blood Cell Count 4.94 X10^6/uL (4.5-5.9); Red Cell Distribution Width 13.4 % (11.6-14.8); White Blood Cell Count 7.2 X10^3/uL (4.5-11.0)
--- NOTE | 2022-01-25 16:15 | DI.CT.S_ITS ---
PROCEDURE: CT ANGIO HEAD AND NECK INDICATIONS: speech deficit, facial weakness, numbness TECHNIQUE: Noncontrast images were performed earlier in the day and not repeated. After the administration of intravenous contrast, 1 mm thick sections acquired from the aortic arch through the [place] of [place]. Post-contrast 4.5 mm thick sections then re-acquired from the foramen magnum to the vertex. 3-dimensional ahdrymc-hztfmbdxn-ecxvwivqlk (MIP) and/or volume rendering reformats were acquired of the central intracranial vasculature and neck separately. For radiation dose reduction, the following was used: automated exposure control, adjustment of mA and/or kV according to patient size. COMPARISON: [facility], CT, CT HEAD/BRAIN WO CON, 01/25/2022, 16:26. [facility], CT, CT ANGIO HEAD AND NECK, 11/17/2021, 11:30. FINDINGS: Image quality: Within normal limits BRAIN: CSF spaces: Ventricles are normal in size and shape. Basal cisterns are patent. No extra-axial fluid collections. Brain: No midline shift. No intracranial bleeds or masses. Chen-white matter interface appears intact. Skull and face: Calvarium and facial bones appear intact, without suspicious lesions. Orbits appear normal. Sinuses: Sinuses and mastoids are clear. HEAD CT ANGIOGRAPHY: Anterior circulation: Intracranial internal carotid arteries are normal in size and flow. The flow within the paired anterior cerebral arteries is normal and symmetric. The flow within the middle cerebral arteries is normal and symmetric. The anterior communicating artery is seen. No aneurysms are seen. Posterior circulation: Visualized portions of the vertebral arteries demonstrate normal caliber, and join to form a normal appearing basilar artery. Flow within the posterior cerebral arteries is normal and symmetric. No aneurysms are seen. NECK CT ANGIOGRAPHY: Carotid system: Incidental note is made of a common origin of the right brachiocephalic artery and the left common carotid artery (bovine type arch). This is considered to be a developmental variant of no clinical consequence. The origins of the common carotid arteries appear patent. The common carotid arteries demonstrate normal caliber and courses. The bifurcation regions are both widely patent. The internal carotid arteries demonstrate normal calibers and courses. Posterior circulation: The origins of the vertebral arteries both appear widely patent. The more superior extracranial portions of both vertebral arteries also demonstrate normal courses and calibers. They join to form a normal appearing basilar artery. Soft tissues: Visualized neck soft tissues demonstrate no suspicious abnormalities. Left-sided pacer leads are seen. Bones: No suspicious bony lesions. Visualized cervical spine appears normally aligned. A sternotomy wire can be seen. Moderate cervical spine degenerative change can be seen. IMPRESSION: No significant intracranial arterial abnormality is seen. Within the arteries of the neck, no hemodynamically significant stenosis can be seen. Incidental note is made of: Bovine type aortic branching pattern Sternotomy wire Left-sided pacer leads Moderate cervical spine degenerative change Any quantitative measurements of stenosis were performed using NASCET criteria. Dictated by: Rosalio Mares M.D. on 01/25/2022 at 15:47 Approved by: Rosalio Mares M.D. on 01/25/2022 at 15:49
[2022-01-25 16:22] LABS: INR 2.4 (0.9-1.3); Prothrombin Time 27.9 SECONDS (10.1-12.7)
[2022-01-25 16:26] LABS: Alanine Aminotransferase 19 IU/L (<50); Albumin 4.5 g/dL (3.5-5.0); Albumin Globulin Ratio 1.2 (1.0-2.8); Alkaline Phosphatase 74 U/L (38-126); Aspartate Aminotransferase 31 IU/L (17-59); BUN Creatinine Ratio 11.1 (6-22); Bilirubin Total 1.3 mg/dL (0.2-1.3); Blood Urea Nitrogen 12 mg/dL (9-20); Calcium 9.1 mg/dL (8.4-10.2); Carbon Dioxide 27 mmol/L (22-32); Chloride 103 mmol/L (98-107); Creatine Kinase 170 U/L (55-170); Estimated Glomerular Filt Rate > 60 mL/min (>60); Globulin 3.8 g/dL (1.7-4.1); Glucose 104 mg/dL (80-110); HEMOLYSIS 16 (0-50); Potassium 3.8 mmol/L (3.4-5.1); Sodium 140 mmol/L (137-145); Total Protein 8.3 g/dL (6.3-8.2)
[2022-01-25 16:38] LABS: NT-proBNP (BNP-Adult 18+) 456 pg/mL (<125); Troponin I < 0.012 ng/mL (0.01-0.034)
[2022-01-25 16:42] LABS: CKMB % Relative Index 2.4 % (1.5-5.0); Creatine Kinase MB 4.01 ng/mL (<2.37)
--- NOTE | 2022-01-25 17:00 | PC.NURSE ---
pt states his defib went off and he fell down in the yard and couldnt get up. the neighbor called 911. family states pt had stroke in september/october and was left with some left leg weakness but pt was seen at 0600 this morning going to work, worked until 1515 and went to get the mail when he got home. on the way to the mail box his def went off and he suddenly felt unwell.
--- NOTE | 2022-01-25 17:06 | ED.NEUROSD ---
HPI - Neuro Symptoms/Deficit <DO Delicia Ferguson Last Filed: 01/28/22 04:28> General Chief Complaint: Neuro Symptoms/Deficit Stated Complaint: Defib implant shock 15 mins ago Time Seen by Provider: 01/25/22 16:06 Source: patient and EMS Mode of arrival: EMS History of Present Illness HPI Narrative: 71M nonsmoker with extensive medical history includin coronary artery disease with prior bypass, aortic valve replacement, AICD and pacer on chronic anticoagulation, had a stroke outside of the window in October that left him with left-sided deficits presents today by EMS for evaluation of a defibrillator discharge. He states that he was in his normal state of health up until just after leaving from work which is at 3:15 p.m. when he felt dizzy and lightheaded with shortness of breath and then felt his defibrillator discharge. This is the 1st time it has gone off in about 8 years and it was originally placed about 10 years ago. In the aftermath he is had some chest pain but is felt continued dizziness and having slurring of his speech and difficulty finding words. On Anticoagulants: Yes (warfarin) Related Data Home Medications Medication Instructions Recorded Confirmed metoprolol succinate 25 mg 25 mg PO DAILY 06/23/20 11/17/21 tablet,extended release 24 hr nitroglycerin 0.3 mg sublingual 0.3 mg sublingual Q5MIN PRN Chest 06/23/20 11/17/21 tablet Pain oxycodone 5 mg tablet 5 mg PO Q8HR PRN Pain (Scale Score 06/23/20 11/17/21 4-6) sacubitril 24 mg-valsartan 26 mg 0.5 tab PO BID 06/23/20 11/17/21 tablet (Entresto) warfarin 1 mg tablet 1 mg PO SEEINSTR 06/23/20 11/17/21 warfarin 1 mg tablet 2 mg PO SEEINSTR 06/23/20 11/17/21 Allergies Allergy/AdvReac Type Severity Reaction Status Date / Time No Known Drug Allergies Allergy Verified 11/17/21 11:19 Review of Systems <DO Delicia Ferguson Last Filed: 01/28/22 04:28> Hematologic/Lymphatic On Anticoagulants: Yes (warfarin) Patient History <DO Delicia Ferguson Last Filed: 01/28/22 04:28> Medical History Acute calculous cholecystitis Ascending aortic aneurysm Chronic pain HTN (hypertension) Kidney stones Surgical History AICD (automatic cardioverter/defibrillator) present S/P AVR (aortic valve replacement) and aortoplasty S/P CABG (coronary artery bypass graft) Status post laparoscopic cholecystectomy Family History (Updated 11/17/21 @ 14:41 by Ashvin Muhammad DO) Mother Diabetes mellitus Father Diabetes mellitus Social History household members: spouse and children Smoking Status: Never smoker alcohol intake: current Smoking Status: Never smoker alcohol intake frequency: holidays/special occasions only Substance Use Type: does not use Exam <Saul Mckeon DO - Last Filed: 01/28/22 04:28> Narrative Exam Narrative: GENERAL: [71] year old patient appears stated age. Well-developed patient, in moderate distress, slurring his words, visibly anxious HEAD: Atraumatic. Normocephalic. EYES: Pupils equal round and reactive. Extraocular motions intact. No scleral icterus. No injection or drainage. ENT: Dry mucous membranes Nose without bleeding, purulent drainage. Throat without erythema, tonsillar hypertrophy or exudate. Airway patent. NECK: Trachea midline. Non tender CARDIOVASCULAR: Regular rate and rhythm without murmurs, gallops, or rubs. RESPIRATORY: Clear to auscultation. Breath sounds equal bilaterally. No wheezes, rales, or rhonchi. GASTROINTESTINAL: Abdomen soft, non-tender, nondistended. EXTREMITIES: No edema or joint tenderness. BACK: Nontender without deformity or crepitance. No flank tenderness. NEURO: AOx3. SKIN: No rash or erythema of visible areas Initial Vital Signs Initial Vital Signs: Vital Signs Temperature 98.0 F 01/25/22 16:08 Pulse Rate 81 01/25/22 16:08 Respiratory Rate 18 01/25/22 16:08 Blood Pressure 131/66 01/25/22 16:08 Pulse Oximetry 96 01/25/22 16:08 Oxygen Delivery Method 01/25/22 16:08 <Sarah Valero DO - Last Filed: 01/26/22 19:26> Initial Vital Signs Initial Vital Signs: Vital Signs Temperature 98.0 F 01/25/22 16:08 Pulse Rate 81 01/25/22 16:08 Respiratory Rate 18 01/25/22 16:08 Blood Pressure 131/66 01/25/22 16:08 Pulse Oximetry 96 01/25/22 16:08 Oxygen Delivery Method 01/25/22 16:08 Scores <Saul Mckeon DO - Last Filed: 01/28/22 04:28> NIH Stroke Scale Level of Conciousness: Alert, keenly responsive Ask month/age: Answers both questions correctly. Open/close eyes, close hand: Performs both tasks correctly Best gaze horizontal: Normal Visual leija: No visual loss Facial palsy: Normal symetrical movement Left arm drift: Drifts down, not to bed Right arm drift: No drift for full 10 sec Left leg drift: Drifts down, not to bed Right leg drift: Drifts down, not to bed Limb ataxia: Absent Sensory on face/arms/legs: Mild to moderate sensory loss, can tell touch Best language: Severe aphasia, not much is understood, fragmented Dysarthria: Mild to mod,some slurring Extinction or inattention: No abnormality Total NIH Stroke scale score: 7 <Sarah Valero DO - Last Filed: 01/26/22 19:26> NIH Stroke Scale Total NIH Stroke scale score: 7 Course <Saul Mckeon DO - Last Filed: 01/28/22 04:28> Orders Ordered: Discontinued Medications Amiodarone HCl/Dextrose (Nexterone) 150 mg in 100 mls @ 600 mls/hr IV NOW ONE; Protocol Stop: 01/25/22 18:08 Last Infusion: 01/25/22 18:59 Dose: 0 mls/hr Documented By: Admin: 01/25/22 18:39 Dose: 600 mls/hr Documented By: CATRACHITA Amiodarone HCl/Dextrose (Nexterone) 360 mg in 200 mls @ 33.333 mls/hr IV NOW ONE; Protocol Stop: 01/26/22 01:34 Last Titration: 01/26/22 02:10 Dose: 0 ml/hr, 0 mls/hr Documented By: Admin: 01/25/22 19:39 Dose: 33 ml/hr, 33 mls/hr Documented By: CATRACHITA Amiodarone HCl/Dextrose (Nexterone) 540 mg in 300 mls @ 16.7 mls/hr IV CONT LESTER; Protocol Stop: 01/26/22 20:13 Amiodarone HCl/Dextrose (Nexterone) 360 mg in 200 mls @ 16.7 mls/hr IV CONT LESTER; Protocol Stop: 01/26/22 14:44 Last Admin: 01/26/22 02:53 Dose: 16.7 ml/hr, 16.7 mls/hr Documented By: AP Consultations Consultation #1: 1710 - call to Stroke, not candidate for TPA given use of anticoagulation. No Code IR given lack of findings on CTA Consultation #2: 1730 - call to Cardiology, no immediate recommendations other than hold anticoagulation Vital Signs Vital signs: Vital Signs - 8 hr 01/25/22 21:00 01/25/22 21:00 01/25/22 21:05 Pulse Rate 60 61 Respiratory Rate 12 14 Blood Pressure 114/57 L Pulse Oximetry 98 97 01/25/22 21:10 01/25/22 21:15 01/25/22 21:15 Pulse Rate 63 69 Respiratory Rate 20 12 Blood Pressure 133/64 Pulse Oximetry 96 99 01/25/22 21:20 01/25/22 21:30 01/25/22 21:30 Pulse Rate 60 60 Respiratory Rate 19 13 Blood Pressure 105/55 L Pulse Oximetry 97 95 01/25/22 22:00 01/25/22 22:00 01/25/22 22:30 Pulse Rate 60 Respiratory Rate 22 Blood Pressure 105/59 L 109/57 L Pulse Oximetry 94 01/25/22 22:30 01/25/22 23:00 01/25/22 23:00 Pulse Rate 60 60 Respiratory Rate 24 18 Blood Pressure 112/61 Pulse Oximetry 95 95 01/25/22 23:30 01/25/22 23:30 01/26/22 00:00 Pulse Rate 60 Respiratory Rate 17 Blood Pressure 110/55 L 115/59 L Pulse Oximetry 95 01/26/22 00:00 01/26/22 00:30 01/26/22 00:30 Pulse Rate 60 60 Respiratory Rate 12 20 Blood Pressure 103/57 L Pulse Oximetry 96 94 01/26/22 01:00 01/26/22 01:00 01/26/22 01:30 Pulse Rate 60 Respiratory Rate 48 H Blood Pressure 109/58 L 109/57 L Pulse Oximetry 97 01/26/22 01:30 01/26/22 02:00 01/26/22 02:00 Pulse Rate 60 60 Respiratory Rate 22 19 Blood Pressure 100/57 L Pulse Oximetry 98 97 01/26/22 02:30 01/26/22 02:30 01/26/22 03:00 Pulse Rate 61 Respiratory Rate 20 Blood Pressure 123/58 L 93/54 L Pulse Oximetry 98 01/26/22 03:00 01/26/22 03:30 01/26/22 03:30 Pulse Rate 60 61 Respiratory Rate 22 25 H Blood Pressure 113/61 Pulse Oximetry 96 97 01/26/22 04:00 01/26/22 04:00 01/26/22 04:30 Pulse Rate 60 Respiratory Rate 13 Blood Pressure 110/57 L 103/57 L Pulse Oximetry 96 01/26/22 04:30 Pulse Rate 60 Respiratory Rate 20 Blood Pressure Pulse Oximetry 96 <Sarah Valero DO - Last Filed: 01/26/22 19:26> Orders Ordered: Discontinued Medications Amiodarone HCl/Dextrose (Nexterone) 150 mg in 100 mls @ 600 mls/hr IV NOW ONE; Protocol Stop: 01/25/22 18:08 Last Infusion: 01/25/22 18:59 Dose: 0 mls/hr Documented By: Admin: 01/25/22 18:39 Dose: 600 mls/hr Documented By: CATRACHITA Amiodarone HCl/Dextrose (Nexterone) 360 mg in 200 mls @ 33.333 mls/hr IV NOW ONE; Protocol Stop: 01/26/22 01:34 Last Titration: 01/26/22 02:10 Dose: 0 ml/hr, 0 mls/hr Documented By: Admin: 01/25/22 19:39 Dose: 33 ml/hr, 33 mls/hr Documented By: CATRACHITA Amiodarone HCl/Dextrose (Nexterone) 540 mg in 300 mls @ 16.7 mls/hr IV CONT LESTER; Protocol Stop: 01/26/22 20:13 Amiodarone HCl/Dextrose (Nexterone) 360 mg in 200 mls @ 16.7 mls/hr IV CONT LESTER; Protocol Stop: 01/26/22 14:44 Last Admin: 01/26/22 02:53 Dose: 16.7 ml/hr, 16.7 mls/hr Documented By: AP Vital Signs Vital signs: Vital Signs - 8 hr 01/25/22 21:00 01/25/22 21:00 01/25/22 21:05 Pulse Rate 60 61 Respiratory Rate 12 14 Blood Pressure 114/57 L Pulse Oximetry 98 97 01/25/22 21:10 01/25/22 21:15 01/25/22 21:15 Pulse Rate 63 69 Respiratory Rate 20 12 Blood Pressure 133/64 Pulse Oximetry 96 99 01/25/22 21:20 01/25/22 21:30 01/25/22 21:30 Pulse Rate 60 60 Respiratory Rate 19 13 Blood Pressure 105/55 L Pulse Oximetry 97 95 01/25/22 22:00 01/25/22 22:00 01/25/22 22:30 Pulse Rate 60 Respiratory Rate 22 Blood Pressure 105/59 L 109/57 L Pulse Oximetry 94 01/25/22 22:30 01/25/22 23:00 01/25/22 23:00 Pulse Rate 60 60 Respiratory Rate 24 18 Blood Pressure 112/61 Pulse Oximetry 95 95 01/25/22 23:30 01/25/22 23:30 01/26/22 00:00 Pulse Rate 60 Respiratory Rate 17 Blood Pressure 110/55 L 115/59 L Pulse Oximetry 95 01/26/22 00:00 01/26/22 00:30 01/26/22 00:30 Pulse Rate 60 60 Respiratory Rate 12 20 Blood Pressure 103/57 L Pulse Oximetry 96 94 01/26/22 01:00 01/26/22 01:00 01/26/22 01:30 Pulse Rate 60 Respiratory Rate 48 H Blood Pressure 109/58 L 109/57 L Pulse Oximetry 97 01/26/22 01:30 01/26/22 02:00 01/26/22 02:00 Pulse Rate 60 60 Respiratory Rate 22 19 Blood Pressure 100/57 L Pulse Oximetry 98 97 01/26/22 02:30 01/26/22 02:30 01/26/22 03:00 Pulse Rate 61 Respiratory Rate 20 Blood Pressure 123/58 L 93/54 L Pulse Oximetry 98 01/26/22 03:00 01/26/22 03:30 01/26/22 03:30 Pulse Rate 60 61 Respiratory Rate 22 25 H Blood Pressure 113/61 Pulse Oximetry 96 97 01/26/22 04:00 01/26/22 04:00 01/26/22 04:30 Pulse Rate 60 Respiratory Rate 13 Blood Pressure 110/57 L 103/57 L Pulse Oximetry 96 01/26/22 04:30 Pulse Rate 60 Respiratory Rate 20 Blood Pressure Pulse Oximetry 96 MDM - Neuro Symptoms/Deficit <Saul MckeonDO - Last Filed: 01/28/22 04:28> Lab Data Result diagrams: 01/25/22 16:00 01/25/22 16:00 Labs: Lab Results 01/25/22 01/25/22 01/25/22 Range/Units 16:00 16:00 16:00 WBC 7.2 (4.5-11.0) X10^3/uL RBC 4.94 (4.5-5.9) X10^6/uL Hgb 14.8 (13.5-17.5) g/dL Hct 44.3 (41-53) % MCV 89.8 (80-100) fL MCH 30.0 (26-34) PG MCHC 33.4 (30-36) % RDW 13.4 (11.6-14.8) % Plt Count 202 (150-400) X10^3/uL Neut % (Auto) 53.7 (50-75) % Lymph % (Auto) 33.4 (25-40) % [place] % (Auto) 7.7 (3-14) % Eos % (Auto) 4.5 H (2-4) % Baso % (Auto) 0.7 (0-2) % Neut # (Auto) 3900 (7787-7106) /uL Lymph # (Auto) 2400 (9583-6239) /uL [place] # (Auto) 600 (0-900) /uL Eos # (Auto) 300 (0-450) /uL Baso # (Auto) 100 (0-100) /uL PT 27.9 H (10.1-12.7) SECONDS INR 2.4 H (0.9-1.3) Sodium 140 (137-145) mmol/L Potassium 3.8 (3.4-5.1) mmol/L Chloride 103 (98-107) mmol/L Carbon Dioxide 27 (22-32) mmol/L BUN 12 (9-20) mg/dL Creatinine 1.08 (0.66-1.25) mg/dL Estimated GFR > 60 (>60) mL/min BUN/Creatinine Ratio 11.1 (6-22) Glucose 104 (80-110) mg/dL Calcium 9.1 (8.4-10.2) mg/dL Magnesium 2.0 (1.6-2.3) mg/dL Total Bilirubin 1.3 (0.2-1.3) mg/dL AST 31 (17-59) IU/L ALT 19 (<50) IU/L Alkaline Phosphatase 74 (38-126) U/L Total Creatine Kinase 170 (55-170) U/L CK-MB (CK-2) 4.01 H (<2.37) ng/mL CK-MB (CK-2) Rel Index 2.4 (1.5-5.0) % Troponin I < 0.012 (0.01-0.034) ng/mL NT-Pro-B Natriuret Pep 456 H (<125) pg/mL Total Protein 8.3 H (6.3-8.2) g/dL Albumin 4.5 (3.5-5.0) g/dL Globulin 3.8 (1.7-4.1) g/dL Albumin/Globulin Ratio 1.2 (1.0-2.8) SARS-CoV-2 (PCR) (Negative) 01/25/22 Range/Units 18:33 WBC (4.5-11.0) X10^3/uL RBC (4.5-5.9) X10^6/uL Hgb (13.5-17.5) g/dL Hct (41-53) % MCV (80-100) fL MCH (26-34) PG MCHC (30-36) % RDW (11.6-14.8) % Plt Count (150-400) X10^3/uL Neut % (Auto) (50-75) % Lymph % (Auto) (25-40) % [place] % (Auto) (3-14) % Eos % (Auto) (2-4) % Baso % (Auto) (0-2) % Neut # (Auto) (8719-2237) /uL Lymph # (Auto) (9112-3836) /uL [place] # (Auto) (0-900) /uL Eos # (Auto) (0-450) /uL Baso # (Auto) (0-100) /uL PT (10.1-12.7) SECONDS INR (0.9-1.3) Sodium (137-145) mmol/L Potassium (3.4-5.1) mmol/L Chloride (98-107) mmol/L Carbon Dioxide (22-32) mmol/L BUN (9-20) mg/dL Creatinine (0.66-1.25) mg/dL Estimated GFR (>60) mL/min BUN/Creatinine Ratio (6-22) Glucose (80-110) mg/dL Calcium (8.4-10.2) mg/dL Magnesium (1.6-2.3) mg/dL Total Bilirubin (0.2-1.3) mg/dL AST (17-59) IU/L ALT (<50) IU/L Alkaline Phosphatase (38-126) U/L Total Creatine Kinase (55-170) U/L CK-MB (CK-2) (<2.37) ng/mL CK-MB (CK-2) Rel Index (1.5-5.0) % Troponin I (0.01-0.034) ng/mL NT-Pro-B Natriuret Pep (<125) pg/mL Total Protein (6.3-8.2) g/dL Albumin (3.5-5.0) g/dL Globulin (1.7-4.1) g/dL Albumin/Globulin Ratio (1.0-2.8) SARS-CoV-2 (PCR) Negative (Negative) Urine Dip Bedside Urine Glucose Negative Bedside Urine Bilirubin - Negative Bedside Urine Ketone - Negative Urine Specific [place] 1.010 Bedside Urine Occult Blood - Negative Bedside Urine pH 6.0 Bedside Urine Protein - Negative Bedside Urine Urobilinogen - Negative Bedside Urine Nitrite - Negative Bedside Urine Leukocytes - Negative Esterase Imaging Data CT scan - head: Radiologist's Impression: [address] [address] [address] Scan Report Signed Patient: Luis Mckeon MR#: [id number] : 1950 Acct:[id number] Age/Sex: 71 / M Date of Service: 01/25/22 Loc: ED Accession Number: [id number] ?? Procedure: CT head/brain wo con Ordering Provider: Saul Mckeon D.O. PROCEDURE:? CT HEAD/BRAIN WO CON ? INDICATIONS:? slurred speech ? TECHNIQUE:? Noncontrast 4.5 mm thick angled axial sections acquired from the foramen magnum to the vertex, with coronal and sagittal reformats.? For radiation dose reduction, the following was used:? automated exposure control, adjustment of mA and/or kV according to patient size.? ? COMPARISON:? Merged With [facility], CT, CT ANGIO HEAD AND NECK, 11/17/2021, 11:30.? Merged With [facility], CT, CT STROKE, 11/17/2021, 11:30. ? FINDINGS:? Image quality:? Excellent.? ? CSF spaces:? Basal cisterns are patent.? No extra-axial fluid collections.? The ventricles are symmetric in size and shape.? ? Brain:? No intracranial bleeds or masses.? There is cerebral volume loss for age, with resultant ventricular and sulcal prominence.? There are periventricular and deep white matter chronic small vessel ischemic changes.? There is intracranial internal carotid artery atherosclerosis.? ? Skull and face:? Calvarium and visualized facial bones appear intact, without suspicious lesions.? ? Sinuses:? Visualized sinuses and mastoids are clear.? ? ? IMPRESSION:? No significant noncontrast head CT abnormality can be seen. ? If there is strong clinical suspicion for an acute stroke, please consider a brain MRI for further evaluation, as it is more sensitive (assuming that there is no contraindication to MRI). ? ? Dictated by: Rosalio Mares M.D. on 01/25/2022 at 15:33 ? ? Approved by: Rosalio Mares M.D. on 01/25/2022 at 15:34 ? CTA - brain/neck: Radiologist's Impression: [address] [address] [address] Scan Report Signed Patient: Luis Mckeon MR#: [id number] : 1950 Acct:[id number] Age/Sex: 71 / M Date of Service: 01/25/22 Loc: ED Accession Number: [id number] ?? Procedure: CT angio head and neck Ordering Provider: [place],Saul D.O. PROCEDURE:? CT ANGIO HEAD AND NECK ? INDICATIONS:? speech deficit, facial weakness, numbness ? TECHNIQUE:? Noncontrast images were performed earlier in the day and not repeated.? ? After the administration of intravenous contrast, 1 mm thick sections acquired from the aortic arch through the [place] of [place].? Post-contrast 4.5 mm thick sections then re-acquired from the foramen magnum to the vertex.? 3-dimensional tmtbqjp-xonadwpbz-pzzyrcfdev (MIP) and/or volume rendering reformats were acquired of the central intracranial vasculature and neck separately. For radiation dose reduction, the following was used:? automated exposure control, adjustment of mA and/or kV according to patient size.? ? COMPARISON:? Merged With [facility], CT, CT HEAD/BRAIN WO CON, 01/25/2022, 16:26.? Merged With [facility], CT, CT ANGIO HEAD AND NECK, 11/17/2021, 11:30. ? FINDINGS:? Image quality:? Within normal limits ? BRAIN:? CSF spaces:? Ventricles are normal in size and shape.? Basal cisterns are patent.? No extra-axial fluid collections.? ? Brain:? No midline shift.? No intracranial bleeds or masses.? Chen-white matter interface appears intact.? ? Skull and face:? Calvarium and facial bones appear intact, without suspicious lesions.? Orbits appear normal.? ? Sinuses:? Sinuses and mastoids are clear.? ? HEAD CT ANGIOGRAPHY:? Anterior circulation:? Intracranial internal carotid arteries are normal in size and flow.? The flow within the paired anterior cerebral arteries is normal and symmetric.? The flow within the middle cerebral arteries is normal and symmetric.? The anterior communicating artery is seen.? No aneurysms are seen.? ? Posterior circulation:? Visualized portions of the vertebral arteries demonstrate normal caliber, and join to form a normal appearing basilar artery.? Flow within the posterior cerebral arteries is normal and symmetric.? No aneurysms are seen.? ? NECK CT ANGIOGRAPHY:? Carotid system:? Incidental note is made of a common origin of the right brachiocephalic artery and the left common carotid artery (bovine type arch). This is considered to be a developmental variant of no clinical consequence. The origins of the common carotid arteries appear patent.? The common carotid arteries demonstrate normal caliber and courses.? The bifurcation regions are both widely patent.? The internal carotid arteries demonstrate normal calibers and courses.? ? Posterior circulation:? The origins of the vertebral arteries both appear widely patent.? The more superior extracranial portions of both vertebral arteries also demonstrate normal courses and calibers.? They join to form a normal appearing basilar artery.? ? Soft tissues:? Visualized neck soft tissues demonstrate no suspicious abnormalities.? Left-sided pacer leads are seen. ? Bones:? No suspicious bony lesions.? Visualized cervical spine appears normally aligned.? A sternotomy wire can be seen.? Moderate cervical spine degenerative change can be seen. ? ? IMPRESSION:? No significant intracranial arterial abnormality is seen.? ? Within the arteries of the neck, no hemodynamically significant stenosis can be seen. ? Incidental note is made of: Bovine type aortic branching pattern Sternotomy wire Left-sided pacer leads Moderate cervical spine degenerative change ? Any quantitative measurements of stenosis were performed using NASCET criteria.? ? ? Dictated by: Rosalio Mares M.D. on 01/25/2022 at 15:47 ? ? Approved by: Rosalio Mares M.D. on 01/25/2022 at 15:49 ? MDM Narrative Medical decision making narrative: 1800 - calls to [place], , [facility], [facility], on lists. Call to [facility], put patient on list <Sarah Valero DO - Last Filed: 01/26/22 19:26> Lab Data Labs: Lab Results 01/25/22 01/25/22 01/25/22 Range/Units 16:00 16:00 16:00 WBC 7.2 (4.5-11.0) X10^3/uL RBC 4.94 (4.5-5.9) X10^6/uL Hgb 14.8 (13.5-17.5) g/dL Hct 44.3 (41-53) % MCV 89.8 (80-100) fL MCH 30.0 (26-34) PG MCHC 33.4 (30-36) % RDW 13.4 (11.6-14.8) % Plt Count 202 (150-400) X10^3/uL Neut % (Auto) 53.7 (50-75) % Lymph % (Auto) 33.4 (25-40) % [place] % (Auto) 7.7 (3-14) % Eos % (Auto) 4.5 H (2-4) % Baso % (Auto) 0.7 (0-2) % Neut # (Auto) 3900 (1897-3041) /uL Lymph # (Auto) 2400 (7948-0317) /uL [place] # (Auto) 600 (0-900) /uL Eos # (Auto) 300 (0-450) /uL Baso # (Auto) 100 (0-100) /uL PT 27.9 H (10.1-12.7) SECONDS INR 2.4 H (0.9-1.3) Sodium 140 (137-145) mmol/L Potassium 3.8 (3.4-5.1) mmol/L Chloride 103 (98-107) mmol/L Carbon Dioxide 27 (22-32) mmol/L BUN 12 (9-20) mg/dL Creatinine 1.08 (0.66-1.25) mg/dL Estimated GFR > 60 (>60) mL/min BUN/Creatinine Ratio 11.1 (6-22) Glucose 104 (80-110) mg/dL Calcium 9.1 (8.4-10.2) mg/dL Magnesium 2.0 (1.6-2.3) mg/dL Total Bilirubin 1.3 (0.2-1.3) mg/dL AST 31 (17-59) IU/L ALT 19 (<50) IU/L Alkaline Phosphatase 74 (38-126) U/L Total Creatine Kinase 170 (55-170) U/L CK-MB (CK-2) 4.01 H (<2.37) ng/mL CK-MB (CK-2) Rel Index 2.4 (1.5-5.0) % Troponin I < 0.012 (0.01-0.034) ng/mL NT-Pro-B Natriuret Pep 456 H (<125) pg/mL Total Protein 8.3 H (6.3-8.2) g/dL Albumin 4.5 (3.5-5.0) g/dL Globulin 3.8 (1.7-4.1) g/dL Albumin/Globulin Ratio 1.2 (1.0-2.8) SARS-CoV-2 (PCR) (Negative) 01/25/22 Range/Units 18:33 WBC (4.5-11.0) X10^3/uL RBC (4.5-5.9) X10^6/uL Hgb (13.5-17.5) g/dL Hct (41-53) % MCV (80-100) fL MCH (26-34) PG MCHC (30-36) % RDW (11.6-14.8) % Plt Count (150-400) X10^3/uL Neut % (Auto) (50-75) % Lymph % (Auto) (25-40) % [place] % (Auto) (3-14) % Eos % (Auto) (2-4) % Baso % (Auto) (0-2) % Neut # (Auto) (9931-3190) /uL Lymph # (Auto) (5428-1341) /uL [place] # (Auto) (0-900) /uL Eos # (Auto) (0-450) /uL Baso # (Auto) (0-100) /uL PT (10.1-12.7) SECONDS INR (0.9-1.3) Sodium (137-145) mmol/L Potassium (3.4-5.1) mmol/L Chloride (98-107) mmol/L Carbon Dioxide (22-32) mmol/L BUN (9-20) mg/dL Creatinine (0.66-1.25) mg/dL Estimated GFR (>60) mL/min BUN/Creatinine Ratio (6-22) Glucose (80-110) mg/dL Calcium (8.4-10.2) mg/dL Magnesium (1.6-2.3) mg/dL Total Bilirubin (0.2-1.3) mg/dL AST (17-59) IU/L ALT (<50) IU/L Alkaline Phosphatase (38-126) U/L Total Creatine Kinase (55-170) U/L CK-MB (CK-2) (<2.37) ng/mL CK-MB (CK-2) Rel Index (1.5-5.0) % Troponin I (0.01-0.034) ng/mL NT-Pro-B Natriuret Pep (<125) pg/mL Total Protein (6.3-8.2) g/dL Albumin (3.5-5.0) g/dL Globulin (1.7-4.1) g/dL Albumin/Globulin Ratio (1.0-2.8) SARS-CoV-2 (PCR) Negative (Negative) Urine Dip Bedside Urine Glucose Negative Bedside Urine Bilirubin - Negative Bedside Urine Ketone - Negative Urine Specific [place] 1.010 Bedside Urine Occult Blood - Negative Bedside Urine pH 6.0 Bedside Urine Protein - Negative Bedside Urine Urobilinogen - Negative Bedside Urine Nitrite - Negative Bedside Urine Leukocytes - Negative Esterase MDM Narrative Medical decision making narrative: 1800 - calls to [place] , [facility], [facility] beds, on lists. Call to [facility], put patient on list Patient signed out to me by Dr. Mckeon. Patient is a 71-year-old male history of aortic valve replacement on Coumadin presents today after V-fib and his AICD discharge. [facility] the emergency department developed stroke-like symptoms with worsening aphasia and dysarthria. He previously had a stroke with left-sided deficits. Patient's symptoms though started improving while in the ED. Patient was placed on amiodarone drip for V-fib. Patient needs higher level of care with significant cardiac history and new neurologic deficits. His likely had embolic event after his cardioversion. He is already anticoagulated on Coumadin this is his 2nd stroke in less than [address] Matthews accepts at [facility] <Sarah Valero, - Last Filed: 01/26/22 19:26> Critical Care Time Critical Care Time: Yes Total Critical Care Time: 45 Attestation: The high probability of a clinically significant, sudden or life threatening deterioration of the [cardiovascular] system(s) required my full and direct attention, intervention and personal management. The aggregate critical care time was [45] minutes. This time is in addition to time spent performing reported procedures but includes the following: [x] Data Review and interpretation [x] Patient assessment and monitoring of vital signs [x] Documentation [x] Medication orders and management Discharge Plan Departure Patient Disposition: [facility] Clinical Impression: V tach, Stroke, AICD discharge Prescriptions: No Action nitroglycerin 0.3 mg tablet, sublingual 0.3 mg sublingual Q5MIN PRN (Reason: Chest Pain) Label Comments: Place 1 tablet (0.3 mg total) under the tongue every 5 (five) min...(REFER TO PRESCRIPTION NOTES). metoprolol succinate 25 mg tablet extended release 24 hr 25 mg PO DAILY Label Comments: take 1 AND 1/2 tablets by mouth once daily warfarin 1 mg tablet 2 mg PO SEEINSTR Label Comments: take 2 tablets by mouth once daily EXCEPT MONDAY AND MONDAY TAKE 1MG Rx Instructions: take 2 tablets by mouth once daily EXCEPT MONDAY AND MONDAY TAKE 1MG warfarin 1 mg tablet 1 mg PO SEEINSTR Label Comments: take 2 tablets by mouth once daily EXCEPT MONDAY AND MONDAY TAKE 1MG Rx Instructions: take 2 tablets by mouth once daily EXCEPT MONDAY AND MONDAY TAKE 1MG oxycodone 5 mg tablet 5 mg PO Q8HR PRN (Reason: Pain (Scale Score 4-6)) Label Comments: take 1 tablet by mouth twice a day Entresto 24-26 mg tablet 0.5 tab PO BID Label Comments: take 1/2 tablet by mouth twice a day Referrals: Mohini cD ARNP [Primary Care Provider] -
[2022-01-25] MEDS: AMIODARONE 150 MG/100 ML PIGGYBACK 600 MG IV (18:39)
[2022-01-25 19:32] LABS: COVID19 -Nasal RAPID Negative (Negative)
[2022-01-25] MEDS: AMIODARONE 360 MG/200 ML PIGGYBACK 33 MG IV (19:39)
--- NOTE | 2022-01-25 21:24 | PC.NURSE ---
pt is speaking more clearly than earlier. helped to take off pants and shoes, pt appears more able to move legs and limbs than earlier. used urinal in bed with minimal help.
[2022-01-26] VITALS (18 sets, daily range): BP systolic 93–127; BP diastolic 54–80; PULSE 60–61; RESP 12–48; O2SAT 94–98
[2022-01-26] MEDS: AMIODARONE 360 MG/200 ML PIGGYBACK 16.7 MG IV (02:53)
== END 2022-01-26 08:54 | disposition short-term general hospital (02) ==
PROVIDERS: Emergency Medicine; Emergency Provider Emergency Medicine; PCP Nurse Practitioner Family
DX: I47.20 Ventricular tachycardia, unspecified (principal); I63.9 Cerebral infarction, unspecified; R07.9 Chest pain, unspecified; R47.81 Slurred speech; Z79.01 Long term (current) use of anticoagulants; Z45.02 Encounter for adjustment and management of automatic implantable cardiac defibrillator; Z20.822 Contact with and (suspected) exposure to COVID-19
CPT/HCPCS: 36415; 70450; 70496; 70498; 80053; 81003; 82550; 82553; 83735; 83880; 84484; 85025; 85610; 87635; 93005; 96365; 96366; 99285; 99291; C9803; J0282

== ENCOUNTER 2023-01-25 14:30 | Observation (INO) | payer MEDICARE, SELFPAY ==
[2021-11-17 18:20] VITALS: BMI 28.1
[2023-01-25] VITALS (62 sets, daily range): BP systolic 107–145; BP diastolic 53–112; PULSE 60–86; RESP 10–24; TEMP 36.3–36.4; O2SAT 95–100; BMI 27.4
--- NOTE | 2023-01-25 14:44 | PC.NURSE ---
Pacemaker interrogated at [phone], [employer] [phone]. Awaiting faxed report. Physician aware.
--- NOTE | 2023-01-25 14:48 | DI.RAD.S_ITS ---
PROCEDURE: XR CHEST 1V INDICATIONS: chest pain TECHNIQUE: One view of the chest was acquired. COMPARISON: [facility], CR, XR CHEST 1V, 11/17/2021, 11:37. FINDINGS: Surgical changes and devices: Pacemaker and sternal wires. Lungs and pleura: Lungs are clear. No pleural effusions or pneumothorax. Mediastinum: Mediastinal contours appear normal. Heart size is normal. Bones and chest wall: No suspicious bony lesions. Overlying soft tissues appear unremarkable. IMPRESSION: Portable chest within normal limits for age. Dictated by: Meghan Rock M.D. on 01/25/2023 at 15:36 Approved by: Meghan Rock M.D. on 01/25/2023 at 15:36
[2023-01-25 15:17] LABS: Add Manual Diff / Slide Review NO; Basophils Absolute Auto 100 /uL (0-100); Basophils Percent Auto 1.2 % (0-2); Eosinophils Absolute Auto 400 /uL (0-450); Eosinophils Percent Auto 4.7 % (2-4); Hematocrit 37.7 % (41-53); Hemoglobin 12.8 g/dL (13.5-17.5); Lymphocytes Absolute Auto 2200 /uL (1100-4500); Lymphocytes Percent Auto 25.9 % (25-40); Mean Corpuscular Hemoglobin 29.7 PG (26-34); Mean Corpuscular Volume 87.3 fL (80-100); Monocytes Absolute Auto 700 /uL (0-900); Neutrophils Absolute Auto 4900 /uL (1500-7000); Neutrophils Percent Auto 59.2 % (50-75); Platelet Count 237 X10^3/uL (150-400); Red Blood Cell Count 4.32 X10^6/uL (4.5-5.9); Red Cell Distribution Width 13.3 % (11.6-14.8); White Blood Cell Count 8.3 X10^3/uL (4.5-11.0)
[2023-01-25 15:18] LABS: INR 3.5 (0.9-1.3)
[2023-01-25 15:21] LABS: PTT Partial Thromboplastin Tim 51 SECONDS (26-36)
--- NOTE | 2023-01-25 15:22 | ED_ITS ---
HPI - Chest Pain General Chief Complaint: Chest Pain Stated Complaint: Chest Pain Time Seen by Provider: 01/25/23 15:12 Source: patient Mode of arrival: Ambulatory Limitations: no limitations Limitations: no limitations History of Present Illness HPI narrative: This 72 yo gentleman prevents by EMS after he experienced a defibrillation shock at home earlier today. He has history aortic valve replacement, as well as defibrillator. The defibrillator last discharged about 1 year ago. He was walking through her living room when he sustained the shock. He did not fall, he was able to get to a couch. He says he has been having intermittent chest pain for weeks. She is pain is in left anterior chest, it does not radiate. He is no associated palpitations or dyspnea without chest pain. He is having no chest pain at the time of arrival here. He denies dyspnea. He denies recent illness. He denies congestion, headache, or sore throat. He is not coughing. 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 Echo about 11/17/2021 showed EF of 50-55%, no significant LV dysfunction. He has a mechanical aortic valve. He is anticoagulated with warfarin.. Related Data Home Medications Medication Instructions Recorded Confirmed metoprolol succinate 25 mg 25 mg PO DAILY 06/23/20 11/17/21 tablet,extended release 24 hr nitroglycerin 0.3 mg sublingual 0.3 mg sublingual Q5MIN PRN Chest 06/23/20 11/17/21 tablet Pain oxycodone 5 mg tablet 5 mg PO Q8HR PRN Pain (Scale Score 06/23/20 11/17/21 4-6) sacubitril 24 mg-valsartan 26 mg 0.5 tab PO BID 06/23/20 11/17/21 tablet (Entresto) warfarin 1 mg tablet 1 mg PO SEEINSTR 06/23/20 11/17/21 warfarin 1 mg tablet 2 mg PO SEEINSTR 06/23/20 11/17/21 Allergies Allergy/AdvReac Type Severity Reaction Status Date / Time No Known Drug Allergies Allergy Verified 11/17/21 11:19 Review of Systems Review of Systems ROS Unobtainable: All systems reviewed & are unremarkable except as noted in HPI and below Constitutional Constitutional: Denies body ache(s), Denies chills, Denies fever(s) and Denies headache(s) Comments: No recent illness. ENT Ears, Nose, Mouth, and Throat: Denies headache(s), Denies sinus pain and Denies sore throat Cardiovascular Cardiovascular: Reports as per HPI, Reports chest pain, Denies diaphoresis, Denies syncope, Denies rapid heart rate, Denies irregular heart rhythm and Denies dyspnea Respiratory Respiratory: Denies chest congestion, Denies cough and Denies dyspnea Gastrointestinal Gastrointestinal: Denies abdominal pain, Denies diarrhea and Denies nausea Musculoskeletal Musculoskeletal: Denies back pain and Denies muscle weakness Integumentary/Breasts Skin/Breast: Denies lesions and Denies wounds Neurologic Neurologic: Denies behavioral changes, Denies syncope and Denies headache(s) Comments: Prior history of CVA. Right weakness. He is ambulatory. Psychiatric Psychiatric: Denies anxiety and Denies behavioral changes Hematologic/Lymphatic On Anticoagulants: Yes Patient History Medical History HTN (hypertension) Chronic pain Kidney stones Ascending aortic aneurysm Acute calculous cholecystitis Surgical History S/P CABG (coronary artery bypass graft) S/P AVR (aortic valve replacement) and aortoplasty AICD (automatic cardioverter/defibrillator) present Status post laparoscopic cholecystectomy Family History Mother Diabetes mellitus Father Diabetes mellitus Social History household members: spouse and children Smoking Status: Never smoker alcohol intake: current Smoking Status: Never smoker alcohol intake frequency: holidays/special occasions only Substance Use Type: does not use Exam Initial Vital Signs Initial Vital Signs: Vital Signs Pulse Rate 72 01/25/23 14:36 Respiratory Rate 24 01/25/23 14:36 Blood Pressure 122/75 01/25/23 14:36 Pulse Oximetry 100 01/25/23 14:36 Const General: cooperative, comfortable and well groomed Nutritional Appearance: average body habitus [facility] Head: normocephalic and atraumatic Face and sinus: normal facial exam Mouth: oral mucosae normal Throat: posterior oropharynx normal Eyes General: Yes appearance normal, both eyes and all related structures Neck Neck: normal visual inspection Resp Effort & Inspection: normal respiratory effort Auscultation: clear to auscultation bilaterally Cardio Palpation: normal PMI Rate: regular rate Rhythm: regular rhythm Heart Sounds: S1 normal, S2 normal and murmur (4/6 holosystolic murmur) Bruits: no carotid bruits GI Inspection: normal to inspection Palpation: soft and No tender Auscultation: normal bowel sounds Back/Spine/Pelvis Back: normal to inspection and No back tenderness Skin General: no rashes or lesions noted Neuro General: patient alert, patient awake, patient oriented x3 and moves all extremities Extrem General: normal to inspection, full ROM, no pedal edema and no calf tenderness Psych Appearance: grossly normal Course Orders Ordered: ED Orders 01/25/23 14:34 Complete Blood Count AUTO DIFF Stat Comprehensive Metabolic Panel Stat Lipase Stat Magnesium Stat PTT Partial Thromboplastin Raad Stat Prothrombin Time INR Stat Troponin & CK Cardiac Panel Stat 01/25/23 14:37 EKG-12 Lead Stat 01/25/23 14:48 XR chest 1V Stat 01/25/23 17:55 Urinalysis and Microscopic Stat Urine Culture Stat Acetaminophen (Acetaminophen 325 Mg Tablet) 650 mg PO Q6H PRN PRN Reason: Fever/Mild Pain (1-3) Al Hydrox/Mg Hydrox/Simethicone (Mag Hydrox/Alum/Simeth 30 Ml Udc) 30 ml PO Q6HR PRN PRN Reason: Dyspepsia Metoprolol Succinate (Metoprolol Er 25 Mg Tablet) 25 mg PO DAILY LESTER Naloxone HCl (Naloxone 0.4 Mg/Ml Vial) 0.2 mg IV Q2MIN PRN PRN Reason: Opiate Reversal Nitroglycerin (Nitroglycerin 0.4 Mg Sl Tab) 0.4 mg SL [id number] PRN PRN Reason: Chest Pain Non-Formulary Medication (Sacubitril-Valsartan [Entresto]) 0.5 tab PO BID [facility] Ondansetron HCl (Ondansetron 4 Mg Odt) 4 mg PO Q8HR PRN PRN Reason: Nausea And Vomiting Oxycodone HCl (Oxycodone Ir 5 Mg Tablet) 5 mg PO Q8HR PRN PRN Reason: Pain (Scale Score 4-6) Discontinued Medications Potassium Chloride (Potassium Chloride 20 Meq/15 Ml Udc) 20 meq PO NOW ONE Stop: 01/25/23 16:31 Last Admin: 01/25/23 16:46 Dose: 20 meq Documented By: CATRACHITA Vital Signs Vital signs: Vital Signs - 8 hr 01/25/23 14:36 01/25/23 14:36 01/25/23 14:41 Temperature Pulse Rate 72 Respiratory Rate 24 Blood Pressure 122/75 144/68 H Pulse Oximetry 100 Oxygen Delivery Method 01/25/23 14:41 01/25/23 14:42 01/25/23 14:45 Temperature 97.4 F L Pulse Rate 71 80 71 Respiratory Rate 19 20 21 Blood Pressure 130/80 Pulse Oximetry 100 97 100 Oxygen Delivery Method Room Air 01/25/23 14:45 01/25/23 14:50 01/25/23 14:50 Temperature Pulse Rate 71 Respiratory Rate 17 Blood Pressure 133/60 130/59 L Pulse Oximetry 100 Oxygen Delivery Method 01/25/23 14:55 01/25/23 14:55 01/25/23 15:00 Temperature Pulse Rate 70 75 Respiratory Rate 12 20 Blood Pressure 115/60 Pulse Oximetry 100 100 Oxygen Delivery Method 01/25/23 15:01 01/25/23 15:01 01/25/23 15:03 Temperature Pulse Rate 86 Respiratory Rate 20 Blood Pressure 132/112 H 132/60 Pulse Oximetry 99 Oxygen Delivery Method 01/25/23 15:03 01/25/23 15:05 01/25/23 15:05 Temperature Pulse Rate 72 68 Respiratory Rate 14 15 Blood Pressure 126/63 Pulse Oximetry 100 99 Oxygen Delivery Method 01/25/23 15:10 01/25/23 15:10 01/25/23 15:16 Temperature Pulse Rate 67 76 Respiratory Rate 14 23 Blood Pressure 129/63 Pulse Oximetry 98 95 Oxygen Delivery Method 01/25/23 15:16 01/25/23 15:20 01/25/23 15:20 Temperature Pulse Rate 67 Respiratory Rate 15 Blood Pressure 130/80 145/66 H Pulse Oximetry 97 Oxygen Delivery Method 01/25/23 15:26 01/25/23 15:26 01/25/23 15:30 Temperature Pulse Rate 66 71 Respiratory Rate 16 15 Blood Pressure 125/64 Pulse Oximetry 95 96 Oxygen Delivery Method 01/25/23 15:30 01/25/23 15:35 01/25/23 15:35 Temperature Pulse Rate 65 Respiratory Rate 16 Blood Pressure 136/64 117/60 Pulse Oximetry 96 Oxygen Delivery Method 01/25/23 15:40 01/25/23 15:40 01/25/23 15:50 Temperature Pulse Rate 64 64 Respiratory Rate 16 13 Blood Pressure 112/58 L Pulse Oximetry 96 96 Oxygen Delivery Method 01/25/23 15:50 01/25/23 15:55 01/25/23 15:55 Temperature Pulse Rate 64 Respiratory Rate 12 Blood Pressure 113/58 L 120/58 L Pulse Oximetry 96 Oxygen Delivery Method 01/25/23 16:00 01/25/23 16:01 01/25/23 16:01 Temperature Pulse Rate 64 64 Respiratory Rate 13 12 Blood Pressure 118/53 L Pulse Oximetry 96 96 Oxygen Delivery Method 01/25/23 16:06 01/25/23 16:06 01/25/23 16:10 Temperature Pulse Rate 70 70 Respiratory Rate 13 13 10 L Blood Pressure 118/56 L Pulse Oximetry 96 96 Oxygen Delivery Method 01/25/23 16:10 01/25/23 16:15 01/25/23 16:15 Temperature Pulse Rate 65 Respiratory Rate 14 Blood Pressure 107/58 L 115/63 Pulse Oximetry 95 Oxygen Delivery Method 01/25/23 16:20 01/25/23 16:20 01/25/23 16:25 Temperature Pulse Rate 66 Respiratory Rate 14 Blood Pressure 109/56 L 123/57 L Pulse Oximetry 96 Oxygen Delivery Method 01/25/23 16:25 01/25/23 16:30 01/25/23 16:30 Temperature Pulse Rate 68 63 Respiratory Rate 13 14 Blood Pressure 113/64 Pulse Oximetry 96 96 Oxygen Delivery Method 01/25/23 16:35 01/25/23 16:35 01/25/23 16:40 Temperature Pulse Rate 66 64 Respiratory Rate 13 12 Blood Pressure 118/59 L Pulse Oximetry 97 96 Oxygen Delivery Method 01/25/23 16:40 01/25/23 16:45 01/25/23 16:45 Temperature Pulse Rate 66 Respiratory Rate 16 Blood Pressure 107/56 L 109/56 L Pulse Oximetry 96 Oxygen Delivery Method 01/25/23 16:48 01/25/23 16:48 01/25/23 17:00 Temperature Pulse Rate 78 65 Respiratory Rate 16 16 Blood Pressure 109/63 Pulse Oximetry 97 97 Oxygen Delivery Method 01/25/23 17:00 01/25/23 17:10 01/25/23 17:20 Temperature Pulse Rate 65 67 Respiratory Rate 14 16 Blood Pressure 109/65 Pulse Oximetry 99 98 Oxygen Delivery Method 01/25/23 17:24 01/25/23 17:24 01/25/23 17:30 Temperature Pulse Rate 70 68 Respiratory Rate 13 12 Blood Pressure 115/55 L Pulse Oximetry 99 98 Oxygen Delivery Method 01/25/23 17:30 01/25/23 17:40 01/25/23 17:45 Temperature Pulse Rate 68 77 Respiratory Rate 13 12 Blood Pressure 111/55 L Pulse Oximetry 98 99 Oxygen Delivery Method 01/25/23 17:45 01/25/23 17:50 01/25/23 18:00 Temperature Pulse Rate 85 66 Respiratory Rate 15 13 Blood Pressure 130/61 125/60 Pulse Oximetry 100 97 Oxygen Delivery Method 01/25/23 18:10 01/25/23 18:20 01/25/23 18:30 Temperature Pulse Rate 64 64 61 Respiratory Rate 13 12 13 Blood Pressure 121/65 Pulse Oximetry 97 98 98 Oxygen Delivery Method 01/25/23 18:40 01/25/23 18:50 01/25/23 18:56 Temperature Pulse Rate 60 65 70 Respiratory Rate 12 14 12 Blood Pressure Pulse Oximetry 98 98 99 Oxygen Delivery Method 01/25/23 18:56 01/25/23 19:00 01/25/23 19:00 Temperature Pulse Rate 76 Respiratory Rate 21 Blood Pressure 107/58 L 109/65 Pulse Oximetry 99 Oxygen Delivery Method 01/25/23 19:10 01/25/23 19:15 01/25/23 19:15 Temperature Pulse Rate 69 75 Respiratory Rate 12 17 Blood Pressure 124/63 Pulse Oximetry 99 99 Oxygen Delivery Method 01/25/23 19:20 01/25/23 19:30 01/25/23 19:30 Temperature Pulse Rate 79 70 Respiratory Rate 18 13 Blood Pressure 138/66 Pulse Oximetry 99 97 Oxygen Delivery Method Room Air Room Air 01/25/23 19:40 01/25/23 19:45 01/25/23 19:45 Temperature Pulse Rate 71 64 Respiratory Rate 16 13 Blood Pressure 117/74 Pulse Oximetry 100 98 Oxygen Delivery Method Room Air Room Air 01/25/23 19:50 Temperature Pulse Rate 62 Respiratory Rate 17 Blood Pressure Pulse Oximetry 97 Oxygen Delivery Method Room Air MDM - Chest Pain Differential Diagnosis Differential diagnosis: Likely stable angina, unstable angina pectoris, atypical chest pain and chest pain Condition is at treatment goal?: Yes Discussed with:: Case was discussed with Cardiology, Dr. Tse in hospitalist, . Medical Records Data Attestation: I reviewed the patient's medical records. Lab Data 01/25/23 14:34 01/25/23 14:34 Labs: Lab Results 01/25/23 01/25/23 Range/Units 14:34 17:55 WBC 8.3 (4.5-11.0) X10^3/uL RBC 4.32 L (4.5-5.9) X10^6/uL Hgb 12.8 L (13.5-17.5) g/dL Hct 37.7 L (41-53) % MCV 87.3 (80-100) fL MCH 29.7 (26-34) PG MCHC 34.0 (30-36) % RDW 13.3 (11.6-14.8) % Plt Count 237 (150-400) X10^3/uL Neut % (Auto) 59.2 (50-75) % Lymph % (Auto) 25.9 (25-40) % [place] % (Auto) 9.0 (3-14) % Eos % (Auto) 4.7 H (2-4) % Baso % (Auto) 1.2 (0-2) % Neut # (Auto) 4900 (0051-2569) /uL Lymph # (Auto) 2200 (8849-0084) /uL [place] # (Auto) 700 (0-900) /uL Eos # (Auto) 400 (0-450) /uL Baso # (Auto) 100 (0-100) /uL PT 41.0 H (10.1-12.7) SECONDS INR 3.5 H (0.9-1.3) APTT 51 H (26-36) SECONDS Sodium 137 (137-145) mmol/L Potassium 3.5 (3.4-5.1) mmol/L Chloride 103 (98-107) mmol/L Carbon Dioxide 28 (22-32) mmol/L BUN 12 (9-20) mg/dL Creatinine 1.08 (0.66-1.25) mg/dL Estimated GFR > 60 (>60) mL/min BUN/Creatinine Ratio 11.1 (6-22) Glucose 88 (80-110) mg/dL Calcium 9.3 (8.4-10.2) mg/dL Magnesium 1.9 (1.6-2.3) mg/dL Total Bilirubin 1.1 (0.2-1.3) mg/dL AST 40 (17-59) IU/L ALT 45 (<50) IU/L Alkaline Phosphatase 69 (38-126) U/L Total Creatine Kinase 114 (55-170) U/L Troponin I 0.016 (0.01-0.034) ng/mL Total Protein 7.1 (6.3-8.2) g/dL Albumin 3.9 (3.5-5.0) g/dL Globulin 3.2 (1.7-4.1) g/dL Albumin/Globulin Ratio 1.2 (1.0-2.8) Lipase 116 (23-300) U/L Urine Color Yellow Urine Appearance Clear Urine pH 7.0 (4.5-8.0) Ur Specific [place] <=1.005 (1.000-1.035) Urine Protein Negative (Negative) Urine Glucose (UA) Negative (Negative) g/dL Urine Ketones Negative (NEGATIVE) Urine Occult Blood Negative (Negative) Urine Nitrate Negative (Negative) Urine Bilirubin Negative (NEGATIVE) Urine Urobilinogen 0.2 (0.2) E.U./dL Ur Leukocyte Esterase 1+ H (NEGATIVE) Urine RBC 0-1/hpf (0-5/HPF) Urine WBC 1-5/hpf (0-5/HPF) Ur Squamous Epith Cells 0-1 /hpf (0-5/HPF) Urine Bacteria Few (2-10) H (None) Ur Culture Indicated? Specimen cultured Urine Dip Bedside Urine Glucose Negative Bedside Urine Bilirubin - Negative Bedside Urine Ketone - Negative Urine Specific [place] 1.005 Bedside Urine Occult Blood - Negative Bedside Urine pH 7.0 Bedside Urine Protein - Negative Bedside Urine Urobilinogen - Negative Bedside Urine Nitrite - Negative Bedside Urine Leukocytes +/- 15 Esterase Imaging Data Chest x-ray: Radiologist's Impression: PROCEDURE: XR CHEST 1V INDICATIONS: chest pain TECHNIQUE: One view of the chest was acquired. COMPARISON: [facility], CR, XR CHEST 1V, 11/17/2021, 11:37. FINDINGS: Surgical changes and devices: Pacemaker and sternal wires. Lungs and pleura: Lungs are clear. No pleural effusions or pneumothorax. Mediastinum: Mediastinal contours appear normal. Heart size is normal. Bones and chest wall: No suspicious bony lesions. Overlying soft tissues appear unremarkable. IMPRESSION: Portable chest within normal limits for age. ECG Data Attestation: I personally reviewed and interpreted this ECG as follows: (Paced rhythm rate 77 beats per minute. Frequent PVCs. No acute ST elevation. probe operator reveals frequent PVCs.) MDM Narrative Medical decision making narrative: Patient's pacer was queried. Defibrillation was confirmed. He was asymptomatic upon arrival. He has no significant EKG changes. Chest x-ray is clear. Troponin is negative. Potassium was low normal, magnesium level is normal. He has been asymptomatic and stable throughout his ER stay. I discussed the situation with Dr. Tse, cardiology. Admission with stress test was recommended. When approached the patient with this proposition, he and his started laughing. They informed me that he had a nuclear stress test about 1 year ago at [facility] in [facility]. He apparently had a significant reaction to the injection. We have no records of that event available here at this time. The hospitalist has already conditional accepted the patient. Further conversation with Dr. Tse, he continues to suggest admission with monitoring, and an echo tomorrow morning. We will obtain records from [facility] to have more detail to this reaction and to see if there is still inability to do a nuclear study. , hospitalist was again contacted. He agrees to observation admission. Echo will be ordered. The ER [employer] has requested the records. Critical Care Time Critical Care Time Critical Care Time: Yes Total Critical Care Time: 40 Attestation: Time included initial patient assessment. I have reviewed his medical records. I reviewed lab, x-ray and EKG data. Multiple conversations as detailed above occurred. I kept the patient breast of his situation and decision-making at all times. He will be admitted observation. Discharge Plan Departure Patient Disposition: Admitted as Observation Clinical Impression: AICD discharge Chest pain Qualifiers: Chest pain type: unspecified Qualified Code(s): R07.9 - Chest pain, unspecified Admit Date/Time: 01/25/23 19:52 Admit Provider: Phillip Babcock
[2023-01-25 15:35] LABS: Alanine Aminotransferase 45 IU/L (<50); Albumin 3.9 g/dL (3.5-5.0); Albumin Globulin Ratio 1.2 (1.0-2.8); Alkaline Phosphatase 69 U/L (38-126); Aspartate Aminotransferase 40 IU/L (17-59); BUN Creatinine Ratio 11.1 (6-22); Bilirubin Total 1.1 mg/dL (0.2-1.3); Blood Urea Nitrogen 12 mg/dL (9-20); Calcium 9.3 mg/dL (8.4-10.2); Carbon Dioxide 28 mmol/L (22-32); Chloride 103 mmol/L (98-107); Creatine Kinase 114 U/L (55-170); Estimated Glomerular Filt Rate > 60 mL/min (>60); Globulin 3.2 g/dL (1.7-4.1); Glucose 88 mg/dL (80-110); HEMOLYSIS < 15 (0-50); Lipase 116 U/L (23-300); Magnesium 1.9 mg/dL (1.6-2.3); Potassium 3.5 mmol/L (3.4-5.1); Sodium 137 mmol/L (137-145); Total Protein 7.1 g/dL (6.3-8.2)
[2023-01-25 15:47] LABS: Troponin I 0.016 ng/mL (0.01-0.034)
--- NOTE | 2023-01-25 16:00 | PC.NURSE ---
Pt's BP is running soft at times, HR within normal limits. Physician advised, no new orders.
[2023-01-25] MEDS: POTASSIUM CHLORIDE 20 MEQ/15 ML UDC PO (16:46)
[2023-01-25 18:10] LABS: Appearance Urine UA CLEAR; Bilirubin Urine UA NEGATIVE (NEGATIVE); Color Urine UA YELLOW; Glucose Urine UA NEGATIVE (Negative); Ketones Urine UA NEGATIVE (NEGATIVE); Leukocyte Esterase Urine UA 1+ (NEGATIVE); Nitrite Urine UA NEGATIVE (Negative); Occult Blood Urine UA NEGATIVE (Negative); Protein Urine UA NEGATIVE (Negative); Specific Gravity Urine UA <=1.005 (1.000-1.035); Urobilinogen Urine UA 0.2 E.U./dL (0.2)
[2023-01-25 18:22] LABS: Bacteria Urine Few (2-10); Culture Indicated Urine Specimen Cultured; RBC Urine 0-1/HPF (0-5/HPF); Squamous Epithelial Cell Urine 0-1 /HPF (0-5/HPF); WBC Urine 1-5/HPF (0-5/HPF)
--- NOTE | 2023-01-25 19:59 | DI.ECHO.S_ITS ---
[facility]---------+ [facility] +---------+ : : [id number] [place] : : : : [id number] : : : : Phone: [phone] Echocardiogram Report + + :Name: AWILDA NORWOOD Study Date: 01/26/2023 Height: 64 in : :[facility] ReadingLocation: Weight: 160 lb : : Gender: Male BSA: 1.8 m2 : :: 1950 Age: 72 yrs BP: 118/58 mmHg: :Reason For Study: CHEST PAIN : :Ordering Physician: YONATHAN, : :GERALDINE Raya MD Performed By: Nina Gaspar : :Referring: GERALDINE MCMANUS MD : + + Interpretation Summary The ejection fraction is estimated to be 50-55%. Diastolic function could not be accurately assessed due to paced rhythm. The right ventricle is mildly dilated. Right ventricular systolic function is mildly reduced. There is mild mitral regurgitation. There is a well-seated mechanical aortic valve with mild perivalvular regurgitation. The right ventricular systolic pressure is estimated to be at least 27 mmHg based on an estimated right atrial pressure of 3 mm Hg however suspect that this is an underestimation due to the severity of TR. Compared to the prior study dated 11/17/2021, no significant change. Procedure: A two-dimensional transthoracic echocardiogram with color flow and Doppler was performed. The study quality was technically adequate. Comparison is made with the echocardiogram of 11/17/2021. The heart rate ranged between 59-60 bpm during the study. Left Ventricle: The left ventricle is normal in size and wall thickness. The ejection fraction is estimated to be 50-55%. There is a mild dyssynchronous contraction pattern due to the paced rhythm. Diastolic function could not be accurately assessed due to paced rhythm. Right Ventricle: The right ventricle is mildly dilated. There is a pacemaker lead in the right ventricle. Right ventricular systolic function is mildly reduced. Atria: The left atrial size is normal. Right atrial size is normal. There is a catheter/pacemaker lead seen in the right atrium. There is no Doppler evidence for an interatrial shunt. Mitral Valve: There is mild mitral annular calcification. There is mild mitral regurgitation. Aortic Valve: There is a mechanical aortic valve. There is mild intravalvular regurgitation through the prosthetic aortic valve. There is mild perivalvular regurgitation around the prosthetic aortic valve. The peak aortic velocity is 1.7 m/sec. The aortic valve mean gradient is 6.3 mmHg. Tricuspid Valve: The tricuspid valve leaflets are thin and pliable. There is moderate to severe tricuspid regurgitation. The right ventricular systolic pressure is estimated to be at least 27 mmHg based on an estimated right atrial pressure of 3 mm Hg. Pulmonic Valve: The pulmonic valve leaflets are thin and pliable; valve motion is normal. There is no pulmonic valvular regurgitation. Great Vessels: The aortic root is not well visualized. The IVC is of normal diameter and collapses greater than 50% with a sniff. This suggests a low right atrial pressure of 3 mm Hg. Pericardium/ Pleura There is no pericardial effusion. There is no pleural effusion. MMode/2D Measurements & Calculations LVIDd: 4.6 cm LVOT diam: 1.9 cm LVIDs: 3.4 cm asc Aorta Diam: 3.1 cm FS: 24.7 % EPSS: 1.2 cm IVSd: 0.59 cm LVPWd: 0.74 cm LV cortez. diameter/BSA (cm/m^2): 2.6 LV sys. diameter/BSA (cm/m^2): 1.9 LA A2 area: 20.0 cm2 RA long axis: 4.8 cm LA A4 area: 18.2 cm2 RA area: 15.3 cm2 LA length (vol): 5.3 cm RA vol: 41.7 ml LA vol: 58.6 ml RA : 23.4 ml/m2 LA vol index: 32.9 ml/m2 IVC diam: 1.3 cm RVD1 (basal): 4.2 cm TAPSE: 1.5 cm Doppler Measurements & Calculations Ao V2 max: 172.4 cm/sec LVOT Max Abilio: 43.1 cm/sec Ao V2 mean: 118.7 cm/sec LV V1 max P.74 mmHg Ao max P.0 mmHg LV V1 VTI: 9.8 cm Ao mean P.3 mmHg JORJE(I,D): 0.77 cm2 Ao V2 VTI: 35.7 cm JORJE(V,D): 0.70 cm2 sev ratio: 0.28 JORJE indexed to BSA (cm^2/m^2): 0.43 MV E max abilio: 51.4 cm/sec TR max abilio: 248.0 cm/sec MV A max abilio: 34.4 cm/sec TR max P.6 mmHg MV E/A: 1.5 PA V2 max: 75.2 cm/sec Med Peak E' Abilio: 7.1 cm/sec PA V2 mean: 55.8 cm/sec E/E' med: 7.3 PA mean P.3 mmHg Lat Peak E' Abilio: 11.2 cm/sec PA pr(Accel): 41.3 mmHg E/E' lat: 4.6 E/e' average: 5.9 MV dec time: 0.20 sec SV(LVOT): 27.4 ml Reading Physician:10:54 AM
[2023-01-25] MEDS: OXYCODONE IR 5 MG TABLET PO (21:35)
--- NOTE | 2023-01-25 23:43 | PC.ADMIT ---
[address] Admission Note: The patient,Luis Mckeon,72 y/o, was given written information regarding hospital policies, unit procedures and contact persons. Patient's smoking status: Never smoker. Vital Signs - 8 hr 01/25/23 15:50 01/25/23 15:50 01/25/23 15:55 Temperature Pulse Rate 64 64 Respiratory Rate 13 12 Blood Pressure 113/58 L Pulse Oximetry 96 96 Oxygen Delivery Method 01/25/23 15:55 01/25/23 16:00 01/25/23 16:01 Temperature Pulse Rate 64 Respiratory Rate 13 Blood Pressure 120/58 L 118/53 L Pulse Oximetry 96 Oxygen Delivery Method 01/25/23 16:01 01/25/23 16:06 01/25/23 16:06 Temperature Pulse Rate 64 70 Respiratory Rate 12 13 13 Blood Pressure 118/56 L Pulse Oximetry 96 96 Oxygen Delivery Method 01/25/23 16:10 01/25/23 16:10 01/25/23 16:15 Temperature Pulse Rate 70 Respiratory Rate 10 L Blood Pressure 107/58 L 115/63 Pulse Oximetry 96 Oxygen Delivery Method 01/25/23 16:15 01/25/23 16:20 01/25/23 16:20 Temperature Pulse Rate 65 66 Respiratory Rate 14 14 Blood Pressure 109/56 L Pulse Oximetry 95 96 Oxygen Delivery Method 01/25/23 16:25 01/25/23 16:25 01/25/23 16:30 Temperature Pulse Rate 68 Respiratory Rate 13 Blood Pressure 123/57 L 113/64 Pulse Oximetry 96 Oxygen Delivery Method 01/25/23 16:30 01/25/23 16:35 01/25/23 16:35 Temperature Pulse Rate 63 66 Respiratory Rate 14 13 Blood Pressure 118/59 L Pulse Oximetry 96 97 Oxygen Delivery Method 01/25/23 16:40 01/25/23 16:40 01/25/23 16:45 Temperature Pulse Rate 64 Respiratory Rate 12 Blood Pressure 107/56 L 109/56 L Pulse Oximetry 96 Oxygen Delivery Method 01/25/23 16:45 01/25/23 16:48 01/25/23 16:48 Temperature Pulse Rate 66 78 Respiratory Rate 16 16 Blood Pressure 109/63 Pulse Oximetry 96 97 Oxygen Delivery Method 01/25/23 17:00 01/25/23 17:00 01/25/23 17:10 Temperature Pulse Rate 65 65 Respiratory Rate 16 14 Blood Pressure 109/65 Pulse Oximetry 97 99 Oxygen Delivery Method 01/25/23 17:20 01/25/23 17:24 01/25/23 17:24 Temperature Pulse Rate 67 70 Respiratory Rate 16 13 Blood Pressure 115/55 L Pulse Oximetry 98 99 Oxygen Delivery Method 01/25/23 17:30 01/25/23 17:30 01/25/23 17:40 Temperature Pulse Rate 68 68 Respiratory Rate 12 13 Blood Pressure 111/55 L Pulse Oximetry 98 98 Oxygen Delivery Method 01/25/23 17:45 01/25/23 17:45 01/25/23 17:50 Temperature Pulse Rate 77 85 Respiratory Rate 12 15 Blood Pressure 130/61 Pulse Oximetry 99 100 Oxygen Delivery Method 01/25/23 18:00 01/25/23 18:10 01/25/23 18:20 Temperature Pulse Rate 66 64 64 Respiratory Rate 13 13 12 Blood Pressure 125/60 Pulse Oximetry 97 97 98 Oxygen Delivery Method 01/25/23 18:30 01/25/23 18:40 01/25/23 18:50 Temperature Pulse Rate 61 60 65 Respiratory Rate 13 12 14 Blood Pressure 121/65 Pulse Oximetry 98 98 98 Oxygen Delivery Method 01/25/23 18:56 01/25/23 18:56 01/25/23 19:00 Temperature Pulse Rate 70 76 Respiratory Rate 12 21 Blood Pressure 107/58 L Pulse Oximetry 99 99 Oxygen Delivery Method 01/25/23 19:00 01/25/23 19:10 01/25/23 19:15 Temperature Pulse Rate 69 75 Respiratory Rate 12 17 Blood Pressure 109/65 Pulse Oximetry 99 99 Oxygen Delivery Method 01/25/23 19:15 01/25/23 19:20 01/25/23 19:30 Temperature Pulse Rate 79 Respiratory Rate 18 Blood Pressure 124/63 138/66 Pulse Oximetry 99 Oxygen Delivery Method Room Air 01/25/23 19:30 01/25/23 19:40 01/25/23 19:45 Temperature Pulse Rate 70 71 64 Respiratory Rate 13 16 13 Blood Pressure Pulse Oximetry 97 100 98 Oxygen Delivery Method Room Air Room Air Room Air 01/25/23 19:45 01/25/23 19:50 01/25/23 20:00 Temperature Pulse Rate 62 64 Respiratory Rate 17 15 Blood Pressure 117/74 Pulse Oximetry 97 100 Oxygen Delivery Method Room Air 01/25/23 20:00 01/25/23 20:10 01/25/23 20:15 Temperature Pulse Rate 64 63 Respiratory Rate 16 13 Blood Pressure 127/65 Pulse Oximetry 99 98 Oxygen Delivery Method 01/25/23 20:15 01/25/23 20:20 01/25/23 20:30 Temperature Pulse Rate 62 70 Respiratory Rate 12 13 Blood Pressure 129/64 Pulse Oximetry 98 97 Oxygen Delivery Method Room Air 01/25/23 20:31 01/25/23 20:31 01/25/23 20:40 Temperature Pulse Rate 80 60 Respiratory Rate 12 13 Blood Pressure 119/71 Pulse Oximetry 98 98 Oxygen Delivery Method Room Air Room Air 01/25/23 21:39 01/25/23 22:00 Temperature 97.5 F L Pulse Rate 63 Respiratory Rate 20 Blood Pressure 127/61 Pulse Oximetry 99 Oxygen Delivery Method Room Air Patient was admitted to room 207 from ER per stretcher, ambulated into bathroom and then to bed w/SBA. Is alert and oriented. Breath sounds CTA with RA sat of 99%; denied any SOB HRR w/telemetry reading of SR; has AICD. Did complain of 3/10 left chest ache and was medicated with oxycodone by [facility]. Denied nausea. BT present and abdomen is soft. Is able to turn himself in bed. Did report he has chronic bilateral foot neuropathy. Heart and lung sounds recorded and sent to night hospitalist and then he spoke with patient via mobile cart. Patient reported to MD/RN that he had a severe reaction when he had last nuclear med stress test 1 year ago. Plan of care discussed with patient and he was oriented to use of call light and bed controls. Fall risk score is low but instructed patient to either use urinal or call staff for assist when getting out of bed; verbalized understanding.
[2023-01-26 01:54] VITALS: BP 112/56; PULSE 60; RESP 20; TEMP 36.3; O2SAT 98
--- NOTE | 2023-01-26 04:00 | P.HP_ITS ---
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 Prior to this, he had one more episode of defibrilation, a year ago, when he was seen in ED with second stroke. AICD was placed 9 years ago. Prior to this he felt as usual. He did not have recent changes of medications. He mentioned that occasionally he has chest pain. Initial workup negative for ACS. investment consultant recommended observation and nuc. stress test but that was changed to echocardiogram after he reported on severe adverse reaction to injected contrast in [facility] in [facility] a year ago. On admission he has no chest pain. [facility] Medical History (Updated 01/26/23 @ 04:28 by Phillip Babcock MD) Hx of completed stroke CAD (coronary artery disease) HTN (hypertension) Chronic pain Kidney stones Ascending aortic aneurysm Acute calculous cholecystitis Surgical History S/P CABG (coronary artery bypass graft) S/P AVR (aortic valve replacement) and aortoplasty AICD (automatic cardioverter/defibrillator) present Status post laparoscopic cholecystectomy Family History Mother Diabetes mellitus Father Diabetes mellitus Social History household members: spouse and children Smoking Status: Never smoker alcohol intake: current Meds Home Medications and Allergies Home Medications Medication Instructions Recorded Confirmed Type metoprolol succinate 25 mg 40 mg PO DAILY 06/23/20 01/25/23 History tablet,extended release 24 hr nitroglycerin 0.3 mg sublingual 0.3 mg sublingual Q5MIN PRN Chest 06/23/20 01/25/23 History tablet Pain oxycodone 5 mg tablet 5 mg PO Q8HR PRN Pain (Scale Score 06/23/20 01/25/23 History 4-6) sacubitril 24 mg-valsartan 26 mg 0.5 tab PO BID 06/23/20 01/25/23 History tablet (Entresto) warfarin 1 mg tablet 1 mg PO SEEINSTR 06/23/20 01/25/23 History warfarin 1 mg tablet 2 mg PO SEEINSTR 06/23/20 01/25/23 History Allergies Allergy/AdvReac Type Severity Reaction Status Date / Time No Known Drug Allergies Allergy Verified 11/17/21 11:19 Review of Systems Constitutional Constitutional: Reports system reviewed and no additional complaints, except as documented Cardiovascular Cardiovascular: Reports chest pain Respiratory Comments: w/o cough or shortness of breath Gastrointestinal Gastrointestinal: Reports system reviewed and no additional complaints, except as documented Genitourinary Genitourinary: Reports system reviewed and no additional complaints, except as documented Neurologic Comments: w/o new weakness or numbness, chronic left-sided weakness Hematologic/Lymphatic Comments: w/o bleeding or excessively bruising Exam Vital Signs (past 8 hours): - 01/25/23 20:10 01/25/23 20:15 01/25/23 20:15 Temperature Pulse Rate 64 63 Respiratory Rate 16 13 Blood Pressure 129/64 Pulse Oximetry 99 98 Oxygen Delivery Method Oxygen Flow Rate 01/25/23 20:20 01/25/23 20:30 01/25/23 20:31 Temperature Pulse Rate 62 70 80 Respiratory Rate 12 13 12 Blood Pressure Pulse Oximetry 98 97 98 Oxygen Delivery Method Room Air Room Air Oxygen Flow Rate 01/25/23 20:31 01/25/23 20:40 01/25/23 21:39 Temperature 97.5 F L Pulse Rate 60 63 Respiratory Rate 13 20 Blood Pressure 119/71 127/61 Pulse Oximetry 98 99 Oxygen Delivery Method Room Air Oxygen Flow Rate 01/25/23 22:00 01/26/23 01:54 Temperature 97.3 F L Pulse Rate 60 Respiratory Rate 20 Blood Pressure 112/56 L Pulse Oximetry 98 Oxygen Delivery Method Room Air Oxygen Flow Rate 0 Oxygen Delivery Method Room Air Oxygen Flow Rate 0 Chest Other: AICD in place Resp Other: CTA Cardio Other: RRR KELLY w/o JVD or legs edema GI Other: not distended Skin Other: w/o rashes Neuro Other: Lt hemiparesis Psych Mental Status: mental status grossly normal Mood: congruent mood Judgment: judgment good Objective Labs 01/25/23 14:34 01/25/23 14:34 Labs: Laboratory Results - last 24 hr 01/25/23 01/25/23 14:34 17:55 WBC 8.3 RBC 4.32 L Hgb 12.8 L Hct 37.7 L MCV 87.3 MCH 29.7 MCHC 34.0 RDW 13.3 Plt Count 237 Neut % (Auto) 59.2 Lymph % (Auto) 25.9 [place] % (Auto) 9.0 Eos % (Auto) 4.7 H Baso % (Auto) 1.2 Neut # (Auto) 4900 Lymph # (Auto) 2200 [place] # (Auto) 700 Eos # (Auto) 400 Baso # (Auto) 100 PT 41.0 H INR 3.5 H APTT 51 H Sodium 137 Potassium 3.5 Chloride 103 Carbon Dioxide 28 BUN 12 Creatinine 1.08 Estimated GFR > 60 BUN/Creatinine Ratio 11.1 Glucose 88 Calcium 9.3 Magnesium 1.9 Total Bilirubin 1.1 AST 40 ALT 45 Alkaline Phosphatase 69 Total Creatine Kinase 114 Troponin I 0.016 Total Protein 7.1 Albumin 3.9 Globulin 3.2 Albumin/Globulin Ratio 1.2 Lipase 116 Urine Color Yellow Urine Appearance Clear Urine pH 7.0 Ur Specific [place] <=1.005 Urine Protein Negative Urine Glucose (UA) Negative Urine Ketones Negative Urine Occult Blood Negative Urine Nitrate Negative Urine Bilirubin Negative Urine Urobilinogen 0.2 Ur Leukocyte Esterase 1+ H Urine RBC 0-1/hpf Urine WBC 1-5/hpf Ur Squamous Epith Cells 0-1 /hpf Urine Bacteria Few (2-10) H Ur Culture Indicated? Specimen cultured Assessment & Plan Assessment and plan (1) AICD discharge: Status: Acute Plan: w/o obvious triggers - f/u with cardiology - telemetry monitoring, r/o ACS (2) Chest pain: Qualifiers: Chest pain type: unspecified Qualified Code(s): R07.9 - Chest pain, unspecified Status: Acute Plan: w/o evidence of ACS on admission - s/p CABG - prn NTG (3) HTN (hypertension): Status: Acute Plan: Toprol XL (4) CAD (coronary artery disease): Status: Acute Plan: ECHO pending - last study, a year ago, w/o regional wall motion abnormalities and preserved EF - f/u with cardiology - no statin or ASA on med list (5) Hx of completed stroke: Status: Acute Plan: 10/2021 - no statin or ASA on med list
[2023-01-26 05:00] VITALS: BP 118/58; PULSE 69; RESP 20; TEMP 36.6; O2SAT 100
[2023-01-26 08:32] VITALS: BP 122/60; PULSE 76
[2023-01-26] MEDS: OXYCODONE IR 5 MG TABLET PO (08:32)
[2023-01-26] MEDS: METOPROLOL ER 25 MG TABLET PO (08:32)
[2023-01-26 08:34] LABS: BUN Creatinine Ratio 12.4 (6-22); Blood Urea Nitrogen 12 mg/dL (9-20); Calcium 9.1 mg/dL (8.4-10.2); Carbon Dioxide 32 mmol/L (22-32); Chloride 104 mmol/L (98-107); Estimated Glomerular Filt Rate > 60 mL/min (>60); Glucose 105 mg/dL (80-110); HEMOLYSIS 21 (0-50); Potassium 4.5 mmol/L (3.4-5.1); Sodium 138 mmol/L (137-145)
[2023-01-26] MEDS: SODIUM CHLORIDE 0.9% FLUSH 10 ML IV (08:37)
[2023-01-26 08:38] VITALS: BP 122/60; PULSE 76; RESP 18; TEMP 36.4; O2SAT 99
[2023-01-26 08:43] LABS: NT-proBNP (BNP-Adult 18+) 2040 pg/mL (<125)
[2023-01-26 08:46] LABS: Troponin I 0.017 ng/mL (0.01-0.034)
--- NOTE | 2023-01-26 11:17 | P.DS_ITS ---
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 Prior to this, he had one more episode of defibrilation, a year ago, when he was seen in ED with second stroke. AICD was placed 9 years ago. Prior to this he felt as usual. He did not have recent changes of medications. He mentioned that occasionally he has chest pain. Initial workup negative for ACS. car sales consultant recommended observation and nuc. stress test but that was changed to echocardiogram after he reported on severe adverse reaction to injected contrast in [facility] in [facility] a year ago. On admission he has no chest pain. Discharge Providers Provider Date of admission: 01/25/23 19:52 Discharge Date: 01/26/23 Primary care physician: JAMAL Morris Discharge provider: Ashvin Muhammad DO Summary Hospital Course Discharge Diagnosis: 1) AICD discharge: (2) Chest pain: (3) HTN (hypertension): (4) CAD (coronary artery disease): (5) Hx of completed stroke: Hospital Course: 72 year old male who presented with chest pain after AICD discharge. His symptoms did improve over observation time frame. Device was interrogated in the ER and confirmed shock x1. Echocardiogram was recommended which showed no signficant changes compared to prior. Troponin levels remained within normal limits x3. He was discharged home. Outpatient follow up with cardiology is recommended in the next week to optimize medications after AICD discharge. No changes to his home medications were recommended at the time of discharge. Time Spent with Patient Time spent: Greater than 30 minutes Exam Vital Signs (past 8 hours): - 01/26/23 05:00 01/26/23 08:32 01/26/23 08:38 Temperature 97.8 F 97.5 F L Pulse Rate 69 76 76 Respiratory Rate 20 18 Blood Pressure 118/58 L 122/60 122/60 Pulse Oximetry 100 99 Oxygen Flow Rate 0 Oxygen Delivery Method Room Air Oxygen Flow Rate 0 Chest Other: AICD in place Resp Other: CTA Cardio Other: RRR KELLY w/o JVD or legs edema GI Other: not distended Skin Other: w/o rashes Neuro Other: Lt hemiparesis Psych Mental Status: mental status grossly normal Mood: congruent mood Judgment: judgment good Objective Labs 01/25/23 14:34 01/26/23 08:10 Labs: Laboratory Results - last 24 hr 01/25/23 01/25/23 01/26/23 14:34 17:55 08:10 WBC 8.3 RBC 4.32 L Hgb 12.8 L Hct 37.7 L MCV 87.3 MCH 29.7 MCHC 34.0 RDW 13.3 Plt Count 237 Neut % (Auto) 59.2 Lymph % (Auto) 25.9 [place] % (Auto) 9.0 Eos % (Auto) 4.7 H Baso % (Auto) 1.2 Neut # (Auto) 4900 Lymph # (Auto) 2200 [place] # (Auto) 700 Eos # (Auto) 400 Baso # (Auto) 100 PT 41.0 H INR 3.5 H APTT 51 H Sodium 137 138 Potassium 3.5 4.5 Chloride 103 104 Carbon Dioxide 28 32 BUN 12 12 Creatinine 1.08 0.97 Estimated GFR > 60 > 60 BUN/Creatinine Ratio 11.1 12.4 Glucose 88 105 Calcium 9.3 9.1 Magnesium 1.9 2.0 Total Bilirubin 1.1 AST 40 ALT 45 Alkaline Phosphatase 69 Total Creatine Kinase 114 Troponin I 0.016 0.017 NT-Pro-B Natriuret Pep 2040 H Total Protein 7.1 Albumin 3.9 Globulin 3.2 Albumin/Globulin Ratio 1.2 Lipase 116 Urine Color Yellow Urine Appearance Clear Urine pH 7.0 Ur Specific [place] <=1.005 Urine Protein Negative Urine Glucose (UA) Negative Urine Ketones Negative Urine Occult Blood Negative Urine Nitrate Negative Urine Bilirubin Negative Urine Urobilinogen 0.2 Ur Leukocyte Esterase 1+ H Urine RBC 0-1/hpf Urine WBC 1-5/hpf Ur Squamous Epith Cells 0-1 /hpf Urine Bacteria Few (2-10) H Ur Culture Indicated? Specimen cultured PFSH Medical History (Updated 01/26/23 @ 04:28 by Phillip Babcock MD) Hx of completed stroke CAD (coronary artery disease) HTN (hypertension) Chronic pain Kidney stones Ascending aortic aneurysm Acute calculous cholecystitis Surgical History S/P CABG (coronary artery bypass graft) S/P AVR (aortic valve replacement) and aortoplasty AICD (automatic cardioverter/defibrillator) present Status post laparoscopic cholecystectomy Family History Mother Diabetes mellitus Father Diabetes mellitus Social History household members: spouse and children Smoking Status: Never smoker alcohol intake: current Discharge Plan Discharge Plan Patient Disposition: Home Provider Discharge Comment: You were admitted to the hospital after an AICD shock. Echocardiogram is unchanged from prior and no elevated troponins. No medication changes are recommended on discharge. Discharge orders & Medications Prescriptions: Continued nitroglycerin 0.3 mg tablet, sublingual 0.3 mg sublingual Q5MIN PRN (Reason: Chest Pain) Patient Comments: Place 1 tablet (0.3 mg total) under the tongue every 5 (five) min...(REFER TO PRESCRIPTION NOTES). metoprolol succinate 25 mg tablet extended release 24 hr 40 mg PO DAILY Patient Comments: take 1 AND 1/2 tablets by mouth once daily warfarin 1 mg tablet 2 mg PO SEEINSTR Patient Comments: take 2 tablets by mouth once daily EXCEPT MONDAY AND MONDAY TAKE 1MG Rx Instructions: take 2 tablets by mouth once daily EXCEPT monday AND monday warfarin 1 mg tablet 1 mg PO SEEINSTR Patient Comments: take 2 tablets by mouth once daily EXCEPT MONDAY AND MONDAY TAKE 1MG Rx Instructions: take one tablet by mouth everyother day. oxycodone 5 mg tablet 5 mg PO Q8HR PRN (Reason: Pain (Scale Score 4-6)) Patient Comments: take 1 tablet by mouth twice a day Entresto 24-26 mg tablet 0.5 tab PO BID Patient Comments: take 1/2 tablet by mouth twice a day Follow up/Referrals: Mohini Dc ARNP [Primary Care Provider] - Diet/Activity/Treatments Diet: Diet as Tolerated and Regular Activity: As tolerated Visit Report/Discharge Packet Instructions: DI for Chest Pain Stand Alone Forms: Patient Portal/API, Stroke Signs & Symptoms Discharge Data Primary Care Provider: Mohini Dc Attending Provider: Phillip Babcock Admit Date/Time: 01/25/23 19:52 Discharges patient from system. Discharge Date/Time: 01/26/23 13:25
[2023-01-26 12:00] VITALS: BP 132/65; PULSE 65; RESP 16; TEMP 37; O2SAT 98
--- NOTE | 2023-01-26 13:22 | PC.NURSE ---
Day shift: Discharge instructions gone over with patient. All questions answered and patient stated understanding. PIV and tele removed prior to discharge. All belongings with patient. Taxi voucher given to patient and patient escorted to main entrance via wheelchair by [facility] where taxi took him home.
== END 2023-01-26 13:25 | disposition home or self-care (01) ==
LOC: ED 15:12 → AC 19:53
PROVIDERS: Internal Medicine; Admitting Provider Internal Medicine; Emergency Provider Emergency Medicine; PCP Nurse Practitioner Family; Referring Provider Emergency Medicine; Visit Provider Internal Medicine
DX: R07.9 Chest pain, unspecified (principal); I10 Essential (primary) hypertension; Z95.810 Presence of automatic (implantable) cardiac defibrillator; Z79.01 Long term (current) use of anticoagulants; Z95.2 Presence of prosthetic heart valve; Z95.1 Presence of aortocoronary bypass graft; I25.10 Atherosclerotic heart disease of native coronary artery without angina pectoris; Z86.73 Personal history of transient ischemic attack (TIA), and cerebral infarction without residual deficits
CPT/HCPCS: 36415; 71045; 80048; 80053; 81001; 81003; 82550; 83690; 83735; 83880; 84484; 85025; 85610; 85730; 87086; 93005; 93306; 99284; 99291; G0378

== ENCOUNTER 2023-07-02 04:08 | Emergency (ER) | payer MEDICARE, SELFPAY ==
[2023-01-25 21:15] VITALS: BMI 27.4
[2023-07-02] VITALS (23 sets, daily range): BP systolic 81–126; BP diastolic 46–78; PULSE 61–89; RESP 7–36; TEMP 37.6; O2SAT 94–100; BMI 25.4
--- NOTE | 2023-07-02 04:30 | DI.RAD.S_ITS ---
PROCEDURE: XR CHEST 1V INDICATIONS: ED patient. TECHNIQUE: One view of the chest was acquired. COMPARISON: [facility], CR, XR CHEST 1V, 01/25/2023, 14:53. [facility], CR, XR CHEST 1V, 11/17/2021, 11:37. FINDINGS: Surgical changes and devices: Left pacemaker/AICD. Post median sternotomy. Aortic valve replacement. Lungs and pleura: Lungs are clear. No pleural effusions or pneumothorax. Mediastinum: Mediastinal contours appear normal. Heart size is within normal limits. Bones and chest wall: No suspicious bony lesions. Overlying soft tissues appear unremarkable. IMPRESSION: No acute cardiopulmonary abnormality is seen. This report is concordant with the overnight preliminary interpretation. Dictated by: Shashank Martinez M.D. on 07/02/2023 at 9:49 Approved by: Shashank Martinez M.D. on 07/02/2023 at 9:51
--- NOTE | 2023-07-02 04:33 | ED_ITS ---
HPI - Chest Pain General Chief Complaint: Chest Pain Stated Complaint: chest pain Time Seen by Provider: 07/02/23 04:09 Source: patient Mode of arrival: Ambulatory Limitations: no limitations History of Present Illness HPI narrative: 72-year-old male with history of coronary disease, congestive heart failure presents for chest pain. Patient was here visiting his who is also a patient. Throughout his 's stay he became extremely anxious, diaphoretic, tremulous. He began to hyperventilate, stutter, and state that he was having chest pain and his fingertips were numb. He took 2 of his home nitroglycerin that he brought from home with him and decided to check in for evaluation. In order to obtain an EKG without motion artifact nursing staff strength and conditioning coach the patient through deep breathing exercises. After these exercises were performed the patient stated that his chest pain was resolved and he felt much better, however he still felt very shaky with a headache. Related Data Home Medications Medication Instructions Recorded Confirmed metoprolol succinate 25 mg 40 mg PO DAILY 06/23/20 01/25/23 tablet,extended release 24 hr nitroglycerin 0.3 mg sublingual 0.3 mg sublingual Q5MIN PRN Chest 06/23/20 01/25/23 tablet Pain oxycodone 5 mg tablet 5 mg PO Q8HR PRN Pain (Scale Score 06/23/20 01/25/23 4-6) sacubitril 24 mg-valsartan 26 mg 0.5 tab PO BID 06/23/20 01/25/23 tablet (Entresto) warfarin 1 mg tablet 1 mg PO SEEINSTR 06/23/20 01/25/23 warfarin 1 mg tablet 2 mg PO SEEINSTR 06/23/20 01/25/23 atorvastatin 80 mg tablet 80 mg PO DAILY 07/02/23 07/02/23 Allergies Allergy/AdvReac Type Severity Reaction Status Date / Time No Known Drug Allergies Allergy Verified 07/02/23 04:55 Review of Systems Review of Systems Narrative: Negative except as noted above Patient History Medical History (Updated 07/02/23 @ 06:42 by Monalisa Arnett MD) Hx of completed stroke CAD (coronary artery disease) HTN (hypertension) Chronic pain Kidney stones Ascending aortic aneurysm Acute calculous cholecystitis Surgical History S/P CABG (coronary artery bypass graft) S/P AVR (aortic valve replacement) and aortoplasty AICD (automatic cardioverter/defibrillator) present Status post laparoscopic cholecystectomy Family History Mother Diabetes mellitus Father Diabetes mellitus Social History household members: spouse and children Smoking Status: Never smoker alcohol intake: current Smoking Status: Never smoker alcohol intake frequency: holidays/special occasions only Substance Use Type: does not use Exam Initial Vital Signs Initial Vital Signs: Vital Signs Temperature 99.7 F H 07/02/23 04:08 Pulse Rate 89 07/02/23 04:08 Respiratory Rate 26 H 07/02/23 04:08 Blood Pressure 126/78 07/02/23 04:08 Pulse Oximetry 97 07/02/23 04:08 Oxygen Delivery Method Room Air 07/02/23 04:08 Const: Awake, alert, anxious Cardiac: regular rate, regular rhythm RESP: unlabored, clear bilaterally, no wheezing GI: Atraumatic, soft, nontender, nondistended, no rebound, no guarding MSK: Atraumatic, full range of motion, pulses equal Skin: Warm, intact, no rashes Neuro: AO x3, CN II-XII grossly intact, moves all extremities Psych: anxious, tearful, hyperventilating. Not suicidal, not homicidal Course Orders Ordered: ED Orders 07/02/23 04:20 Complete Blood Count AUTO DIFF Stat Comprehensive Metabolic Panel Stat Lipase Stat Magnesium Stat PTT Partial Thromboplastin Raad Stat Prothrombin Time INR Stat Troponin & CK Cardiac Panel Stat 07/02/23 04:30 XR chest 1V Stat EKG-12 Lead Stat Sodium Chloride (Normal Saline 0.9%) 500 mls @ 1,000 mls/hr IV BOLUS ONE Stop: 07/02/23 06:55 Last Infusion: 07/02/23 06:29 Dose: Infused Documented By: Admin: 07/02/23 05:50 Dose: 1,000 mls/hr Documented By: KARRIE Discontinued Medications Aspirin (Aspirin 81 Mg Chew Tab) 324 mg PO NOW ONE Stop: 07/02/23 04:31 Last Admin: 07/02/23 04:41 Dose: 324 mg Documented By: KARRIE Atorvastatin Calcium (Atorvastatin 20 Mg Tablet) 80 mg PO NOW ONE Stop: 07/02/23 05:05 Lorazepam (Lorazepam 2 Mg/Ml Inj) 1 mg IV NOW ONE Stop: 07/02/23 04:32 Last Admin: 07/02/23 04:36 Dose: 1 mg Documented By: KARRIE Warfarin Sodium (Warfarin 1 Mg Tablet) 1 mg PO NOW ONE Stop: 07/02/23 05:03 Vital Signs Vital signs: Vital Signs - 8 hr 07/02/23 04:08 07/02/23 04:14 07/02/23 04:30 Temperature 99.7 F H Pulse Rate 89 71 Respiratory Rate 26 H 36 H Blood Pressure 126/78 110/57 L Pulse Oximetry 97 98 Oxygen Delivery Method Room Air 07/02/23 04:30 07/02/23 05:00 07/02/23 05:00 Temperature Pulse Rate 66 61 Respiratory Rate 10 L 8 L Blood Pressure 91/50 L Pulse Oximetry 96 95 Oxygen Delivery Method 07/02/23 05:18 07/02/23 05:18 07/02/23 05:20 Temperature Pulse Rate 62 Respiratory Rate 10 L Blood Pressure 84/51 L 81/46 L Pulse Oximetry 94 Oxygen Delivery Method 07/02/23 05:20 07/02/23 05:23 07/02/23 05:23 Temperature Pulse Rate 62 67 Respiratory Rate 10 L 13 Blood Pressure 86/49 L Pulse Oximetry 96 96 Oxygen Delivery Method 07/02/23 05:24 07/02/23 05:24 07/02/23 05:30 Temperature Pulse Rate 62 Respiratory Rate 16 Blood Pressure 87/49 L 89/50 L Pulse Oximetry 95 Oxygen Delivery Method 07/02/23 05:30 07/02/23 05:36 07/02/23 05:36 Temperature Pulse Rate 67 67 Respiratory Rate 10 L 10 L Blood Pressure 82/50 L Pulse Oximetry 95 96 Oxygen Delivery Method 07/02/23 05:45 07/02/23 05:45 07/02/23 06:00 Temperature Pulse Rate 68 67 Respiratory Rate 9 L 11 L Blood Pressure 105/51 L Pulse Oximetry 95 96 Oxygen Delivery Method 07/02/23 06:00 07/02/23 06:15 07/02/23 06:15 Temperature Pulse Rate 67 Respiratory Rate 12 Blood Pressure 84/51 L 96/55 L Pulse Oximetry 97 Oxygen Delivery Method Room Air MDM - Chest Pain Differential Diagnosis Differential diagnosis: Likely chest pain, biliary colic and other Lab Data 07/02/23 04:20 07/02/23 04:20 Labs: Lab Results 07/02/23 Range/Units 04:20 WBC 5.8 (4.5-11.0) X10^3/uL RBC 4.01 L (4.5-5.9) X10^6/uL Hgb 12.1 L (13.5-17.5) g/dL Hct 35.9 L (41-53) % MCV 89.5 (80-100) fL MCH 30.1 (26-34) PG MCHC 33.6 (30-36) % RDW 13.9 (11.6-14.8) % Plt Count 192 (150-400) X10^3/uL Neut % (Auto) 53.7 (50-75) % Lymph % (Auto) 25.2 (25-40) % [place] % (Auto) 10.1 (3-14) % Eos % (Auto) 9.0 H (2-4) % Baso % (Auto) 2.0 (0-2) % Neut # (Auto) 3100 (8744-4641) /uL Lymph # (Auto) 1500 (5822-7537) /uL [place] # (Auto) 600 (0-900) /uL Eos # (Auto) 500 H (0-450) /uL Baso # (Auto) 100 (0-100) /uL PT 33.7 H (9.4-12.5) SECONDS INR 2.9 H (0.9-1.3) APTT 57 H (25.1-36.5) SECONDS Sodium 140 (137-145) mmol/L Potassium 4.0 (3.4-5.1) mmol/L Chloride 106 (98-107) mmol/L Carbon Dioxide 30 (22-32) mmol/L BUN 19 (9-20) mg/dL Creatinine 1.10 (0.66-1.25) mg/dL Estimated GFR > 60 (>60) mL/min BUN/Creatinine Ratio 17.3 (6-22) Glucose 134 H (80-110) mg/dL Calcium 9.0 (8.4-10.2) mg/dL Magnesium 1.8 (1.6-2.3) mg/dL Total Bilirubin 1.5 H (0.2-1.3) mg/dL AST 39 (17-59) IU/L ALT 43 (<50) IU/L Alkaline Phosphatase 70 (38-126) U/L Total Creatine Kinase 173 H (55-170) U/L Troponin I < 0.012 (0.01-0.034) ng/mL Total Protein 7.1 (6.3-8.2) g/dL Albumin 3.9 (3.5-5.0) g/dL Globulin 3.2 (1.7-4.1) g/dL Albumin/Globulin Ratio 1.2 (1.0-2.8) Lipase 127 (23-300) U/L ECG Data Interpretation: Normal sinus rhythm, 64 beats per minute. Normal MI, no ST T wave changes, no STEMI MDM Narrative Medical decision making narrative: Chest pain experienced while with patient's in the emergency department. While in the room the patient is hyperventilating, very anxious and tearful, sweaty, also complaining of bilateral hand numbness and tingling. After being coached through breathing exercises by nursing staff in order to obtain an EKG the patient's chest pain resolved. Low suspicion for ACS, do suspect that patient's chest pain brought on by extreme anxiety from his 's current medical condition. EKG is normal sinus rhythm without concerning findings. Patient also given a dose of Ativan for anxiolysis. Laboratory work is reviewed, troponin undetectable, chest x-ray without concerning findings. Patient did have a brief drop in his blood pressure while he was in the department, however he did take several nitroglycerins before checking in and did receive a mg of Ativan for anxiolysis. Patient's blood pressure resolved after a small bolus of IV fluids, he was able to sleep comfortably in ED bed and remained pain-free after initial presentation in the emergency department. Patient counseled to continue taking his usual medications and to follow up with his retirement plan specialist. Discharge Plan Departure Patient Disposition: Home Clinical Impression: Chest pain Instructions: DI for Chest Pain Activity Restrictions/Additional Instructions: Your EKG, heart enzymes, and chest x-ray appear normal today. Continue to take all of your regular medications as prescribed. Follow up with your retirement plan specialist. Prescriptions: No Action nitroglycerin 0.3 mg tablet, sublingual 0.3 mg sublingual Q5MIN PRN (Reason: Chest Pain) Patient Comments: Place 1 tablet (0.3 mg total) under the tongue every 5 (five) min...(REFER TO PRESCRIPTION NOTES). metoprolol succinate 25 mg tablet extended release 24 hr 40 mg PO DAILY Patient Comments: take 1 AND 1/2 tablets by mouth once daily warfarin 1 mg tablet 2 mg PO SEEINSTR Patient Comments: take 2 tablets by mouth once daily EXCEPT MONDAY AND MONDAY TAKE 1MG Rx Instructions: take 2 tablets by mouth once daily EXCEPT monday AND monday warfarin 1 mg tablet 1 mg PO SEEINSTR Patient Comments: take 2 tablets by mouth once daily EXCEPT MONDAY AND MONDAY TAKE 1MG Rx Instructions: take one tablet by mouth everyother day. oxycodone 5 mg tablet 5 mg PO Q8HR PRN (Reason: Pain (Scale Score 4-6)) Patient Comments: take 1 tablet by mouth twice a day Entresto 24-26 mg tablet 0.5 tab PO BID Patient Comments: take 1/2 tablet by mouth twice a day atorvastatin 80 mg tablet 80 mg PO DAILY Referrals: Mohini Dc ARNP [Primary Care Provider] - Stand Alone Forms: Patient Portal/API
[2023-07-02] MEDS: LORazepam 2 MG/ML INJ 1 MG IV (04:36)
[2023-07-02] MEDS: ASPIRIN 81 MG CHEW TAB 324 MG PO (04:41)
[2023-07-02 04:46] LABS: Add Manual Diff / Slide Review NO; Basophils Absolute Auto 100 /uL (0-100); Eosinophils Absolute Auto 500 /uL (0-450); Hematocrit 35.9 % (41-53); Hemoglobin 12.1 g/dL (13.5-17.5); Lymphocytes Absolute Auto 1500 /uL (1100-4500); Lymphocytes Percent Auto 25.2 % (25-40); Mean Corpuscular HGB Conc 33.6 % (30-36); Mean Corpuscular Hemoglobin 30.1 PG (26-34); Mean Corpuscular Volume 89.5 fL (80-100); Monocytes Absolute Auto 600 /uL (0-900); Monocytes Percent Auto 10.1 % (3-14); Neutrophils Absolute Auto 3100 /uL (1500-7000); Neutrophils Percent Auto 53.7 % (50-75); Platelet Count 192 X10^3/uL (150-400); Red Blood Cell Count 4.01 X10^6/uL (4.5-5.9); Red Cell Distribution Width 13.9 % (11.6-14.8); White Blood Cell Count 5.8 X10^3/uL (4.5-11.0)
[2023-07-02 04:56] LABS: INR 2.9 (0.9-1.3); Prothrombin Time 33.7 SECONDS (9.4-12.5)
[2023-07-02 04:59] LABS: Alanine Aminotransferase 43 IU/L (<50); Albumin 3.9 g/dL (3.5-5.0); Albumin Globulin Ratio 1.2 (1.0-2.8); Alkaline Phosphatase 70 U/L (38-126); Aspartate Aminotransferase 39 IU/L (17-59); BUN Creatinine Ratio 17.3 (6-22); Bilirubin Total 1.5 mg/dL (0.2-1.3); Blood Urea Nitrogen 19 mg/dL (9-20); Carbon Dioxide 30 mmol/L (22-32); Chloride 106 mmol/L (98-107); Creatine Kinase 173 U/L (55-170); Estimated Glomerular Filt Rate > 60 mL/min (>60); Globulin 3.2 g/dL (1.7-4.1); Glucose 134 mg/dL (80-110); HEMOLYSIS < 15 (0-50); Lipase 127 U/L (23-300); Magnesium 1.8 mg/dL (1.6-2.3); PTT Partial Thromboplastin Tim 57 SECONDS (25.1-36.5); Sodium 140 mmol/L (137-145); Total Protein 7.1 g/dL (6.3-8.2)
[2023-07-02 05:11] LABS: Troponin I < 0.012 ng/mL (0.01-0.034)
[2023-07-02] MEDS: SODIUM CHLORIDE 0.9% 500 ML 1000 ML IV (05:50)
--- NOTE | 2023-07-02 07:15 | PC.NURSE ---
Nursing Re-Assessment: 0600: Patient having consistently low BP's, he denies any lightheadedness/dizziness. He reports feeling tired only. Denies CP at this time. MD aware and 500ml IV fluid bolus started. 0700: Patient's BP improved and MD discussed with patient that he was safe for discharge. Prior to discharging while patient still resting on gurney on staff radiation therapist, patient had approximately 50 seconds of wide complex tachycardia, appearing like Vtach. Staff quickly went to bedside to assess patient, he denied having any feeling of heart arrhythmia or discomfort. See paper chart for printed copy of rhythm strip from staff radiation therapist. After returning to R patient had stable BP and returned back to sleeping. 0710: Patient's AICD interrogated ([employer]), awaiting faxed results. At this time discharge postponed.
== END 2023-07-02 08:35 | disposition home or self-care (01) ==
PROVIDERS: Emergency Medicine; Emergency Provider Emergency Medicine; PCP Nurse Practitioner Family
DX: R07.9 Chest pain, unspecified (principal); I50.9 Heart failure, unspecified; Z79.01 Long term (current) use of anticoagulants
CPT/HCPCS: 36415; 71045; 80053; 82550; 83690; 83735; 84484; 85025; 85610; 85730; 93005; 93010; 96361; 96374; 99284; J2060

== ENCOUNTER 2023-12-14 14:45 | Emergency (ER) | payer MEDICARE, SELFPAY ==
[2023-01-25 21:15] VITALS: BMI 27.4
[2023-12-14] VITALS (53 sets, daily range): BP systolic 103–151; BP diastolic 54–85; PULSE 60–92; RESP 8–34; TEMP 37.1; O2SAT 93–100; BMI 24.9
--- NOTE | 2023-12-14 14:51 | DI.RAD.S_ITS ---
PROCEDURE: XR CHEST 1V INDICATIONS: chest pain TECHNIQUE: One view of the chest was acquired. COMPARISON: [facility], CR, XR CHEST 1V, 07/02/2023, 5:07. FINDINGS: Surgical changes and devices: Sternal wires and pacemaker are present. Lungs and pleura: Lungs are clear. No pleural effusions or pneumothorax. Mediastinum: Mediastinal contours appear normal. Heart size is normal. Bones and chest wall: No suspicious bony lesions. Overlying soft tissues appear unremarkable. IMPRESSION: No acute pulmonary process. Dictated by: Meghan Rock M.D. on 12/14/2023 at 16:45 Approved by: Meghan Rock M.D. on 12/14/2023 at 16:45
--- NOTE | 2023-12-14 14:59 | EKG_ITS ---
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
[2023-12-14 15:00] LABS: Add Manual Diff / Slide Review NO; Basophils Absolute Auto 0 /uL (0-100); Basophils Percent Auto 0.4 % (0-2); Eosinophils Absolute Auto 100 /uL (0-450); Eosinophils Percent Auto 0.5 % (2-4); Hematocrit 40.2 % (41-53); Hemoglobin 13.4 g/dL (13.5-17.5); Lymphocytes Absolute Auto 2300 /uL (1100-4500); Lymphocytes Percent Auto 18.5 % (25-40); Mean Corpuscular HGB Conc 33.3 % (30-36); Mean Corpuscular Hemoglobin 30.1 PG (26-34); Mean Corpuscular Volume 90.1 fL (80-100); Monocytes Absolute Auto 1300 /uL (0-900); Monocytes Percent Auto 10.2 % (3-14); Neutrophils Absolute Auto 8800 /uL (1500-7000); Neutrophils Percent Auto 70.4 % (50-75); Platelet Count 212 X10^3/uL (150-400); Red Blood Cell Count 4.46 X10^6/uL (4.5-5.9); Red Cell Distribution Width 14.8 % (11.6-14.8); White Blood Cell Count 12.5 X10^3/uL (4.5-11.0)
--- NOTE | 2023-12-14 15:06 | EKG_ITS ---
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
--- NOTE | 2023-12-14 15:06 | PC.NURSE ---
1510-Alarms alerted this RN that the patient went into Vtach, RT was nearby and called to bedside for EKG, at bedside currently. Provider Anoop and charge nurse aware, no new orders at this time. Crash cart is at the bedside and this RN is going to interrogate his pacemaker
[2023-12-14 15:07] LABS: INR 1.7 (0.9-1.3); Prothrombin Time 20.1 SECONDS (9.4-12.5)
[2023-12-14 15:10] LABS: PTT Partial Thromboplastin Tim 36 SECONDS (25.1-36.5)
[2023-12-14 15:15] LABS: Alanine Aminotransferase 71 IU/L (<50); Albumin 4.1 g/dL (3.5-5.0); Albumin Globulin Ratio 1.4 (1.0-2.8); Alkaline Phosphatase 65 U/L (38-126); Aspartate Aminotransferase 51 IU/L (17-59); BUN Creatinine Ratio 20.2 (6-22); Bilirubin Total 1.6 mg/dL (0.2-1.3); Blood Urea Nitrogen 19 mg/dL (9-20); Calcium 9.4 mg/dL (8.4-10.2); Carbon Dioxide 25 mmol/L (22-32); Chloride 101 mmol/L (98-107); Creatine Kinase 222 U/L (55-170); Estimated Glomerular Filt Rate > 60 mL/min (>60); Globulin 2.9 g/dL (1.7-4.1); Glucose 136 mg/dL (80-110); HEMOLYSIS < 15 (0-50); Lipase 181 U/L (23-300); Potassium 3.7 mmol/L (3.4-5.1); Sodium 137 mmol/L (137-145)
--- NOTE | 2023-12-14 15:26 | PC.NURSE ---
[employer] called to get a rep out here so the pacemaker can be interrogated, rep reports not being able to come out until 1729
--- NOTE | 2023-12-14 15:27 | DI.CT.S_ITS ---
PROCEDURE: CT ABDOMEN PELVIS W CON INDICATIONS: Abdominal pain TECHNIQUE: After the administration of intravenous contrast, axial sections acquired from the lung bases to the pubic symphysis. Coronal and sagittal reformats were performed. For radiation dose reduction, the following was used: automated exposure control, adjustment of mA and/or kV according to patient size. COMPARISON: None. FINDINGS: Image quality: Diagnostic. Lower Chest: Cardiac generator device. Aortic valve replacement. No pleural effusion. ABDOMEN: Liver: Hypodense focus in the right lobe of the liver. Possibly a benign cyst or hemangioma. Gallbladder: Absent. Biliary ducts: No biliary dilation. Pancreas: No ductal dilation. Small cyst in the head of the pancreas measuring 1.2 x 0.8 cm, (2/35). Spleen: Size is within normal limits. Small cyst or hemangioma in the liver. Adrenal Glands: Thickening of the left adrenal gland. Kidneys and Ureters: No hydronephrosis. No solid mass. No complex renal cystic lesion which requires follow up. Stomach and Bowel: Prominent stool in the rectum. Prominent stool in the right colon. The appendix is not dilated. No small bowel obstruction. The stomach is fluid-filled. Peritoneum: No abnormal intraperitoneal fluid. No free air. Ventral Wall: No significant ventral hernia. Abdominal Nodes: No retroperitoneal or mesenteric adenopathy by size criteria. Vessels: Aorta and inferior vena cava are normal in size. PELVIS: Pelvic Organs: Prostatomegaly. Bladder: Only partially distended. No stone. Pelvic Nodes: No enlarged lymph nodes. Miscellaneous: No inguinal hernias are seen. Bones: No aggressive osseous abnormality. Post median sternotomy. IMPRESSION: 1. No acute abnormality identified. No free fluid. 2. There is prominent stool in the colon and rectum. Raising the possibility of constipation. -Recommend clinical correlation. 3. Small cyst in the head of the pancreas measuring 1.2 cm. -Recommend follow-up CT pancreas or MRI in 2 years. Dictated by: Shashank Martinez M.D. on 12/14/2023 at 16:36 Approved by: Shashank Martinez M.D. on 12/14/2023 at 16:49
--- NOTE | 2023-12-14 15:27 | DI.CT.S_ITS ---
PROCEDURE: CT HEAD/BRAIN WO CON INDICATIONS: headache TECHNIQUE: Noncontrast 4.5 mm thick angled axial sections acquired from the foramen magnum to the vertex, with coronal and sagittal reformats. For radiation dose reduction, the following was used: automated exposure control, adjustment of mA and/or kV according to patient size. COMPARISON: [facility], CT, CT HEAD/BRAIN WO CON, 01/25/2022, 16:26. [facility], CT, CT HEAD WITHOUT CONTRAST, 09/28/2023, 8:49. FINDINGS: Image quality: Diagnostic. CSF spaces: Basal cisterns are patent. No extra-axial fluid collections. The ventricles are symmetric in size and shape. Brain: No intracranial bleeds or masses. There is cerebral volume loss for age, with resultant ventricular and sulcal prominence. There are periventricular and deep white matter chronic small vessel ischemic changes. There is intracranial internal carotid artery atherosclerosis. Skull and face: Calvarium and visualized facial bones appear intact, without suspicious lesions. Sinuses: Visualized sinuses and mastoids are clear. IMPRESSION: 1. No acute intracranial process. 2. Mild atrophy and chronic microvascular ischemic changes. Dictated by: Meghan Rock M.D. on 12/14/2023 at 17:05 Approved by: Meghan Rock M.D. on 12/14/2023 at 17:05
--- NOTE | 2023-12-14 15:27 | DI.CT.S_ITS ---
PROCEDURE: CT ANGIO CHEST PE PROTOCOL INDICATIONS: Chest pain TECHNIQUE: After the administration of intravenous contrast, 2 mm thick sections acquired from the pulmonary apices to the posterior costophrenic angles. 3-dimensional maximum intensity projection (MIP) coronal and sagittal reformats were then acquired through the thorax. For radiation dose reduction, the following was used: automated exposure control, adjustment of mA and/or kV according to patient size. COMPARISON: None. FINDINGS: Image quality: Diagnostic. Pulmonary arteries: No filling defect in the pulmonary vasculature to the level of the proximal subsegmental pulmonary arteries. Main pulmonary artery is normal in caliber. Lower Neck: No enlarged lymph nodes. Thyroid: No thyroid nodules which require sonographic follow up, per consensus guidelines. Axillae: No enlarged lymph nodes. Chest Wall: Left chest wall pulse generator. Bones: No acute fractures. No aggressive appearing lytic or blastic osseous lesions. [id number] multilevel degenerative changes of the spine. Intact sternotomy wires. Lungs and Pleura: No pneumothorax or pleural effusions. No consolidation or suspicious nodules. Dependent atelectasis. Patent central airways. Heart: Heart size is normal. No pericardial effusion. Left-sided cardiac pacers terminate in expected positions. Aortic valve replacement. Thoracic Vessels: No aortic aneurysm. Common origin of the right brachiocephalic and left common carotid artery, normal variant. Mediastinum and [place]: No enlarged lymph nodes. Esophagus: No wall thickening. No hiatal hernia. Esophagus is patulous throughout its course. Upper Abdomen: Cholecystectomy. Mild calcification of the abdominal aorta. IMPRESSION: 1. No pulmonary embolus. 2. No acute cardiopulmonary process. 3. Esophagus is patulous throughout its course which may predispose to aspiration. Dictated by: Yang Espinoza M.D. on 12/14/2023 at 16:35 Approved by: Yang Espinoza M.D. on 12/14/2023 at 16:44
[2023-12-14 15:28] LABS: NT-proBNP (BNP-Adult 18+) 674 pg/mL (<125); Troponin I < 0.012 ng/mL (0.01-0.034)
--- NOTE | 2023-12-14 15:30 | ED_ITS ---
HPI - Chest Pain <Gil Davalos MD - Last Filed: 12/22/23 07:56> General Chief Complaint: Chest Pain Stated Complaint: Abd Pain, chest pain Time Seen by Provider: 12/14/23 15:19 Source: patient and EMS Mode of arrival: EMS Limitations: no limitations History of Present Illness HPI narrative: Patient has history coronary disease, AICD, stroke with left-sided residual weakness. Brought in by ambulance from home with symptoms starting around 10:00 a.m. this morning with chest discomfort epigastric discomfort nausea sweating and headache. Please see notes below from discharge summary for patient's medical history. Patient sees Cardiology Dr. Molina, [facility]. Patient did have run of tachycardia that was paced. While this rhythm was going patient could not feel it. Patient is on warfarin for his medical heart valve. Currently patient denies any chest pain. No history of aortic aneurysm or dissection. Patient has baseline left-sided weakness which is not new according to patient. Does not feel any different. Headache is minimal at this time. He states does not feel like his stroke he had with a headache at that time. History of Present Illness Date Patient Seen: 01/26/23 Time Patient Seen: 11:17 Chief complaint: Chest Pain Narrative: 72 y/o with PMH of coronary artery disease with prior bypass, aortic valve replacement, AICD and pacer on chronic anticoagulation, CVA in 10/2021 with left- sided deficits, presented to ED after AICD discharge while at home. Prior to this, he had one more episode of defibrilation, a year ago, when he was seen in ED with second stroke. AICD was placed 9 years ago. Prior to this he felt as usual. He did not have recent changes of medications. He mentioned that occasionally he has chest pain. Initial workup negative for ACS. desktop support consultant recommended observation and nuc. stress test but that was changed to echocardiogram after he reported on severe adverse reaction to injected contrast in [facility] in [facility] a year ago. On admission he has no chest pain. Discharge Providers Provider Date of admission: 01/25/23 19:52 Discharge Date: 01/26/23 Primary care physician: JAMAL Morris Discharge provider: Ashvin Muhammad DO Related Data Home Medications Medication Instructions Recorded Confirmed metoprolol succinate 25 mg 50 mg PO QAM 06/23/20 12/15/23 tablet,extended release 24 hr nitroglycerin 0.3 mg sublingual 0.3 mg sublingual Q5MIN PRN Chest 06/23/20 12/15/23 tablet Pain oxycodone 5 mg tablet 5 mg PO Q8HR PRN Pain (Scale Score 06/23/20 12/15/23 4-6) sacubitril 24 mg-valsartan 26 mg 0.5 tab PO BID 06/23/20 12/15/23 tablet (Entresto) warfarin 1 mg tablet 1 mg PO SEEINSTR 06/23/20 12/15/23 warfarin 1 mg tablet 2 mg PO SEEINSTR 06/23/20 01/25/23 atorvastatin 80 mg tablet 80 mg PO BEDTIME 07/02/23 12/15/23 cholecalciferol (vitamin D3) 1,250 1,250 mcg PO QWEEK 12/15/23 12/15/23 mcg (50,000 unit) capsule Allergies Allergy/AdvReac Type Severity Reaction Status Date / Time No Known Drug Allergies Allergy Verified 12/14/23 14:46 Patient History <Gil Davalos MD - Last Filed: 12/22/23 07:56> Medical History (Updated 12/14/23 @ 17:25 by Gil Davalos MD) Hx of completed stroke CAD (coronary artery disease) HTN (hypertension) Chronic pain Kidney stones Ascending aortic aneurysm Acute calculous cholecystitis Surgical History S/P CABG (coronary artery bypass graft) S/P AVR (aortic valve replacement) and aortoplasty AICD (automatic cardioverter/defibrillator) present Status post laparoscopic cholecystectomy Family History Mother Diabetes mellitus Father Diabetes mellitus Social History household members: spouse and children Smoking Status: Never smoker alcohol intake: current Smoking Status: Never smoker alcohol intake frequency: holidays/special occasions only Substance Use Type: does not use Exam <Gil Davalos MD - Last Filed: 12/22/23 07:56> Initial Vital Signs Initial Vital Signs: Vital Signs Pulse Rate 74 12/14/23 14:50 Pulse Oximetry 99 12/14/23 14:50 <Kilo Woody DO - Last Filed: 12/19/23 18:12> Initial Vital Signs Initial Vital Signs: Vital Signs Pulse Rate 74 12/14/23 14:50 Pulse Oximetry 99 12/14/23 14:50 <Sarah Valero DO - Last Filed: 12/15/23 16:53> Initial Vital Signs Initial Vital Signs: Vital Signs Pulse Rate 74 12/14/23 14:50 Pulse Oximetry 99 12/14/23 14:50 Course <Gil Davalos MD - Last Filed: 12/22/23 07:56> Orders Ordered: Discontinued Medications Acetaminophen (Acetaminophen 325 Mg Tablet) 650 mg PO Q6H PRN PRN Reason: mild pain -4 Aspirin (Aspirin 81 Mg Chew Tab) 324 mg PO NOW ONE Stop: 12/14/23 17:26 Last Admin: 12/14/23 17:47 Dose: Not Given Documented By: ROBSON Atorvastatin Calcium (Atorvastatin 20 Mg Tablet) 80 mg PO BEDTIME LESTER Sodium Chloride (Normal Saline 0.9%) 500 mls @ 1,000 mls/hr IV BOLUS ONE Stop: 12/14/23 17:54 Last Infusion: 12/14/23 18:29 Dose: Infused Documented By: Admin: 12/14/23 17:47 Dose: 1,000 mls/hr Documented By: ROBSON Metoprolol Succinate (Metoprolol Er 50 Mg Tablet) 50 mg PO DAILY LESTER Last Admin: 12/15/23 15:17 Dose: 50 mg Documented By: DEISI Naloxone HCl (Naloxone 0.4 Mg/Ml Vial) 0.2 mg IV Q2MIN PRN PRN Reason: Opiate Reversal Entresto 24-26 Mg (Tablet 0.5 Tab) 0.5 tab PO BID LESTER Oxycodone HCl (Oxycodone Ir 5 Mg Tablet) 5 mg PO NOW ONE Stop: 12/14/23 18:55 Last Admin: 12/14/23 18:58 Dose: 5 mg Documented By: ROBSON Oxycodone HCl (Oxycodone Ir 5 Mg Tablet) 5 mg PO NOW ONE Stop: 12/15/23 04:40 Last Admin: 12/15/23 04:42 Dose: 5 mg Documented By: ISHMAEL Oxycodone HCl (Oxycodone Ir 5 Mg Tablet) 5 mg PO Q8HR PRN PRN Reason: moderate to severe pain 5-10 Stop: 12/18/23 13:49 Last Admin: 12/15/23 13:55 Dose: 5 mg Documented By: Warfarin Sodium (Warfarin 2.5 Mg Tablet) 2.5 mg PO NOW ONE Stop: 12/15/23 14:10 Last Admin: 12/15/23 15:19 Dose: 2.5 mg Documented By: MPO Vital Signs Vital signs: Vital Signs - 8 hr 12/15/23 09:00 12/15/23 09:28 12/15/23 10:00 Pulse Rate 63 63 70 Respiratory Rate 14 20 Blood Pressure 125/59 L Pulse Oximetry 98 Oxygen Delivery Method Room Air 12/15/23 10:00 12/15/23 10:35 12/15/23 10:37 Pulse Rate 67 63 Respiratory Rate 10 L Blood Pressure 125/59 L Pulse Oximetry 97 Oxygen Delivery Method 12/15/23 10:37 12/15/23 11:00 12/15/23 11:30 Pulse Rate 62 60 Respiratory Rate 10 L 10 L Blood Pressure 134/62 Pulse Oximetry 98 98 Oxygen Delivery Method 12/15/23 11:57 12/15/23 11:57 12/15/23 12:48 Pulse Rate 61 72 Respiratory Rate 12 Blood Pressure 124/59 L Pulse Oximetry 98 98 Oxygen Delivery Method 12/15/23 12:51 12/15/23 12:51 12/15/23 13:00 Pulse Rate 76 67 Respiratory Rate 16 Blood Pressure 132/63 Pulse Oximetry 98 96 Oxygen Delivery Method 12/15/23 13:00 12/15/23 13:30 12/15/23 14:00 Pulse Rate 73 71 Respiratory Rate 18 Blood Pressure 125/64 Pulse Oximetry 97 97 Oxygen Delivery Method 12/15/23 14:01 12/15/23 14:01 12/15/23 15:17 Pulse Rate 71 67 Respiratory Rate 12 Blood Pressure 158/65 H 163/75 H Pulse Oximetry 98 Oxygen Delivery Method 12/15/23 15:18 12/15/23 15:18 12/15/23 15:29 Pulse Rate 69 67 Respiratory Rate 20 Blood Pressure 163/75 H 163/75 H Pulse Oximetry 97 100 Oxygen Delivery Method Room Air 12/15/23 15:30 12/15/23 16:00 Pulse Rate 66 65 Respiratory Rate Blood Pressure Pulse Oximetry 96 97 Oxygen Delivery Method <Kilo Woody, DO - Last Filed: 12/19/23 18:12> Orders Ordered: Discontinued Medications Acetaminophen (Acetaminophen 325 Mg Tablet) 650 mg PO Q6H PRN PRN Reason: mild pain -4 Aspirin (Aspirin 81 Mg Chew Tab) 324 mg PO NOW ONE Stop: 12/14/23 17:26 Last Admin: 12/14/23 17:47 Dose: Not Given Documented By: ROBSON Atorvastatin Calcium (Atorvastatin 20 Mg Tablet) 80 mg PO BEDTIME LESTER Sodium Chloride (Normal Saline 0.9%) 500 mls @ 1,000 mls/hr IV BOLUS ONE Stop: 12/14/23 17:54 Last Infusion: 12/14/23 18:29 Dose: Infused Documented By: Admin: 12/14/23 17:47 Dose: 1,000 mls/hr Documented By: ROBSON Metoprolol Succinate (Metoprolol Er 50 Mg Tablet) 50 mg PO DAILY [facility] Last Admin: 12/15/23 15:17 Dose: 50 mg Documented By: DEISI Naloxone HCl (Naloxone 0.4 Mg/Ml Vial) 0.2 mg IV Q2MIN PRN PRN Reason: Opiate Reversal Entresto 24-26 Mg (Tablet 0.5 Tab) 0.5 tab PO BID [facility] Oxycodone HCl (Oxycodone Ir 5 Mg Tablet) 5 mg PO NOW ONE Stop: 12/14/23 18:55 Last Admin: 12/14/23 18:58 Dose: 5 mg Documented By: ROBSON Oxycodone HCl (Oxycodone Ir 5 Mg Tablet) 5 mg PO NOW ONE Stop: 12/15/23 04:40 Last Admin: 12/15/23 04:42 Dose: 5 mg Documented By: ISHMAEL Oxycodone HCl (Oxycodone Ir 5 Mg Tablet) 5 mg PO Q8HR PRN PRN Reason: moderate to severe pain 5-10 Stop: 12/18/23 13:49 Last Admin: 12/15/23 13:55 Dose: 5 mg Documented By: Warfarin Sodium (Warfarin 2.5 Mg Tablet) 2.5 mg PO NOW ONE Stop: 12/15/23 14:10 Last Admin: 12/15/23 15:19 Dose: 2.5 mg Documented By: MPO Vital Signs Vital signs: Vital Signs - 8 hr 12/15/23 09:00 12/15/23 09:28 12/15/23 10:00 Pulse Rate 63 63 70 Respiratory Rate 14 20 Blood Pressure 125/59 L Pulse Oximetry 98 Oxygen Delivery Method Room Air 12/15/23 10:00 12/15/23 10:35 12/15/23 10:37 Pulse Rate 67 63 Respiratory Rate 10 L Blood Pressure 125/59 L Pulse Oximetry 97 Oxygen Delivery Method 12/15/23 10:37 12/15/23 11:00 12/15/23 11:30 Pulse Rate 62 60 Respiratory Rate 10 L 10 L Blood Pressure 134/62 Pulse Oximetry 98 98 Oxygen Delivery Method 12/15/23 11:57 12/15/23 11:57 12/15/23 12:48 Pulse Rate 61 72 Respiratory Rate 12 Blood Pressure 124/59 L Pulse Oximetry 98 98 Oxygen Delivery Method 12/15/23 12:51 12/15/23 12:51 12/15/23 13:00 Pulse Rate 76 67 Respiratory Rate 16 Blood Pressure 132/63 Pulse Oximetry 98 96 Oxygen Delivery Method 12/15/23 13:00 12/15/23 13:30 12/15/23 14:00 Pulse Rate 73 71 Respiratory Rate 18 Blood Pressure 125/64 Pulse Oximetry 97 97 Oxygen Delivery Method 12/15/23 14:01 12/15/23 14:01 12/15/23 15:17 Pulse Rate 71 67 Respiratory Rate 12 Blood Pressure 158/65 H 163/75 H Pulse Oximetry 98 Oxygen Delivery Method 12/15/23 15:18 12/15/23 15:18 12/15/23 15:29 Pulse Rate 69 67 Respiratory Rate 20 Blood Pressure 163/75 H 163/75 H Pulse Oximetry 97 100 Oxygen Delivery Method Room Air 12/15/23 15:30 12/15/23 16:00 Pulse Rate 66 65 Respiratory Rate Blood Pressure Pulse Oximetry 96 97 Oxygen Delivery Method <Sarah Valero DO - Last Filed: 12/15/23 16:53> Orders Ordered: Discontinued Medications Acetaminophen (Acetaminophen 325 Mg Tablet) 650 mg PO Q6H PRN PRN Reason: mild pain -4 Aspirin (Aspirin 81 Mg Chew Tab) 324 mg PO NOW ONE Stop: 12/14/23 17:26 Last Admin: 12/14/23 17:47 Dose: Not Given Documented By: ROBSON Atorvastatin Calcium (Atorvastatin 20 Mg Tablet) 80 mg PO BEDTIME [facility]STER Sodium Chloride (Normal Saline 0.9%) 500 mls @ 1,000 mls/hr IV BOLUS ONE Stop: 12/14/23 17:54 Last Infusion: 12/14/23 18:29 Dose: Infused Documented By: Admin: 12/14/23 17:47 Dose: 1,000 mls/hr Documented By: ROBSON Metoprolol Succinate (Metoprolol Er 50 Mg Tablet) 50 mg PO DAILY LESTER Last Admin: 12/15/23 15:17 Dose: 50 mg Documented By: DEISI Naloxone HCl (Naloxone 0.4 Mg/Ml Vial) 0.2 mg IV Q2MIN PRN PRN Reason: Opiate Reversal Entresto 24-26 Mg (Tablet 0.5 Tab) 0.5 tab PO BID [facility] Oxycodone HCl (Oxycodone Ir 5 Mg Tablet) 5 mg PO NOW ONE Stop: 12/14/23 18:55 Last Admin: 12/14/23 18:58 Dose: 5 mg Documented By: ROBSON Oxycodone HCl (Oxycodone Ir 5 Mg Tablet) 5 mg PO NOW ONE Stop: 12/15/23 04:40 Last Admin: 12/15/23 04:42 Dose: 5 mg Documented By: ISHMAEL Oxycodone HCl (Oxycodone Ir 5 Mg Tablet) 5 mg PO Q8HR PRN PRN Reason: moderate to severe pain 5-10 Stop: 12/18/23 13:49 Last Admin: 12/15/23 13:55 Dose: 5 mg Documented By: Warfarin Sodium (Warfarin 2.5 Mg Tablet) 2.5 mg PO NOW ONE Stop: 12/15/23 14:10 Last Admin: 12/15/23 15:19 Dose: 2.5 mg Documented By: DEISI Vital Signs Vital signs: Vital Signs - 8 hr 12/15/23 09:00 12/15/23 09:28 12/15/23 10:00 Pulse Rate 63 63 70 Respiratory Rate 14 20 Blood Pressure 125/59 L Pulse Oximetry 98 Oxygen Delivery Method Room Air 12/15/23 10:00 12/15/23 10:35 12/15/23 10:37 Pulse Rate 67 63 Respiratory Rate 10 L Blood Pressure 125/59 L Pulse Oximetry 97 Oxygen Delivery Method 12/15/23 10:37 12/15/23 11:00 12/15/23 11:30 Pulse Rate 62 60 Respiratory Rate 10 L 10 L Blood Pressure 134/62 Pulse Oximetry 98 98 Oxygen Delivery Method 12/15/23 11:57 12/15/23 11:57 12/15/23 12:48 Pulse Rate 61 72 Respiratory Rate 12 Blood Pressure 124/59 L Pulse Oximetry 98 98 Oxygen Delivery Method 12/15/23 12:51 12/15/23 12:51 12/15/23 13:00 Pulse Rate 76 67 Respiratory Rate 16 Blood Pressure 132/63 Pulse Oximetry 98 96 Oxygen Delivery Method 12/15/23 13:00 12/15/23 13:30 12/15/23 14:00 Pulse Rate 73 71 Respiratory Rate 18 Blood Pressure 125/64 Pulse Oximetry 97 97 Oxygen Delivery Method 12/15/23 14:01 12/15/23 14:01 12/15/23 15:17 Pulse Rate 71 67 Respiratory Rate 12 Blood Pressure 158/65 H 163/75 H Pulse Oximetry 98 Oxygen Delivery Method 12/15/23 15:18 12/15/23 15:18 12/15/23 15:29 Pulse Rate 69 67 Respiratory Rate 20 Blood Pressure 163/75 H 163/75 H Pulse Oximetry 97 100 Oxygen Delivery Method Room Air 12/15/23 15:30 12/15/23 16:00 Pulse Rate 66 65 Respiratory Rate Blood Pressure Pulse Oximetry 96 97 Oxygen Delivery Method MDM - Chest Pain <Gil Davalos MD - Last Filed: 12/22/23 07:56> Lab Data 12/14/23 14:45 12/14/23 14:45 Labs: Lab Results 12/14/23 12/14/23 12/15/23 Range/Units 14:45 18:54 10:37 WBC 12.5 H (4.5-11.0) X10^3/uL RBC 4.46 L (4.5-5.9) X10^6/uL Hgb 13.4 L (13.5-17.5) g/dL Hct 40.2 L (41-53) % MCV 90.1 (80-100) fL MCH 30.1 (26-34) PG MCHC 33.3 (30-36) % RDW 14.8 (11.6-14.8) % Plt Count 212 (150-400) X10^3/uL Neut % (Auto) 70.4 (50-75) % Lymph % (Auto) 18.5 L (25-40) % [place] % (Auto) 10.2 (3-14) % Eos % (Auto) 0.5 L (2-4) % Baso % (Auto) 0.4 (0-2) % Neut # (Auto) 8800 H (7095-7393) /uL Lymph # (Auto) 2300 (9246-9745) /uL [place] # (Auto) 1300 H (0-900) /uL Eos # (Auto) 100 (0-450) /uL Baso # (Auto) 0 (0-100) /uL PT 20.1 H (9.4-12.5) SECONDS INR 1.7 H (0.9-1.3) APTT 36 (25.1-36.5) SECONDS Sodium 137 (137-145) mmol/L Potassium 3.7 (3.4-5.1) mmol/L Chloride 101 (98-107) mmol/L Carbon Dioxide 25 (22-32) mmol/L BUN 19 (9-20) mg/dL Creatinine 0.94 (0.66-1.25) mg/dL Estimated GFR > 60 (>60) mL/min BUN/Creatinine Ratio 20.2 (6-22) Glucose 136 H (80-110) mg/dL Calcium 9.4 (8.4-10.2) mg/dL Magnesium 2.0 (1.6-2.3) mg/dL Total Bilirubin 1.6 H (0.2-1.3) mg/dL AST 51 (17-59) IU/L ALT 71 H (<50) IU/L Alkaline Phosphatase 65 (38-126) U/L Total Creatine Kinase 222 H 161 105 (55-170) U/L Troponin I < 0.012 0.013 < 0.012 (0.01-0.034) ng/mL NT-Pro-B Natriuret Pep 674 H (<125) pg/mL Total Protein 7.0 (6.3-8.2) g/dL Albumin 4.1 (3.5-5.0) g/dL Globulin 2.9 (1.7-4.1) g/dL Albumin/Globulin Ratio 1.4 (1.0-2.8) Lipase 181 (23-300) U/L Imaging Data CT scan - head: Radiologist's Impression: [address] [address] [address] Scan Report Signed Patient: Luis Mckeon MR#: [id number] : 1950 Acct:[id number] Age/Sex: 73 / M Date of Service: 12/14/23 Loc: ED Accession Number: [id number] Procedure: CT head/brain wo con Ordering Provider: Gil Davalos MD PROCEDURE: CT HEAD/BRAIN WO CON INDICATIONS: headache TECHNIQUE: Noncontrast 4.5 mm thick angled axial sections acquired from the foramen magnum to the vertex, with coronal and sagittal reformats. For radiation dose reduction, the following was used: automated exposure control, adjustment of mA and/or kV according to patient size. COMPARISON: [facility], CT, CT HEAD/BRAIN WO CON, 01/25/2022, 16:26. [facility], CT, CT HEAD WITHOUT CONTRAST, 09/28/2023, 8:49. FINDINGS: Image quality: Diagnostic. CSF spaces: Basal cisterns are patent. No extra-axial fluid collections. The ventricles are symmetric in size and shape. Brain: No intracranial bleeds or masses. There is cerebral volume loss for age, with resultant ventricular and sulcal prominence. There are periventricular and deep white matter chronic small vessel ischemic changes. There is intracranial internal carotid artery atherosclerosis. Skull and face: Calvarium and visualized facial bones appear intact, without suspicious lesions. Sinuses: Visualized sinuses and mastoids are clear. IMPRESSION: 1. No acute intracranial process. 2. Mild atrophy and chronic microvascular ischemic changes. Dictated by: Meghan Rock M.D. on 12/14/2023 at 17:05 Approved by: Meghan Rock M.D. on 12/14/2023 at 17:05 CT scan - chest: Radiologist's Impression: [address] [address] [address] Scan Report Signed Patient: Luis Mckeon MR#: [id number] : 1950 Acct:[id number] Age/Sex: 73 / M Date of Service: 12/14/23 Loc: ED Accession Number: [id number] Procedure: CT angio chest PE protocol Ordering Provider: Gil Davalos MD PROCEDURE: CT ANGIO CHEST PE PROTOCOL INDICATIONS: Chest pain TECHNIQUE: After the administration of intravenous contrast, 2 mm thick sections acquired from the pulmonary apices to the posterior costophrenic angles. 3-dimensional maximum intensity projection (MIP) coronal and sagittal reformats were then acquired through the thorax. For radiation dose reduction, the following was used: automated exposure control, adjustment of mA and/or kV according to patient size. COMPARISON: None. FINDINGS: Image quality: Diagnostic. Pulmonary arteries: No filling defect in the pulmonary vasculature to the level of the proximal subsegmental pulmonary arteries. Main pulmonary artery is normal in caliber. Lower Neck: No enlarged lymph nodes. Thyroid: No thyroid nodules which require sonographic follow up, per consensus guidelines. Axillae: No enlarged lymph nodes. Chest Wall: Left chest wall pulse generator. Bones: No acute fractures. No aggressive appearing lytic or blastic osseous lesions. Bmpx-gn-bjlmhnol multilevel degenerative changes of the spine. Intact sternotomy wires. Lungs and Pleura: No pneumothorax or pleural effusions. No consolidation or suspicious nodules. Dependent atelectasis. Patent central airways. Heart: Heart size is normal. No pericardial effusion. Left-sided cardiac pacers terminate in expected positions. Aortic valve replacement. Thoracic Vessels: No aortic aneurysm. Common origin of the right brachiocephalic and left common carotid artery, normal variant. Mediastinum and Zeinab: No enlarged lymph nodes. Esophagus: No wall thickening. No hiatal hernia. Esophagus is patulous throughout its course. Upper Abdomen: Cholecystectomy. Mild calcification of the abdominal aorta. IMPRESSION: 1. No pulmonary embolus. 2. No acute cardiopulmonary process. 3. Esophagus is patulous throughout its course which may predispose to aspiration. Dictated by: Yang Espinoza M.D. on 12/14/2023 at 16:35 Approved by: Yang Espinoza M.D. on 12/14/2023 at 16:44 CT scan - abdomen/pelvis: Radiologist's Impression: [address] [address] [address] Scan Report Signed Patient: Luis Mckeon MR#: [id number] : 1950 Acct:[id number] Age/Sex: 73 / M Date of Service: 12/14/23 Loc: ED Accession Number: [id number] Procedure: CT abdomen pelvis w con Ordering Provider: Gil Davalos MD PROCEDURE: CT ABDOMEN PELVIS W CON INDICATIONS: Abdominal pain TECHNIQUE: After the administration of intravenous contrast, axial sections acquired from the lung bases to the pubic symphysis. Coronal and sagittal reformats were performed. For radiation dose reduction, the following was used: automated exposure control, adjustment of mA and/or kV according to patient size. COMPARISON: None. FINDINGS: Image quality: Diagnostic. Lower Chest: Cardiac generator device. Aortic valve replacement. No pleural effusion. ABDOMEN: Liver: Hypodense focus in the right lobe of the liver. Possibly a benign cyst or hemangioma. Gallbladder: Absent. Biliary ducts: No biliary dilation. Pancreas: No ductal dilation. Small cyst in the head of the pancreas measuring 1.2 x 0.8 cm, (2/35). Spleen: Size is within normal limits. Small cyst or hemangioma in the liver. Adrenal Glands: Thickening of the left adrenal gland. Kidneys and Ureters: No hydronephrosis. No solid mass. No complex renal cystic lesion which requires follow up. Stomach and Bowel: Prominent stool in the rectum. Prominent stool in the right colon. The appendix is not dilated. No small bowel obstruction. The stomach is fluid- filled. Peritoneum: No abnormal intraperitoneal fluid. No free air. Ventral Wall: No significant ventral hernia. Abdominal Nodes: No retroperitoneal or mesenteric adenopathy by size criteria. Vessels: Aorta and inferior vena cava are normal in size. PELVIS: Pelvic Organs: Prostatomegaly. Bladder: Only partially distended. No stone. Pelvic Nodes: No enlarged lymph nodes. Miscellaneous: No inguinal hernias are seen. Bones: No aggressive osseous abnormality. Post median sternotomy. IMPRESSION: 1. No acute abnormality identified. No free fluid. 2. There is prominent stool in the colon and rectum. Raising the possibility of constipation. -Recommend clinical correlation. 3. Small cyst in the head of the pancreas measuring 1.2 cm. -Recommend follow-up CT pancreas or MRI in 2 years. Dictated by: Shashank Martinez M.D. on 12/14/2023 at 16:36 Approved by: Shashank Martinez M.D. on 12/14/2023 at 16:49 Chest x-ray: Radiologist's Impression: [address] [address] XRay Report Signed Patient: Luis Mckeon MR#: [id number] : 1950 Acct:[id number] Age/Sex: 73 / M Date of Service: 12/14/23 Loc: ED Accession Number: [id number] Procedure: XR chest 1V Ordering Provider: Gil Davalos MD PROCEDURE: XR CHEST 1V INDICATIONS: chest pain TECHNIQUE: One view of the chest was acquired. COMPARISON: [facility], XR CHEST 1V, 07/02/2023, 5:07. FINDINGS: Surgical changes and devices: Sternal wires and pacemaker are present. Lungs and pleura: Lungs are clear. No pleural effusions or pneumothorax. Mediastinum: Mediastinal contours appear normal. Heart size is normal. Bones and chest wall: No suspicious bony lesions. Overlying soft tissues appear unremarkable. IMPRESSION: No acute pulmonary process. Dictated by: Meghan Rock M.D. on 12/14/2023 at 16:45 Approved by: Meghan Rock M.D. on 12/14/2023 at 16:45 [facility] Narrative Medical decision making narrative: Patient has history coronary disease, AICD, stroke with left-sided residual weakness. Brought in by ambulance from home with symptoms starting around 10:00 a.m. this morning with chest discomfort epigastric discomfort nausea sweating and headache. Please see notes below from discharge summary for patient's medical history. Patient sees Cardiology Dr. Molina, [facility]. Patient did have run of tachycardia that was paced. While this rhythm was going patient could not feel it. Patient is on warfarin for his medical heart valve. Currently patient denies any chest pain. No history of aortic aneurysm or dissection. Patient has baseline left-sided weakness which is not new according to patient. Does not feel any different. Headache is minimal at this time. He states does not feel like his stroke he had with a headache at that time. After history and exam CT head CT chest CT abdomen pelvis EKG CBC CMP troponin PT INR PTT, [place] [employer] for pacemaker interrogation will be here in 2 hours [facility] Medical records reviewed: Differential considered: Includes but not limited to Lab Test results independently reviewed as above. Pertinent findings: WBC 12.5 hemoglobin 13.4 platelets 212 INR 1.7 sodium 137 potassium 3.7 BUN 19 creatinine 0.94 GFR greater than 60 glucose 136 AST 51 ALT 71 troponin less than 0.012 BNP 674 Independently reviewed EKG sinus rhythm rate [address] elevation or depression Imaging studies independently reviewed: Chest x-ray no acute finding CT head no acute finding CT chest PE protocol no acute finding CT abdomen no acute finding Consultations: 5:00 p.m.. Spoke with Cardiology, [facility], Dr. Alves, on-call for Dr. Molina, recommends patient to be admitted however may need to be admitted to [facility] for complexity of his allergies to chemical stress test. 5:20 p.m.. Spoke with [facility], Dr. Muhammad, hospitalist, he did find results of patient's allergy to chemical stress test with rigors tremulous episode. Recommends [facility] be [facility] [facility] Treat[facility]: Normal saline Re-evaluations: 3:39 p.m.. Patient denies any shock from his pacemaker any time today or now 5:30 p.m.. Updated patient results. They are reassuring however will need to be transferred to [facility] for higher level care due to his allergies to chemical stress test. He does understand 5:35 p.m.. [employer] interrogate here for pacemaker. She will call Dr Alves with findings Discussion: 6:00 p.m.. Brennick: Sign out to Dr Woody, awaiting for [facility] to call back. Cardiology services recommended transfer, Dr. Muhammad here hospitalist recommends transfer. Diagnosis: Chest pain <Kilo Woody, DO - Last Filed: 12/19/23 18:12> Lab Data Labs: Lab Results 12/14/23 12/14/23 12/15/23 Range/Units 14:45 18:54 10:37 WBC 12.5 H (4.5-11.0) X10^3/uL RBC 4.46 L (4.5-5.9) X10^6/uL Hgb 13.4 L (13.5-17.5) g/dL Hct 40.2 L (41-53) % MCV 90.1 (80-100) fL MCH 30.1 (26-34) PG MCHC 33.3 (30-36) % RDW 14.8 (11.6-14.8) % Plt Count 212 (150-400) X10^3/uL Neut % (Auto) 70.4 (50-75) % Lymph % (Auto) 18.5 L (25-40) % [place] % (Auto) 10.2 (3-14) % Eos % (Auto) 0.5 L (2-4) % Baso % (Auto) 0.4 (0-2) % Neut # (Auto) 8800 H (6802-4095) /uL Lymph # (Auto) 2300 (0555-5751) /uL [place] # (Auto) 1300 H (0-900) /uL Eos # (Auto) 100 (0-450) /uL Baso # (Auto) 0 (0-100) /uL PT 20.1 H (9.4-12.5) SECONDS INR 1.7 H (0.9-1.3) APTT 36 (25.1-36.5) SECONDS Sodium 137 (137-145) mmol/L Potassium 3.7 (3.4-5.1) mmol/L Chloride 101 (98-107) mmol/L Carbon Dioxide 25 (22-32) mmol/L BUN 19 (9-20) mg/dL Creatinine 0.94 (0.66-1.25) mg/dL Estimated GFR > 60 (>60) mL/min BUN/Creatinine Ratio 20.2 (6-22) Glucose 136 H (80-110) mg/dL Calcium 9.4 (8.4-10.2) mg/dL Magnesium 2.0 (1.6-2.3) mg/dL Total Bilirubin 1.6 H (0.2-1.3) mg/dL AST 51 (17-59) IU/L ALT 71 H (<50) IU/L Alkaline Phosphatase 65 (38-126) U/L Total Creatine Kinase 222 H 161 105 (55-170) U/L Troponin I < 0.012 0.013 < 0.012 (0.01-0.034) ng/mL NT-Pro-B Natriuret Pep 674 H (<125) pg/mL Total Protein 7.0 (6.3-8.2) g/dL Albumin 4.1 (3.5-5.0) g/dL Globulin 2.9 (1.7-4.1) g/dL Albumin/Globulin Ratio 1.4 (1.0-2.8) Lipase 181 (23-300) U/L [facility] Narrative Medical decision making narrative: Patient has history coronary disease, AICD, stroke with left-sided residual weakness. Brought in by ambulance from home with symptoms starting around 10:00 a.m. this morning with chest discomfort epigastric discomfort nausea sweating and headache. Please see notes below from discharge summary for patient's medical history. Patient sees Cardiology Dr. Molina, [facility]. Patient did have run of tachycardia that was paced. While this rhythm was going patient could not feel it. Patient is on warfarin for his medical heart valve. Currently patient denies any chest pain. No history of aortic aneurysm or dissection. Patient has baseline left-sided weakness which is not new according to patient. Does not feel any different. Headache is minimal at this time. He states does not feel like his stroke he had with a headache at that time. After history and exam CT head CT chest CT abdomen pelvis EKG CBC CMP troponin PT INR PTT, [place] [employer] for pacemaker interrogation will be here in 2 hours [facility] Medical records reviewed: Differential considered: Includes but not limited to Lab Test results independently reviewed as above. Pertinent findings: WBC 12.5 hemoglobin 13.4 platelets 212 INR 1.7 sodium 137 potassium 3.7 BUN 19 creatinine 0.94 GFR greater than 60 glucose 136 AST 51 ALT 71 troponin less than 0.012 BNP 674 Independently reviewed EKG sinus rhythm rate [address] elevation or depression Imaging studies independently reviewed: Chest x-ray no acute finding CT head no acute finding CT chest PE protocol no acute finding CT abdomen no acute finding Consultations: 5:00 p.m.. Spoke with Cardiology, [facility], Dr. Alves, on-call for Dr. Molina, recommends patient to be admitted however may need to be admitted to [facility] for complexity of his allergies to chemical stress test. 5:20 p.m.. Spoke with [facility], Dr. Muhammad, hospitalist, he did find results of patient's allergy to chemical stress test with rigors tremulous episode. Recommends patient be transferred to [facility] Treatments: Normal saline Re-evaluations: 3:39 p.m.. Patient denies any shock from his pacemaker any time today or now 5:30 p.m.. Updated patient results. They are reassuring however will need to be transferred to [facility] for higher level care due to his allergies to chemical stress test. He does understand 5:35 p.m.. [employer] interrogate here for pacemaker. She will call Dr Alves with findings Discussion: 6:00 p.m.. Anoop: Sign out to Dr Woody, awaiting for [facility] to call back. Cardiology services recommended transfer, Dr. Muhammad here hospitalist recommends transfer. Diagnosis: Chest pain Dr Woody: overnight 12/13-12/14: Received turned over. Review patient's history and physical and workup to this point. Patient has a 2- troponins. Has been stable overnight. No further issues with tachycardia. Still no bed availability at any receiving facility. Will continue to observe patient. Care turned over to day provider to follow until disposition can be met. <Sarah Valero, - Last Filed: 12/15/23 16:53> Lab Data Labs: Lab Results 12/14/23 12/14/23 12/15/23 Range/Units 14:45 18:54 10:37 WBC 12.5 H (4.5-11.0) X10^3/uL RBC 4.46 L (4.5-5.9) X10^6/uL Hgb 13.4 L (13.5-17.5) g/dL Hct 40.2 L (41-53) % MCV 90.1 (80-100) fL MCH 30.1 (26-34) PG MCHC 33.3 (30-36) % RDW 14.8 (11.6-14.8) % Plt Count 212 (150-400) X10^3/uL Neut % (Auto) 70.4 (50-75) % Lymph % (Auto) 18.5 L (25-40) % [place] % (Auto) 10.2 (3-14) % Eos % (Auto) 0.5 L (2-4) % Baso % (Auto) 0.4 (0-2) % Neut # (Auto) 8800 H (7764-0183) /uL Lymph # (Auto) 2300 (9239-1861) /uL [place] # (Auto) 1300 H (0-900) /uL Eos # (Auto) 100 (0-450) /uL Baso # (Auto) 0 (0-100) /uL PT 20.1 H (9.4-12.5) SECONDS INR 1.7 H (0.9-1.3) APTT 36 (25.1-36.5) SECONDS Sodium 137 (137-145) mmol/L Potassium 3.7 (3.4-5.1) mmol/L Chloride 101 (98-107) mmol/L Carbon Dioxide 25 (22-32) mmol/L BUN 19 (9-20) mg/dL Creatinine 0.94 (0.66-1.25) mg/dL Estimated GFR > 60 (>60) mL/min BUN/Creatinine Ratio 20.2 (6-22) Glucose 136 H (80-110) mg/dL Calcium 9.4 (8.4-10.2) mg/dL Magnesium 2.0 (1.6-2.3) mg/dL Total Bilirubin 1.6 H (0.2-1.3) mg/dL AST 51 (17-59) IU/L ALT 71 H (<50) IU/L Alkaline Phosphatase 65 (38-126) U/L Total Creatine Kinase 222 H 161 105 (55-170) U/L Troponin I < 0.012 0.013 < 0.012 (0.01-0.034) ng/mL NT-Pro-B Natriuret Pep 674 H (<125) pg/mL Total Protein 7.0 (6.3-8.2) g/dL Albumin 4.1 (3.5-5.0) g/dL Globulin 2.9 (1.7-4.1) g/dL Albumin/Globulin Ratio 1.4 (1.0-2.8) Lipase 181 (23-300) U/L ECG Data Attestation: I personally reviewed and interpreted this ECG as follows: Prior ECG tracings: available for review Interpretation: Sinus rhythm rate 75 NH interval 100 QRS 82 QTC 457 PVCs noted T-wave inversion noted in aVL similar to prior no acute ST changes MDM Narrative Medical decision making narrative: Patient has history coronary disease, AICD, stroke with left-sided residual weakness. Brought in by ambulance from home with symptoms starting around 10:00 a.m. this morning with chest discomfort epigastric discomfort nausea sweating and headache. Please see notes below from discharge summary for patient's medical history. Patient sees Cardiology Dr. Molina, [facility]. Patient did have run of tachycardia that was paced. While this rhythm was going patient could not feel it. Patient is on warfarin for his medical heart valve. Currently patient denies any chest pain. No history of aortic aneurysm or dissection. Patient has baseline left-sided weakness which is not new according to patient. Does not feel any different. Headache is minimal at this time. He states does not feel like his stroke he had with a headache at that time. After history and exam CT head CT chest CT abdomen pelvis EKG CBC CMP troponin PT INR PTT, [place] [employer] for pacemaker interrogation will be here in 2 hours MDM Medical records reviewed: Differential considered: Includes but not limited to Lab Test results independently reviewed as above. Pertinent findings: WBC 12.5 hemoglobin 13.4 platelets 212 INR 1.7 sodium 137 potassium 3.7 BUN 19 creatinine 0.94 GFR greater than 60 glucose 136 AST 51 ALT 71 troponin less than 0.012 BNP 674 Independently reviewed EKG sinus rhythm rate [address] elevation or depression Imaging studies independently reviewed: Chest x-ray no acute finding CT head no acute finding CT chest PE protocol no acute finding CT abdomen no acute finding Consultations: 5:00 p.m.. Spoke with Cardiology, [facility], Dr. Alves, on-call for Dr. Molina, recommends patient to be admitted however may need to be admitted to [facility] for complexity of his allergies to chemical stress test. 5:20 p.m.. Spoke with [facility], Dr. Muhammad, hospitalist, he did find results of patient's allergy to chemical stress test with rigors tremulous episode. Recommends patient be transferred to [facility] Treatments: Normal saline Re-evaluations: 3:39 p.m.. Patient denies any shock from his pacemaker any time today or now 5:30 p.m.. Updated patient results. They are reassuring however will need to be transferred to [facility] for higher level care due to his allergies to chemical stress test. He does understand 5:35 p.m.. [place] [employer] interrogate here for pacemaker. She will call Dr Alves with findings Discussion: 6:00 p.m.. Anoop: Sign out to Dr Woody, awaiting for [facility] to call back. Cardiology services recommended transfer, Dr. Muhammad here hospitalist recommends transfer. Diagnosis: Chest pain Dr Lanker: overnight 12/13-12/14: Received turned over. Review patient's history and physical and workup to this point. Patient has a 2- troponins. Has been stable overnight. No further issues with tachycardia. Still no bed availability at any receiving facility. Will continue to observe patient. Care turned over to day provider to follow until disposition can be met. 12/15/[address] Valero-patient seen evaluated by myself. He overall is feeling much better this morning. He presented yesterday with diaphoresis and chest pain. He is followed by Dr. Molina [facility]. He had his pacemaker interrogated. Apparently some run of tachycardia pacemaker was corrected. Cardiology was consulted yesterday a recommended transfer to higher level of care. He does not tolerate chemical stress test and can not participate in a treadmill secondary to stroke. He currently is not have any sort of chest pain he has feeling a lot better. Difficult to say if his cardiac event yesterday was secondary to pacemaker issue versus acute coronary syndrome. Patient reports that he had significant chest pain ongoing for a number of hours yesterday. He has been chest pain-free now He reports that he has never had a cardiac catheterization accepts for in 2009 when he had his bypass in his aortic valve replaced. In 2021 he had a nuclear stress test where he had a reaction. 10:30 Dr. Crystal, cardiology, at [facility] updated patient's symptoms test results it was unclear at that alone patient had had symptoms for but she reports that patient has been an ED for 20 hours 3 with negative troponins would benefit from cardiac catheterization but probably does not need to be transferred for a test. Recommend trying to get patient to [facility] where it is closer in his j2ee software engineer is Further discussion with family at bedside apparently patient was falling multiple times yesterday. Now patient has been up to the restroom many times he has been in the emergency department he has not fallen he has not unsteady he has no recurrence of any sort of chest pain or diaphoresis. [facility] continues to be boarding patient and has critical bed shortage [facility] no beds [facility] not taking any transfer [facility] not taking any transfers 1600 Dr. Cherry updated on patient's symptoms and test results. He agrees that patient has 3- troponins no longer having symptoms has substantially ruled out for acute coronary syndrome. He does recommend that patient get a cardiac catheterization but can be done as an outpatient Long discussion with patient and family at bedside they all understand that he needs further testing to call cardiology on Monday and that he must return to the emergency department if he should have new or worsening symptoms. I even encouraged him to call 911. They all verbally understood and repeated it back to me Critical Care Time <Sarah Anjum, DO - Last Filed: 12/15/23 16:53> Critical Care Time Critical Care Time: Yes Total Critical Care Time: 45 Attestation: The high probability of a clinically significant, sudden or life threatening deterioration of the [cardiovascular] system(s) required my full and direct attention, intervention and personal management. The aggregate critical care time was [45] minutes. This time is in addition to time spent performing reported procedures but includes the following: [x] Data Review and interpretation [x] Patient assessment and monitoring of vital signs [x] Documentation [x] Medication orders and management Discharge Plan Departure Patient Disposition: Home Clinical Impression: Chest pain Qualifiers: Chest pain type: unspecified Qualified Code(s): R07.9 - Chest pain, unspecified Activity Restrictions/Additional Instructions: *You have been diagnosed with chest pain *What to do: At this time it is imperative in very important that you must follow-up with your j2ee software engineer Dr. Molina or one of his partners. You do need further testing including probable cardiac heart catheterizations. Unfortunately today of the hospital system is overwhelmed and we are not able to get you to appropriate care however after talking with multiple j2ee software engineer we feel like it is safe for you to go home Pleae have your INR rechecked it was a little low today *Continue to take medications as directed *Follow up with your primary care provider in 2-3 days or call [phone] *Return to ER if you should have chest pain diaphoresis falling dizziness passing or any new, worsening or concerning symptoms Prescriptions: No Action nitroglycerin 0.3 mg tablet, sublingual 0.3 mg sublingual Q5MIN PRN (Reason: Chest Pain) Patient Comments: Place 1 tablet (0.3 mg total) under the tongue every 5 (five) min...(REFER TO PRESCRIPTION NOTES). metoprolol succinate 25 mg tablet extended release 24 hr 50 mg PO QAM warfarin 1 mg tablet 1 mg PO SEEINSTR Patient Comments: take 2 tablets by mouth once daily EXCEPT MONDAY AND MONDAY TAKE 1MG Rx Instructions: take 2 tablets by mouth once daily EXCEPT monday AND monday warfarin 1 mg tablet 2 mg PO SEEINSTR Patient Comments: take 2 tablets by mouth once daily EXCEPT MONDAY AND MONDAY TAKE 1MG Rx Instructions: take two tablet by mouth Monday/ Monday oxycodone 5 mg tablet 5 mg PO Q8HR PRN (Reason: Pain (Scale Score 4-6)) Patient Comments: take 1 tablet by mouth twice a day Entresto 24-26 mg tablet 0.5 tab PO BID Patient Comments: take 1/2 tablet by mouth twice a day cholecalciferol (vitamin D3) 1,250 mcg (50,000 unit) capsule 1,250 mcg PO QWEEK atorvastatin 80 mg tablet 80 mg PO BEDTIME Referrals: Mohini Dc ARNP [Primary Care Provider] - Stand Alone Forms: Patient Portal/API
[2023-12-14] MEDS: SODIUM CHLORIDE 0.9% 500 ML 1000 ML IV (17:47)
[2023-12-14] MEDS: OXYCODONE IR 5 MG TABLET PO (18:58)
[2023-12-14 19:22] LABS: Creatine Kinase 161 U/L (55-170)
[2023-12-14 19:35] LABS: Troponin I 0.013 ng/mL (0.01-0.034)
[2023-12-15] VITALS (42 sets, daily range): BP systolic 104–163; BP diastolic 53–75; PULSE 57–82; RESP 10–20; O2SAT 95–100
[2023-12-15] MEDS: OXYCODONE IR 5 MG TABLET PO ×2 (04:42→13:55)
--- NOTE | 2023-12-15 06:56 | PC.NURSE ---
Pt states he has a pressure sore to L heel that his doctor has recommended a heel float bodivyae
--- NOTE | 2023-12-15 08:36 | EKG_ITS ---
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
--- NOTE | 2023-12-15 08:42 | PC.NURSE ---
Transfer Status Called [facility] at 0831 am on 12/15/2023. Spoke with lead warehouse associate Sam. Dimitris faith stated that their bed situation isn't good. Told earliest chance for bed placement was late today. Dimitris faith recommended calling other facilities for placement. Called [facility] at 0838 am on 12/15/2023. Spoke with Nabila at the patient transfer center. Nabila stated that is waiting on discharges this morning, but there is good chance for a bed to become available.
[2023-12-15 10:58] LABS: Creatine Kinase 105 U/L (55-170)
[2023-12-15 11:09] LABS: Troponin I < 0.012 ng/mL (0.01-0.034)
--- NOTE | 2023-12-15 15:04 | PC.NURSE ---
Home med list completed w/ pt. New orders obtained.
[2023-12-15] MEDS: METOPROLOL ER 50 MG TABLET PO (15:17)
[2023-12-15] MEDS: WARFARIN 2.5 MG TABLET PO (15:19)
--- NOTE | 2023-12-15 15:39 | PC.NURSE ---
Pt a&o x4. Ambulates to bathroom with steady gait and independently. Remains cp free and denies any SOB or difficulty breathing. and family member at bedside. VS WNL.
== END 2023-12-15 16:37 | disposition home or self-care (01) ==
PROVIDERS: Emergency Medicine; Emergency Provider Emergency Medicine; PCP Nurse Practitioner Family
DX: R07.9 Chest pain, unspecified (principal); R10.13 Epigastric pain; R51.9 Headache, unspecified; R53.1 Weakness; Z79.01 Long term (current) use of anticoagulants; I50.9 Heart failure, unspecified; Z95.2 Presence of prosthetic heart valve; Z86.73 Personal history of transient ischemic attack (TIA), and cerebral infarction without residual deficits; Z95.0 Presence of cardiac pacemaker
CPT/HCPCS: 36415; 70450; 71045; 71275; 74177; 80053; 82550; 83690; 83735; 83880; 84484; 85025; 85610; 85730; 93005; 96360; 99284; 99291; Q9967

== ENCOUNTER → 2024-09-25 07:56 | Outpatient (CLI) | payer MEDICARE, SELFPAY ==
[2023-01-25 21:15] VITALS: BMI 27.4
--- NOTE | 2024-09-25 07:57 | DI.ECHO.S_ITS ---
[facility]+ [facility] : : [address] : : [place] : : [id number] : : Phone: [phone] Echocardiogram Report + + :Name: AWILDA NORWOOD Study Date: 09/25/2024 Height: 64 in : :Hospital ReadingLocation: Weight: 142 lb : : Gender: Male BSA: 1.7 m2 : :: 1950 Age: 74 yrs BP: 107/65 mmHg: :Reason For Study: HEART FAILURE WITH IMPROVED EJECTION : :FRACTION : :Ordering Physician: JUS, : :AV Performed By: Nina Gaspar : :Referring: SERGIO MOLINA : + + Interpretation Summary The left ventricle is normal in size and wall thickness. The ejection fraction is estimated to be 50-55%. There has been no significant change since the previous exam. The right ventricle is normal size. There is a pacemaker lead in the right ventricle. Right ventricular systolic function is mildly reduced. The right ventricular systolic pressure is estimated to be at least 30 mmHg based on an estimated right atrial pressure of 3 mm Hg. The left atrium is mildly dilated. There is mild mitral regurgitation. There is a prosthetic aortic valve. There is mild intravalvular regurgitation through the prosthetic aortic valve. There is mild perivalvular regurgitation around the prosthetic aortic valve. The peak aortic velocity is 1.7 m/sec. There is moderate tricuspid regurgitation. Procedure: A two-dimensional transthoracic echocardiogram with color flow and Doppler was performed. The study quality was technically adequate. Comparison is made with the echocardiogram of 04/28/2022. The patient had occasional PVCs during the exam. The heart rate ranged between 52-72 bpm during the study. Left Ventricle: The left ventricle is normal in size and wall thickness. The ejection fraction is estimated to be 50-55%. There has been no significant change since the previous exam. Septal motion is consistent with post- operative state. Diastolic parameters suggest probable normal left ventricular diastolic function and normal filling pressures. Right Ventricle: The right ventricle is normal size. There is a pacemaker lead in the right ventricle. Right ventricular systolic function is mildly reduced. Atria: The left atrium is mildly dilated. Right atrial size is normal. There is a catheter/pacemaker lead seen in the right atrium. There is no Doppler evidence for an interatrial shunt. Mitral Valve: The mitral valve leaflets appear to open well. There is mild mitral regurgitation. Aortic Valve: There is a prosthetic aortic valve. There is mild intravalvular regurgitation through the prosthetic aortic valve. There is mild perivalvular regurgitation around the prosthetic aortic valve. The peak aortic velocity is 1.7 m/sec. The aortic valve mean gradient is 6.3 mmHg. Tricuspid Valve: The tricuspid valve leaflets are thin and pliable. There is moderate tricuspid regurgitation. The right ventricular systolic pressure is estimated to be at least 30 mmHg based on an estimated right atrial pressure of 3 mm Hg. Pulmonic Valve: The pulmonic valve is not well seen, but is grossly normal. There is a trace or physiologic amount of pulmonic regurgitation. Great Vessels: The dimensions of the ascending aorta are normal. The IVC is of normal diameter and collapses greater than 50% with a sniff. This suggests a low right atrial pressure of 3 mm Hg. Pericardium/ Pleura There is no pericardial effusion. There is no pleural effusion. MMode/2D Measurements & Calculations LVIDd: 4.9 cm LVOT diam: 2.0 cm LVIDs: 3.6 cm asc Aorta Diam: 2.9 cm FS: 25.9 % Ao Arch Diam (Prox Trans): 2.6 cm EPSS: 0.70 cm IVSd: 0.69 cm LVPWd: 0.77 cm LV cortez. diameter/BSA (cm/m^2): 2.9 LV sys. diameter/BSA (cm/m^2): 2.1 LA A2 area: 21.6 cm2 RA long axis: 4.9 cm LA A4 area: 20.6 cm2 RA area: 17.0 cm2 LA length (vol): 5.5 cm RA vol: 50.2 ml LA vol: 69.1 ml RA : 29.7 ml/m2 LA vol index: 40.9 ml/m2 IVC diam: 1.1 cm RVD1 (basal): 3.5 cm RVD2 (mid): 3.7 cm TAPSE: 1.4 cm Doppler Measurements & Calculations Ao V2 max: 191.4 cm/sec LVOT Max Abilio: 51.8 cm/sec Ao V2 mean: 137.5 cm/sec LV V1 max P.1 mmHg Ao max P.7 mmHg LV V1 VTI: 11.7 cm Ao mean P.3 mmHg JORJE(I,D): 0.96 cm2 Ao V2 VTI: 39.3 cm JORJE(V,D): 0.87 cm2 sev ratio: 0.30 JORJE indexed to BSA (cm^2/m^2): 0.57 MV E max abilio: 57.8 cm/sec TR max abilio: 257.6 cm/sec MV A max abilio: 33.2 cm/sec TR max P.5 mmHg MV E/A: 1.7 PA V2 max: 67.6 cm/sec Med Peak E' Abilio: 5.4 cm/sec PA V2 mean: 47.4 cm/sec E/E' med: 10.8 PA mean P.0 mmHg Lat Peak E' Abilio: 13.7 cm/sec PA pr(Accel): 14.8 mmHg E/E' lat: 4.2 E/e' average: 7.5 MV dec time: 0.17 sec SV(LVOT): 37.6 ml Reading Physician:05:40 PM
== END ==
PROVIDERS: PCP Nurse Practitioner Family; Referring Provider Internal Medicine Cardiovascular Disease; Visit Provider Internal Medicine Cardiovascular Disease
DX: I08.3 Combined rheumatic disorders of mitral, aortic and tricuspid valves (principal); I50.32 Chronic diastolic (congestive) heart failure; Z95.2 Presence of prosthetic heart valve
CPT/HCPCS: 93306

== ENCOUNTER 2024-10-29 19:30 | Emergency (ER) | payer MEDICARE, SELFPAY ==
[2023-01-25 21:15] VITALS: BMI 27.4
[2024-10-29 20:25] VITALS: BP 120/56; PULSE 59; RESP 16; TEMP 36.8; O2SAT 98; BMI 23.6
== END 2024-10-29 20:54 | disposition left against medical advice (07) ==
PROVIDERS: Emergency Provider Student in an Organized Health Care Education/Training Program; PCP Nurse Practitioner Family
DX: Z53.21 Procedure and treatment not carried out due to patient leaving prior to being seen by health care provider (principal)
CPT/HCPCS: 99281

== ENCOUNTER 2025-03-07 00:50 | Emergency (ER) | payer MEDICARE, SELFPAY ==
[2024-12-03 14:47] VITALS: BMI 24.7
[2025-03-07 01:01] VITALS: BP 153/69; PULSE 89; RESP 16; TEMP 37.4; O2SAT 99; BMI 22.8
[2025-03-07 01:35] LABS: Appearance Urine UA CLOUDY
[2025-03-07 01:36] LABS: Color Urine UA RED
[2025-03-07 01:38] LABS: Culture Indicated Urine Specimen Cultured
--- NOTE | 2025-03-07 01:41 | ED.MALEGU ---
HPI - Male Genitourinary General Chief complaint: Urogenital-Male Stated complaint: Blood in urine Time Seen by Provider: 03/07/25 01:40 Source: patient Mode of arrival: Ambulatory History of Present Illness HPI Narrative: Patient is 74-year-old male history of mechanical aortic valve on Coumadin presenting today with hematuria. He reports he had sudden onset of hematuria and urinary frequency. No fever or chills. Denies any back pain nausea or vomiting. He says he is able to urinate but he is going white frequently he is going to least 3 times while in the emergency department. He denies any blood clots. No prior history of prostate problems Related Data Home Medications ?Medication ?Instructions ?Recorded ?Confirmed metoprolol succinate 25 mg 50 mg PO QAM 06/23/20 12/03/24 tablet,extended release 24 hr nitroglycerin 0.3 mg sublingual 0.3 mg sublingual Q5MIN PRN Chest 06/23/20 12/03/24 tablet Pain oxycodone 5 mg tablet 5 mg PO Q8HR PRN Pain (Scale Score 06/23/20 12/03/24 4-6) sacubitril 24 mg-valsartan 26 mg 0.5 tab PO BID 06/23/20 12/03/24 tablet (Entresto) warfarin 1 mg tablet 1 mg PO SEEINSTR 06/23/20 12/03/24 warfarin 1 mg tablet 2 mg PO SEEINSTR 06/23/20 12/03/24 atorvastatin 80 mg tablet 80 mg PO BEDTIME 07/02/23 12/03/24 cholecalciferol (vitamin D3) 1,250 1,250 mcg PO QWEEK 12/15/23 12/03/24 mcg (50,000 unit) capsule Previous Rx's ?Medication ?Instructions ?Recorded cephalexin 500 mg capsule 500 mg PO BID 7 days #14 caps 03/07/25 Allergies Allergy/AdvReac Type Severity Reaction Status Date / Time No Known Drug Allergies Allergy Verified 03/07/25 01:00 Patient History Medical History Hx of completed stroke CAD (coronary artery disease) HTN (hypertension) Chronic pain Kidney stones Ascending aortic aneurysm Acute calculous cholecystitis Surgical History S/P CABG (coronary artery bypass graft) S/P AVR (aortic valve replacement) and aortoplasty AICD (automatic cardioverter/defibrillator) present Status post laparoscopic cholecystectomy Family History Mother Diabetes mellitus Father Diabetes mellitus Social History household members: spouse Smoking Status: Never smoker alcohol intake: current Smoking Status: Never smoker alcohol intake frequency: holidays/special occasions only Exam Initial Vital Signs Initial Vital Signs: Vital Signs Temperature 99.3 F 03/07/25 01:01 Pulse Rate 89 03/07/25 01:01 Respiratory Rate 16 03/07/25 01:01 Blood Pressure 153/69 H 03/07/25 01:01 Pulse Oximetry 99 03/07/25 01:01 Oxygen Delivery Method Room Air 03/07/25 01:01 GENERAL: Well-appearing, well-nourished and in no acute distress. CARDIOVASCULAR: peripheral pulses in tact, cap refill <2 sec RESPIRATORY: No respiratory distress, speaks in full sentences without difficulty AB: No suprapubic pain no guarding no rebound no CVA tenderness EXTREMITIES: Normal range of motion, no clubbing or edema. Neurovascularly intact NEUROLOGICAL: Cranial nerves II through XII grossly intact. Normal gait and speech. SKIN: Warm, dry, no petechiae, no rashes or lesions. Course Orders Ordered: ED Orders 03/07/25 00:58 Urinalysis and Microscopic Stat Urine Culture Stat Vital Signs Vital signs: Vital Signs - 8 hr 03/07/25 01:01 Temperature 99.3 F Pulse Rate 89 Respiratory Rate 16 Blood Pressure 153/69 H Pulse Oximetry 99 Oxygen Delivery Method Room Air MDM - Male Genitourinary Lab Data Labs: Lab Results 03/07/25 Range/Units 00:58 Urine Color Red Urine Appearance Cloudy Urine pH TNP Ur Specific [place] TNP Urine Protein TNP Urine Glucose (UA) TNP Urine Ketones TNP Urine Occult Blood TNP Urine Nitrate TNP Urine Bilirubin TNP Urine Urobilinogen TNP Ur Leukocyte Esterase TNP Urine RBC 30-100/hpf H (0-5/HPF) Urine WBC 30-100/hpf H (0-5/HPF) Ur Squamous Epith Cells 1-5 /hpf (0-5/HPF) Ur Renal Epithelial Cell >20/hpf H (0-1/HPF) Urine Bacteria Many (>30) H (None) WBC Casts 0-1/lpf (None) Ur Culture Indicated? Specimen cultured Vol Urine Centrifuged 10ml (spun) MDM Narrative Medical decision making narrative: Patient is 74-year-old male presenting to day with hematuria and urinary frequency. He is on warfarin. I did look at his urine myself in a urinal it is pink tinged it is not grossly bloody he does not have any blood clots in it. Urinalysis is positive for many bacteria and WBCs. I suspect infection. I do not believe he needs a catheter or irrigation at this time since it is pink tinged and he is not having any evidence of retention. He is scheduled to have his INR checked in 1 week. We discussed how antibiotics interact with Coumadin and can increase or decrease levels. Discharge Plan Departure Patient Disposition: Home Clinical Impression: Acute UTI Instructions: DI for Urinary Tract Infection (UTI), DI for Hematuria Activity Restrictions/Additional Instructions: *You have been diagnosed with UTI *What to do: At this time it does appear that you have a bladder infection. However please continue to monitor your urine. Stay hydrated urine can be pink tinged but not grossly bloody. Monitor for blood clots. Please make sure you follow-up and have your INR checked *Continue to take medications as directed Keflex 500 mg twice a day for 7 days *Follow up with your primary care provider in 2-3 days or call [phone] *Return to ER if you should have blood clots, inability to urinate grossly bloody not just pink tinged or any new, worsening or concerning symptoms Prescriptions: New cephalexin 500 mg capsule 500 mg PO BID 7 Days Qty: 14 0RF No Action nitroglycerin 0.3 mg tablet, sublingual 0.3 mg sublingual Q5MIN PRN (Reason: Chest Pain) Patient Comments: Place 1 tablet (0.3 mg total) under the tongue every 5 (five) min...(REFER TO PRESCRIPTION NOTES). metoprolol succinate 25 mg tablet extended release 24 hr 50 mg PO QAM warfarin 1 mg tablet 1 mg PO SEEINSTR Patient Comments: take 2 tablets by mouth once daily EXCEPT MONDAY AND MONDAY TAKE 1MG Rx Instructions: take 2 tablets by mouth once daily EXCEPT monday AND monday warfarin 1 mg tablet 2 mg PO SEEINSTR Patient Comments: take 2 tablets by mouth once daily EXCEPT MONDAY AND MONDAY TAKE 1MG Rx Instructions: take two tablet by mouth Monday/ Monday oxycodone 5 mg tablet 5 mg PO Q8HR PRN (Reason: Pain (Scale Score 4-6)) Patient Comments: take 1 tablet by mouth twice a day Entresto 24-26 mg tablet 0.5 tab PO BID Patient Comments: take 1/2 tablet by mouth twice a day cholecalciferol (vitamin D3) 1,250 mcg (50,000 unit) capsule 1,250 mcg PO QWEEK atorvastatin 80 mg tablet 80 mg PO BEDTIME Referrals: Mohini Dc ARNP [Primary Care Provider, Family Practice] Stand Alone Forms: Patient Portal/API
[2025-03-07 02:21] VITALS: BP 110/61; PULSE 68; RESP 16; O2SAT 98
== END 2025-03-07 02:22 | disposition home or self-care (01) ==
PROVIDERS: Emergency Provider Emergency Medicine; PCP Nurse Practitioner Family
DX: N39.0 Urinary tract infection, site not specified (principal); R31.9 Hematuria, unspecified
CPT/HCPCS: 81001; 87077; 87086; 87186; 99283